=== PATIENT | female | born 1940 | race Caucasian/White ===

== ENCOUNTER → 2017-06-10 | Outpatient (CLI) | payer MEDICARE, BC, SELFPAY | PROVIDERS: Family Provider Internal Medicine; Visit Provider Orthopaedic Surgery | DX: S82.831D Other fracture of upper and lower end of right fibula, subsequent encounter for closed fracture with routine healing (principal) | CPT/HCPCS: 73610 ==

== ENCOUNTER → 2017-08-10 11:40 | Outpatient (CLI) | payer MEDICARE, BC, SELFPAY ==
--- NOTE | 2017-08-10 11:50 | XR_ITS ---
XR chest 2V HISTORY: ITS.REASON: COPD,SHORTNESS OF AIR ORDERING PHYSICIAN: Frank Marie PATIENT AGE: 77 years COMPARISON: 04/19/2016 FINDINGS: The cardiomediastinal silhouette and pulmonary vascularity are within normal limits. Hyperinflation with hyperlucency of the upper lobes consistent with edema/COPD. Calcified granuloma is present in the left lower lobe. There are mild atelectatic changes in the right middle lobe. No acute bony anomalies. IMPRESSION: COPD/emphysema. Right middle lobe atelectasis.
== END ==
PROVIDERS: PCP Internal Medicine; Visit Provider Internal Medicine
DX: J44.9 Chronic obstructive pulmonary disease, unspecified (principal); R06.02 Shortness of breath
CPT/HCPCS: 71046

== ENCOUNTER → 2017-08-12 12:41 | Outpatient (CLI) | payer MEDICARE, BC, SELFPAY ==
--- NOTE | 2017-08-12 12:46 | CA_ITS ---
PROCEDURE: 2-D M-mode and color Doppler study INDICATIONS FOR THE TEST: Chest pain+ COPD+ Heart Murmur Tobacco Smokingex Palpitations Fatigue Syncope Edema Hypertension Diabetes Mellitus Rheumatic Fever SOB+ESPINOZA Obesity+Hyperlipidemia+ Family History HD Additional History Abn EKG PATIENT INFORMATION HEIGHT: 67 WEIGHT: 196 GENDER: Female B/P: 93/61 2-D/M-MODE INTERPRETATION: 2-D MEASUREMENTS OBSERVED VALUES IN CMS Right Ventricular Dimension (RVDd) 1.7 Interventricular Septum (Thickness)(IVsd) 1.0 Left Ventricular Internal Dimensions(LVIDd) 3.9 Left Ventricular Posterior Wall (Thickness)(LVPWd) 0.9 Aortic Root 2.3 Aortic Cusp Separation 2.0 Left Atrial Dimensions (LAD) 2.0 2D 1. Technically difficult study because of the patient's factor and poor acoustic windows 2. Left atrium is normal size, left ventricle is normal size, there is probably preserved left ventricular systolic function, visually estimated ejection fraction 55% with no obvious regional wall motion abnormality, endocardial surfaces are poorly visualized. 3. The right-sided chambers are relatively normal size and function. 4. The aortic valve is minimally thickened and fibrosed. 5. The mitral and tricuspid valve are grossly normal. 6. The pulmonic valve is poorly visualized 7. No significant pericardial effusion noted. DOPPLER INTERROGATION: Doppler interrogation of the aortic, mitral and tricuspid valvular presence of mild mitral and tricuspid regurgitation, tricuspid and jet velocity insufficient for calculation of the right ventricular systolic pressure, diastolic parameters are inconclusive. CONCLUSION: 1. Normal left ventricular size, preserved left ventricular systolic function, visually estimated ejection fraction 55% with no obvious regional wall motion abnormality, diastolic parameters are inconclusive, this is technically difficult study because of the patient's factor and poor acoustic windows, endocardial subsequent poorly visualized. 2. Mild mitral and tricuspid regurgitation 3. No significant pericardial effusion noted.
== END ==
PROVIDERS: Family Provider Internal Medicine; PCP Internal Medicine; Visit Provider Internal Medicine
DX: J44.9 Chronic obstructive pulmonary disease, unspecified (principal); I27.81 Cor pulmonale (chronic); I08.1 Rheumatic disorders of both mitral and tricuspid valves
CPT/HCPCS: 93306

== ENCOUNTER → 2019-04-10 10:11 | Outpatient (POV) | payer MEDICARE, BC, SELFPAY | PROVIDERS: Visit Provider Dermatology | DX: Z00.00 Encounter for general adult medical examination without abnormal findings (principal) ==

== ENCOUNTER 2021-02-03 10:48 | Observation (INO) | payer MEDICARE, BC, SELFPAY ==
--- NOTE | 2021-02-03 11:28 | XR_ITS ---
PROCEDURE: XR CHEST PORTABLE CLINICAL HISTORY: cough COMPARISON: CR CXR CHEST(2 VIEWS-NOT PORTABLE) from 04/19/2016 CR CXR2V XR chest 2V from 08/10/2017 FINDINGS: Mild cardiomegaly with mild pulmonary venous congestion suggesting mild CHF. COPD with increased lucency in the right upper lobe similar to the previous exam. Old granulomatous disease. Chronic changes are present in the right lower lobe. There is minimal blunting of the CP angle suggesting small bilateral effusions. No acute bony abnormalities. IMPRESSION: COPD with hyper lucency of the right upper lobe with mild CHF and small bilateral effusions Dictated by: Benito Forrest MD 02/03/2021 12:34 Benito Forrest MD in [place] 02/03/2021 12:34
--- NOTE | 2021-02-03 11:30 | HMH.EDGENADL ---
ED Disposition Clinical Impression: COVID-19 Respiratory failure with hypoxia Qualifiers: Chronicity: acute on chronic Qualified Code(s): J96.21 - Acute and chronic respiratory failure with hypoxia COPD (chronic obstructive pulmonary disease) Qualifiers: COPD type: unspecified COPD Qualified Code(s): J44.9 - Chronic obstructive pulmonary disease, unspecified Disposition: Admitted as Observation Condition on Discharge: Serious Time of Disposition: 14:54 - Critical Care Critical Care Time: Yes Attestation: On 02/03/21, the high probability of a clinically significant, sudden or life threatening deterioration of the following system(s) required my full and direct attention, intervention and personal management. The time I documented below is in addition to time spent performing reported procedures but includes the following listed in this critical care notation. Vital system(s) involved:: Respiratory Failure My critical care processes included: Assessment & monitoring of V/S, Initial and Re-exams, Coordinating Care, Medication Orders and management, Documentation Medical Decision Making - Medical Records Medical records reviewed: Yes: I reviewed the patient's medical records. - Cesar Inquiry Pt receiving controlled substance: No Vital Signs: 02/03/21 11:34 Temperature 98.8 F Temperature Source Oral Pulse Rate [Right Radial] 132 H Respiratory Rate 24 Blood Pressure [Right Arm] 132/72 Blood Pressure Mean [Right Arm] 92 Blood Pressure Source [Right Arm] Automatic Cuff Blood Pressure Position [Right Arm] Sitting 02 Sat by Pulse Oximetry 97 Oxygen Delivery Method Nasal Cannula Oxygen Flow Rate (LPM) 3 - Lab Data Lab Results 02/03/21 11:28: VBG pH 7.26 L, VBG pCO2 43.4, VBG pO2 39.4, VBG HCO3 18.9 L, VBG Total CO2 20.2 L, VBG O2 Saturation 72.2 H, VBG Base Excess -8.3 L 02/03/21 12:05: WBC 10.3, RBC 4.20, Hgb 12.2, Hct 38.0, MCV 90.5, MCH 29.2, MCHC 32.3, RDW 14.2, Plt Count 299, MPV 8.9, Neut % (Auto) 84.7 H, Lymph % (Auto) 9.0 L, [place] % (Auto) 5.3, Eos % (Auto) 0.2, Baso % (Auto) 0.7, Neut # (Auto) 8.8 H, Lymph # (Auto) 0.9, [place] # (Auto) 0.6, Eos # (Auto) 0.0, Baso # (Auto) 0.1 02/03/21 12:05: D-Dimer 0.38 02/03/21 12:05: Sodium 137, Potassium 3.7, Chloride 101, Carbon Dioxide 26, Anion Gap 13.7, BUN 12, Creatinine 0.90, Estimated Creat Clear 60, Estimated GFR 61, Est GFR ( Amer) 73, Glucose 97, Calcium 8.7, Total Bilirubin 0.4, AST 31, ALT 21, Alkaline Phosphatase 82, Troponin I < 0.01, Total Protein 7.0, Albumin 3.8, Globulin 3.2, Albumin/Globulin Ratio 1.2 02/03/21 12:05: NT-Pro-B Natriuret Pep 248 02/03/21 12:05: SARS-CoV-2 (PCR) Detected A, Influenza A Untype (PCR) Not detected, Influenza Type B (PCR) Not detected 02/03/21 12:05: Lactate 0.7 Result diagrams: 02/03/21 12:05 02/03/21 12:05 Orders (Tests/Meds): ED MEDICATIONS Discontinued Medications Generic Name Dose Route Start Last Admin Trade Name Freq PRN Reason Stop Dose Admin Dexamethasone Sodium Phosphate 8 mg 02/03/21 11:29 02/03/21 12:36 Dexamethasone 4mg/Ml 1ml Vial IV 02/03/21 11:30 8 mg ONCE ONE Administration Ceftriaxone Sodium 1 gm/ 50 mls @ 100 mls/hr 02/03/21 11:29 02/03/21 12:36 Sodium Chloride IV 02/03/21 11:58 100 mls/hr ONCE ONE Administration Azithromycin 500 mg/ Sodium 250 mls @ 250 mls/hr 02/03/21 11:30 Chloride IV 02/03/21 11:31 ONCE ONE Sodium Chloride 1,000 mls @ 999 mls/hr 02/03/21 11:45 02/03/21 12:36 Sod Chlor 0.9% 1000ml Bag IV 02/03/21 12:45 999 mls/hr .Q1H1M MAGALI Administration ORDERS Category Date Time Status Troponin I Q3H Lab 02/03/21 14:30 Ordered Troponin I Q3H Lab 02/03/21 17:30 Ordered Blood Culture Stat Micro 02/03/21 12:05 Received ECG Request by /Colten Stat Y 02/03/21 11:28 Ordered - Radiology Data #1 Image(s): Chest Image Reviewed: Yes I reviewed the patient's radiology results, Yes I reviewed the patient's radiology sayra
[2021-02-03 11:34] VITALS: BP 132/72; PULSE 132; RESP 24; TEMP 37.1; O2SAT 97; BMI 29.3
[2021-02-03 12:43] LABS: Influenza A, PCR Not Detected (NotDetected); Influenza B, PCR Not Detected (NotDetected)
[2021-02-03 12:47] LABS: Basophils # 0.1 K/mm3 (0-0.2); Basophils % 0.7 % (0.1-2.0); Eosinophils % 0.2 % (0.1-12.0); Hemoglobin 12.2 g/dL (12.2-16.2); Lymphocytes # 0.9 K/mm3 (0.7-4.5); Mean Corpuscular HGB Conc 32.3 g/dL (31.8-35.4); Mean Corpuscular Hemoglobin 29.2 pg (27.0-31.2); Mean Corpuscular Volume 90.5 fl (81-99); Mean Platelet Volume 8.9 fl (7.4-10.4); Monocytes # 0.6 K/mm3 (0.1-1.0); Monocytes % 5.3 % (1.7-9.3); Neutrophils # 8.8 K/mm3 (1.8-7.8); Neutrophils % 84.7 % (37.0-80.0); Platelet Count 299 K/mm3 (142-424); Red Cell Distribution Width 14.2 % (11.5-17.5); White Blood Count 10.3 K/mm3 (4.8-10.8)
[2021-02-03 13:16] LABS: Chloride 101 mmol/L (98-107)
[2021-02-03 13:17] LABS: Potassium 3.7 mmoL/L (3.5-5.1); Sodium 137 mmol/L (136-145)
[2021-02-03 13:19] LABS: Alanine Aminotransferase 21 U/L (12-78); Albumin Level 3.8 g/dl (3.5-5.0); Albumin/Globulin Ratio 1.2 (1.1-1.8); Alkaline Phosphatase 82 U/L (38-126); Anion Gap 13.7 mEq/L (5-15); Aspartate Amino Transferase 31 U/L (14-36); Bilirubin,Total 0.4 mg/dl (0.2-1.3); Blood Urea Nitrogen 12 mg/dl (7-17); Calcium 8.7 mg/dl (8.4-10.2); Carbon Dioxide 26 mmol/L (22.0-30.0); Creatinine Clearance Estimated 60 mL/min (50-200); Estimated Glomerular Filt Rate 61 ml/min (>60); GFR (African American) 73 ML/MIN (>60); Globulin 3.2 g/dL (1.3-3.2); Glucose 97 mg/dl (74-100); Lactic Acid 0.7 mmol/L (0.7-2.1)
[2021-02-03 13:22] LABS: Coronavirus 19, PCR Detected (NotDetected)
[2021-02-03 13:23] LABS: D-Dimer 0.38 ug/mL (0.0-0.5)
[2021-02-03 13:29] LABS: NT Pro Brain Natriuretic Pep. 248 pg/mL (0-450)
[2021-02-03 13:32] LABS: Troponin I < 0.01 ng/ml (0.00-0.034)
[2021-02-03 13:45] LABS: VBG Base Excess -8.3 mmol/L (-2.4-2.3); VBG HCO3 18.9 mmol/L (23-30); VBG Oxygen Saturation 72.2 % (50-70); VBG PCO2 43.4 mmol/L (35-51); VBG PH 7.26 mmol/L (7.31-7.41); VBG PO2 39.4 mmol/L (28-40); VBG Total CO2 20.2 mmol/L (23-27)
--- NOTE | 2021-02-03 14:33 | PC.NURSE ---
GLENNA MESSER speaking with DR. Huff who is bronzer for service pt
--- NOTE | 2021-02-03 14:34 | PC.NURSE ---
notified care management of admission, spoke with Estrella
[2021-02-03 14:50] VITALS: BMI 29.0
[2021-02-03 15:45] VITALS: BP 97/75; PULSE 106; RESP 18; TEMP 37.2; O2SAT 93
--- NOTE | 2021-02-03 15:45 | PC.NURSE ---
pt admitted to [facility] unit room 266 via wheelchair. Pt on 3L NC continuous with sat 92%. Hx of COPD and wears home O2 @ 3L NC. Tachycardia upon arrival with HR 110s. Pt is A&O. Is ambulatory with standby assist. No skin breakdown noted.
[2021-02-03 15:52] VITALS: BP 129/74; PULSE 78; RESP 22; TEMP 37; O2SAT 96
--- NOTE | 2021-02-03 17:50 | ECG_ITS ---
APPROVED REPORT Exam: Resting ECG HR:99 bpm ECG Measurements Heart Rate 99 AXES ID 142 P 65 QRSd 80 QRS 75 QT 342 T 75 QTc 438 Conclusion Normal sinus rhythm with sinus arrhythmia Nonspecific ST and T wave abnormality Abnormal ECG Electronically signed by : Yobany Cabrera MD 02/04/2021 14:11:47
--- NOTE | 2021-02-03 17:58 | HMH.HP ---
*Admission Date: 02/03/21 <Bienvenido Huff - 02/03/21 21:16> *Chief complaint: shortness of breath <StewartMichelle - 02/03/21 18:17> *History of present illness: Ms. Casper is a 80-year-old female with a history of oxygen dependent COPD who has experienced progressive shortness of breath over the last few days. With decrease in O2 sats at home she presented to the emergency room. home. Will evaluation in the emergency room she was found to have pneumonia with respiratory failure. She received 8 mg of dexamethasone IV, Rocephin IV, Zithromax IV and received a liter of IV fluids. Following is documentation from the ER. In summary this is a 80-year-old female with history of COPD presenting to the emergency department with cough, chest congestion, fevers, chills, shortness of breath. Patient is tachycardic on arrival at 130 bpm. Blood pressure adequate. Initial oxygen saturation is 94% on 3 L by nasal cannula. Differential diagnoses include COPD exacerbation, pneumonia, bronchitis, COVID-19. Cannot exclude atypical ACS or pulmonary embolism. Will obtain CBC, CMP, chest x-ray, EKG, troponin profile, D-dimer, Covid test. Patient given dexamethasone, Rocephin, azithromycin, IV fluids. Chest x-ray concerning for right-sided hypo lucency, possible pneumonia. Laboratory results reassuring. No significant leukocytosis. No glucose or electrolyte derangements. No renal insufficiency. Covid positive. Patient's overall presentation is most concerning for COVID-19. Worsening acute on chronic hypoxic respiratory failure. She is on day 4 of illness, concern for decompensation. Informed patient and of positive Covid. her primary care physician is Dr. Marie. Dr. Huff consulted for admission. The above is from ER documentation. Chest x-ray revealed COPD with hypo lucency level upper lobe with mild CHF and small bilateral effusions. Blood chemistries were normal Covid test was positive. At the time of this exam patient is on O2 at 4 L/min. She is having runs of SVT alternating with sinus rhythm. She is noted to have occasional PVCs as well. She is dyspneic with conversation. <Michelle Stewart - 02/04/21 09:47> [facility] History Medical History: Reports:: Congestive Heart Failure, Chronic Obstructive Pulmonary Disease (COPD) Denies:: Atrial Fibrillation, Cancer, Diabetes Mellitus Type 1, Diabetes Mellitus Type 2, Internal Pacemaker, MRSA <PatMichelle 02/03/21 18:24> *Have you ever received a pneumonia vaccine?: No <PatMichelle - 02/03/21 18:17> *Have you received a flu vaccine this season?: No <PatMichelle - 02/03/21 18:17> Other Medical History: Reports: Thyroid Disease <PatMichelle 02/03/21 18:17> Other Surgeries: Yes: Tubal Ligation. No: Pacemaker <PatMichelle - 02/03/21 18:17> Amputation: No <StewartMichelle 02/03/21 18:17> - *Social History Smoking Status: Former smoker <PatMichelle - 02/03/21 18:17> Alcohol Intake: never <PatMichelle - 02/03/21 18:17> *Occupational Status:: retired <StewartMichelle 02/03/21 18:17> Housing: house <PatMichelle 02/03/21 18:17> Household Members: spouse <PatMichelle 02/03/21 18:17> *Travel in the last 8 weeks: None <StewartMichelle 02/03/21 18:17> Family Hx:: no Diabetes, no Stroke <StewartMichelle 02/03/21 18:17> Review of Systems - Constitutional Denies fatigue, Denies fever(s), Denies lack of energy <PatMichelle 02/03/21 18:17> - Eyes Den[facility] change in [facility] 18:17[facility] - ENT Denies ear pain, Denies nasal congestion, Denies sore throat <Stewart,Michelle 02/03/21 18:17> - *Cardiovascular Reports shortness of breath, Denies chest pain <StewartMichelle 02/03/21 18:17> - *Respiratory Reports chest congestion, Reports cough, Reports shortness of breath, Denies coughing up blood <PatMichelle 02/03/21 18:17> - *Gastrointestinal Denies abdominal pain, Denies change in stools, Denies vomiting blood, Denies bright,
[2021-02-03 18:30] VITALS: O2SAT 95
[2021-02-03 19:38] LABS: Chloride 105 mmol/L (98-107); Sodium 139 mmol/L (136-145)
[2021-02-03 19:40] LABS: Blood Urea Nitrogen 13 mg/dl (7-17); Creatinine Clearance Estimated 60 mL/min (50-200); Estimated Glomerular Filt Rate 69 ml/min (>60); GFR (African American) 84 ML/MIN (>60)
[2021-02-03 19:41] LABS: Alanine Aminotransferase 21 U/L (12-78); Albumin Level 3.4 g/dl (3.5-5.0); Albumin/Globulin Ratio 1.1 (1.1-1.8); Alkaline Phosphatase 78 U/L (38-126); Aspartate Amino Transferase 29 U/L (14-36); Bilirubin,Total 0.2 mg/dl (0.2-1.3); Calcium 8.3 mg/dl (8.4-10.2); Carbon Dioxide 25 mmol/L (22.0-30.0); Globulin 3.1 g/dL (1.3-3.2); Glucose 131 mg/dl (74-100); Total Protein,Serum 6.5 g/dl (6.3-8.2)
[2021-02-03 20:00] VITALS: BP 116/54; PULSE 88; RESP 22; TEMP 37.4; O2SAT 94
[2021-02-03 22:03] VITALS: O2SAT 93
[2021-02-04] VITALS (8 sets, daily range): BP systolic 101–152; BP diastolic 46–83; PULSE 74–100; RESP 18–22; TEMP 36.7–36.9; O2SAT 93–99; BMI 29.1; BMI 29.0
--- NOTE | 2021-02-04 04:40 | PC.NURSE ---
shift summary patient awake alert and oriented x 4. cardiac catheterization technician has shown sr while at rest. heart rate elevates to 130s with any activity. o2 sats have maintained greater than 94% on 3l nc except with exertion. patient sats drop to 88% with ambulation. breath sounds coarse throughout all jacob. strong nonproductive cough present.
[2021-02-04 06:22] LABS: Basophils % 0.2 % (0.1-2.0); Eosinophils % 0.1 % (0.1-12.0); Hematocrit 33.7 % (37.0-47.0); Lymphocytes # 1.4 K/mm3 (0.7-4.5); Lymphocytes % 18.9 % (10-50); Mean Corpuscular HGB Conc 32.6 g/dL (31.8-35.4); Mean Corpuscular Hemoglobin 29.9 pg (27.0-31.2); Mean Corpuscular Volume 91.6 fl (81-99); Mean Platelet Volume 9.3 fl (7.4-10.4); Monocytes # 0.5 K/mm3 (0.1-1.0); Monocytes % 6.9 % (1.7-9.3); Neutrophils # 5.5 K/mm3 (1.8-7.8); Neutrophils % 73.9 % (37.0-80.0); Platelet Count 276 K/mm3 (142-424); Red Blood Count 3.68 M/mm3 (4.20-5.40); Red Cell Distribution Width 14.4 % (11.5-17.5); White Blood Count 7.4 K/mm3 (4.8-10.8)
[2021-02-04 06:32] LABS: Chloride 108 mmol/L (98-107); Sodium 140 mmol/L (136-145)
[2021-02-04 06:35] LABS: Blood Urea Nitrogen 13 mg/dl (7-17); Calcium 8.1 mg/dl (8.4-10.2); Carbon Dioxide 25 mmol/L (22.0-30.0); Creatinine Clearance Estimated 60 mL/min (50-200); Estimated Glomerular Filt Rate 69 ml/min (>60); GFR (African American) 84 ML/MIN (>60); Glucose 86 mg/dl (74-100)
--- NOTE | 2021-02-04 07:00 | XR_ITS ---
PROCEDURE: XR CHEST PORTABLE CLINICAL HISTORY: COVID Cough COMPARISON: CR CXR CHEST(2 VIEWS-NOT PORTABLE) from 04/19/2016 CR CXR2V XR chest 2V from 08/10/2017 CR XR CHEST PORTABLE from 02/03/2021 FINDINGS: Borderline cardiomegaly. Mild pulmonary venous congestion suggesting mild CHF. Small bilateral effusions. Patchy density now noted in the right mid lower lung zone suspicious for developing pneumonia. No acute bony abnormalities. IMPRESSION: Mild CHF with developing ground-glass opacity in the right mid and right lower lobe suspicious for pneumonia. Dictated by: Benito Forrest MD 02/04/2021 07:19 Benito Forrest MD in [place] 02/04/2021 07:19
--- NOTE | 2021-02-04 07:25 | HMH.PHAVTE ---
[facility] Pharmacy VTE Monitoring - Patient Demographics Admission date: 02/03/21 Report Date: 02/04/21 Time: 07:25 Allergies/Adverse Reactions: Patient Allergies codeine [CODEINE] Allergy (Mild, Verified 02/03/21 11:51) Sulfa (Sulfonamide Antibiotics) [SULFA (SULFONAMIDE ANTIBIOTICS)] Allergy (Mild, Verified 02/03/21 11:51) Height: 1.68 m Weight: 82.157 kg Patient Problems: Current Active Problems COVID-19 (Acute) Respiratory failure with hypoxia (Acute) COPD (chronic obstructive pulmonary disease) (Acute) Hypothyroidism (Acute) Acute and chronic respiratory failure with hypoxia (Acute) COVID-19 virus infection (Acute) - VTE Risk Labs: VTE Related Lab Results Hgb 11.0 g/dL (12.2-16.2) L 02/04/21 05:10 Hct 33.7 % (37.0-47.0) L 02/04/21 05:10 Plt Count 276 K/mm3 (142-424) 02/04/21 05:10 BUN 13 mg/dl (7-17) 02/04/21 05:10 Creatinine 0.80 mg/dl (0.52-1.04) 02/04/21 05:10 Estimated Creat Clear 60 mL/min (50-200) 02/04/21 05:10 Was VTE Risk Assessment Performed: Yes VTE Score: 5 VTE Risk Level: Low Risk - Prophylaxis VTE Prophylaxis Ordered?: Yes Types of VTE Prophylaxis: TEDS Knee High, Pharmacological Location of Applied Device: Bilateral Lower Extremeties Pharmacologic Type: Enoxaparin
--- NOTE | 2021-02-04 07:44 | HMH.PHAINT ---
MEDICATION RECONCILIATION COMPLETED ON PATIENT USING EXTERNAL FILL HISTORY FROM PHARMACY. -GONSALO JIMÉNEZ, ARNAVD
--- NOTE | 2021-02-04 08:29 | HMH.ACPN2 ---
<Michelle Stewart - Last Filed: 02/04/21 08:29> Internal Medicine - PN: Subj *Date: 02/04/21 *Time: 08:29 Interval history: Patient immediately states she wants to go home. She states she cannot rest of here and she is absolutely worn out. She denies chest pain. She states her cough and breathing are both better. She ate well for breakfast. Currently she is sitting up in a chair and tolerates well. She ambulates to the bathroom without difficulty. Nursing reports tachycardia with any activity. O2 sats remained greater than 90% with O2 at 3 L which is what she uses at home. Exam Vital signs and Labs for Last 24 Hours: Temp Pulse Resp BP Pulse Ox 98.1 F 100 H 22 148/71 H 93 L 02/04/21 07:39 02/04/21 07:39 02/04/21 07:39 02/04/21 07:39 02/04/21 07:39 Laboratory Results - last 24 hr 02/03/21 11:28: VBG pH 7.26 L, VBG pCO2 43.4, VBG pO2 39.4, VBG HCO3 18.9 L, VBG Total CO2 20.2 L, VBG O2 Saturation 72.2 H, VBG Base Excess -8.3 L 02/03/21 12:05: WBC 10.3, RBC 4.20, Hgb 12.2, Hct 38.0, MCV 90.5, MCH 29.2, MCHC 32.3, RDW 14.2, Plt Count 299, MPV 8.9, Neut % (Auto) 84.7 H, Lymph % (Auto) 9.0 L, [place] % (Auto) 5.3, Eos % (Auto) 0.2, Baso % (Auto) 0.7, Neut # (Auto) 8.8 H, Lymph # (Auto) 0.9, [place] # (Auto) 0.6, Eos # (Auto) 0.0, Baso # (Auto) 0.1 02/03/21 12:05: D-Dimer 0.38 02/03/21 12:05: Sodium 137, Potassium 3.7, Chloride 101, Carbon Dioxide 26, Anion Gap 13.7, BUN 12, Creatinine 0.90, Estimated Creat Clear 60, Estimated GFR 61, Est GFR ( Amer) 73, Glucose 97, Calcium 8.7, Total Bilirubin 0.4, AST 31, ALT 21, Alkaline Phosphatase 82, Troponin I < 0.01, Total Protein 7.0, Albumin 3.8, Globulin 3.2, Albumin/Globulin Ratio 1.2 02/03/21 12:05: NT-Pro-B Natriuret Pep 248 02/03/21 12:05: SARS-CoV-2 (PCR) Detected A, Influenza A Untype (PCR) Not detected, Influenza Type B (PCR) Not detected 02/03/21 12:05: Lactate 0.7 02/03/21 19:20: Sodium 139, Potassium 4.0, Chloride 105, Carbon Dioxide 25, Anion Gap 13.0, BUN 13, Creatinine 0.80, Estimated Creat Clear 60, Estimated GFR 69, Est GFR ( Amer) 84, Glucose 131 H D, Calcium 8.3 L, Total Bilirubin 0.2, AST 29, ALT 21, Alkaline Phosphatase 78, Total Protein 6.5, Albumin 3.4 L D, Globulin 3.1, Albumin/Globulin Ratio 1.1 02/04/21 05:10: WBC 7.4 D, RBC 3.68 L, Hgb 11.0 L, Hct 33.7 L, MCV 91.6, MCH 29.9, MCHC 32.6, RDW 14.4, Plt Count 276, MPV 9.3, Neut % (Auto) 73.9, Lymph % (Auto) 18.9, [place] % (Auto) 6.9, Eos % (Auto) 0.1, Baso % (Auto) 0.2, Neut # (Auto) 5.5, Lymph # (Auto) 1.4, [place] # (Auto) 0.5, Eos # (Auto) 0.0, Baso # (Auto) 0.0 02/04/21 05:10: Sodium 140, Potassium 4.0, Chloride 108 H, Carbon Dioxide 25, Anion Gap 11.0, BUN 13, Creatinine 0.80, Estimated Creat Clear 60, Estimated GFR 69, Est GFR ( Amer) 84, Glucose 86 D, Calcium 8.1 L I & O for Last 24 hours: Intake & Output 02/01/21 02/02/21 02/03/21 02/04/21 11:59 11:59 11:59 11:59 Intake Total 3375 / 3375 Balance 3375 / 3375 Weight 182 lb 181 lb 2 oz - Constitutional no acute distress Comments: Currently sitting up in chair at bedside and has completed her breakfast. - *Routine Respiratory Exam Present: diminished air movement (On the right) - *Routine Cardiovascular Exam Present: RRR (Monitor showing sinus rhythm in the 90s) - *Routine Abdominal Exam Present: soft, normoactive bowel sounds. Absent: tenderness - *Routine Extremities Exam Absent: edema, calf tenderness - *Routine Neurological Exam Present: alert, oriented X3 Assessment and Plan (1) Hypothyroidism Status: Acute Category: Medical Code(s): E03.9 - Hypothyroidism, unspecified (2) COPD (chronic obstructive pulmonary disease) Status: Acute Qualifiers: COPD type: unspecified COPD Qualified Code(s): J44.9 - Chronic obstructive pulmonary disease, unspecified Category: Medical Code(s): J44.9 - Chronic obstructive pulmonary disease, unspecified (5) Acute and chronic respiratory failure with
--- NOTE | 2021-02-04 09:03 | PC.NURSE ---
Spoke w/ Dr. Marie' office staff to make follow-up appointment. States pt will need to call office to set up follow-up and to schedule outpatient infusion treatment. Was unable to get a follow-up date/time.
--- NOTE | 2021-02-04 11:35 | HMH.PULMCON ---
*Admission Date: 02/03/21 *Reason for consult:: COVID-19 pneumonia *History of present illness: Ms. Casper is 80-year-old female carries a diagnosis of COPD on 3 L home oxygen therapy at home presented to the hospital with worsening respiratory failure and found to be COVID-19 pneumonia and pulmonary was called for further management [facility] History Medical History: Reports:: Congestive Heart Failure, Chronic Obstructive Pulmonary Disease (COPD) Denies:: Atrial Fibrillation, Cancer, Diabetes Mellitus Type 1, Diabetes Mellitus Type 2, Internal Pacemaker, MRSA *Have you ever received a pneumonia vaccine?: No *Have you received a flu vaccine this season?: No Other Medical History: Reports: Thyroid Disease Other Surgeries: Yes: Tubal Ligation. No: Pacemaker Amputation: No - *Social History Smoking Status: Former smoker Alcohol Intake: never *Occupational Status:: retired Housing: house Household Members: spouse *Travel in the last 8 weeks: None Family Hx:: no Diabetes, no Stroke ROS - Cons Reports anorexia, Reports body ache(s), Reports chills - Card Reports shortness of breath, Reports shortness of breath with activity, Reports leg swelling - Resp Respiratory: Reports non-productive cough, Reports dyspnea on exertion, Denies coughing up blood, Denies pain on inspiration - GI Gastrointestingal: Denies: abdominal pain - Psych Reports abnormal sleep pattern Meds Home Medications Medication Instructions Recorded Confirmed Type Fluticasone/Umeclidin/Vilanter 1 puff IH DAILY 02/03/21 02/04/21 History [Trelegy Ellipta 100-62.5-25] Levothyroxine Sodium 100 mcg PO DAILY 02/03/21 02/03/21 History [Levothyroxine 100mcg (0.1MG) Tab] Oxazepam 10 mg PO TID 02/03/21 02/03/21 History Roflumilast [Daliresp] 250 mcg PO DAILY 02/03/21 02/03/21 History levalbuterol HCL [Xopenex 1.25 mg IH Q8H 02/03/21 02/04/21 History 1.25mg/3mL neb] levoFLOXacin [Levaquin 500mg 500 mg PO DAILY #5 tab 02/04/21 Rx tab] Allergies Allergy/AdvReac Type Severity Reaction Status Date / Time codeine [CODEINE] Allergy Mild Verified 02/03/21 11:51 Sulfa (Sulfonamide Allergy Mild Verified 02/03/21 11:51 Antibiotics) [SULFA (SULFONAMIDE ANTIBIOTICS)] Exam - Constitutional Constitutional:: Present: no acute distress, comfortable - HENMT Exam HENMT: Present: atraumatic - Eye Exam Eyes:: Present: normal appearance both eyes and related structures - Neck Exam Neck:: Present: normal visual inspection - Respiratory Exam Respiratory:: Present: able to speak in complete sentences, respiratory distress, crackles - Cardiovascular Exam Cardiac:: Present: S1, S2 - GI Exam GI:: Present: soft - Skin Exam Skin: Present: warm, no rash - Neurological Exam Neurological: Present: alert, awake, normal cognition - Extremities Exam Extremities: Present: no cyanosis, no clubbing, clubbing - Psychiatric Exam Psychiatric: Present: normal affect Internal Medicine - CN: Reslt - Labs CBC & Chem 7: 02/04/21 05:10 02/04/21 05:10 Labs: Short CBC 02/03/21 02/04/21 Range/Units 12:05 05:10 WBC 10.3 7.4 D (4.8-10.8) K/mm3 Hgb 12.2 11.0 L (12.2-16.2) g/dL Hct 38.0 33.7 L (37.0-47.0) % Plt Count 299 276 (142-424) K/mm3 [facility] 02/03/21 02/03/21 02/04/21 12:05 19:20 05:10 Sodium 137 139 140 Potassium 3.7 4.0 4.0 Chloride 101 105 108 H Carbon Dioxide 26 25 25 BUN 12 13 13 Creatinine 0.90 0.80 0.80 Glucose 97 131 H D 86 D Calcium 8.7 8.3 L 8.1 L Cardiac Enzymes 02/03/21 Range/Units 12:05 Troponin I < 0.01 (0.00-0.034) ng/ml Liver Function 02/03/21 02/03/21 Range/Units 12:05 19:20 Total Bilirubin 0.4 0.2 (0.2-1.3) mg/dl AST 31 29 (14-36) U/L ALT 21 21 (12-78) U/L Alkaline Phosphatase 82 78 (38-126) U/L Albumin 3.8 3.4 L D (3.5-5.0) g/dl - ABG Interpretation ABG results: 02/03/21 11:28 VBG pH
--- NOTE | 2021-02-05 10:43 | HMH.DCSUM ---
General - General Admission date:: 02/03/21 <Bienvenido Huff - 03/08/21 22:55> 02/03/21 <Michelle Stewart - 02/05/21 11:00> Discharge date: 02/04/21 <Michelle Stewart - 02/05/21 11:00> HPI HPI: Ms. Casper is a 80-year-old female with a history of oxygen dependent COPD who has experienced progressive shortness of breath over the last few days. With decrease in O2 sats at home she presented to the emergency room. home. Will evaluation in the emergency room she was found to have pneumonia with respiratory failure. She received 8 mg of dexamethasone IV, Rocephin IV, Zithromax IV and received a liter of IV fluids. Following is documentation from the ER. In summary this is a 80-year-old female with history of COPD presenting to the emergency department with cough, chest congestion, fevers, chills, shortness of breath. Patient is tachycardic on arrival at 130 bpm. Blood pressure adequate. Initial oxygen saturation is 94% on 3 L by nasal cannula. Differential diagnoses include COPD exacerbation, pneumonia, bronchitis, COVID-19. Cannot exclude atypical ACS or pulmonary embolism. Will obtain CBC, CMP, chest x-ray, EKG, troponin profile, D-dimer, Covid test. Patient given dexamethasone, Rocephin, azithromycin, IV fluids. Chest x-ray concerning for right-sided hypo lucency, possible pneumonia. Laboratory results reassuring. No significant leukocytosis. No glucose or electrolyte derangements. No renal insufficiency. Covid positive. Patient's overall presentation is most concerning for COVID-19. Worsening acute on chronic hypoxic respiratory failure. She is on day 4 of illness, concern for decompensation. Informed patient and of positive Covid. her primary care physician is Dr. Marie. Dr. Huff consulted for admission. The above is from ER documentation. Chest x-ray revealed COPD with hypo lucency level upper lobe with mild CHF and small bilateral effusions. Blood chemistries were normal. Covid test was positive. At the time of this exam patient was on O2 at 4 L/min. She was having runs of SVT alternating with sinus rhythm. She was noted to have occasional PVCs as well. She was dyspneic with conversation. <Michelle Stewart - 02/05/21 11:00> Hospital Course Hospital Course: After admission patient respiratory status did not improve. O2 sats remained in the 90s on oxygen at 3 to 4 L/min. She was started on Zithromax and Rocephin and continued with steroids. On 02/04/2021 patient was insistent upon going home. She stated that she was simply worn out and had been unable to sleep at all after being hospitalized. She did have a repeat chest x-ray which showed pneumonia. She was seen by Dr. Uriarte with the following notation: Assessment and Plan for all problems:: #COVID-19 pneumonia: #COPD: #Acute on chronic hypoxic respiratory failure: Ms. Casper is 80-year-old female carries a diagnosis of COPD on 3 L long-term oxygen at home presented hospital with worsening respiratory's and found to be COVID-19 pneumonia. Patient is morning examination is ready for discharge with all the monitors on hold. Her most recent oxygen saturation was 94% on 4 L nasal cannula. Patient admits significant improvement in her symptoms since admission from yesterday. She also appeared to be volume overloaded bilateral lower extremity edema on today's examination. Patient on trilogy inhaler therapy at home. D-dimer 0.38 on admission. Patient was initiated on remdesivir along with ceftriaxone and azithromycin on admission however patient's requesting to be discharged during which she was given Regen--Cov antibody cocktail. Overall patient admits her respiratory status did show significant improved and at baseline. Agree with current plans of discharge on levofloxacin however patient need a close follow-up with the primary care physician to monitor for continued improvement. Recommend continuing her her home inhaler therapy. No prior PFTs available fo
== END 2021-02-04 13:00 | disposition home or self-care (01) ==
LOC: UTC 10:56 → ER 11:19 → ICU 14:55 → 2ND 19:10
PROVIDERS: Nurse Practitioner Family; Admitting Provider Family Medicine; Emergency Provider Emergency Medicine; PCP Internal Medicine; Visit Provider Family Medicine
DX: J44.9 Chronic obstructive pulmonary disease, unspecified (principal); U07.1 COVID-19; J96.21 Acute and chronic respiratory failure with hypoxia; Z99.81 Dependence on supplemental oxygen; J12.82 Pneumonia due to coronavirus disease 2019; E03.9 Hypothyroidism, unspecified; I50.9 Heart failure, unspecified; Z88.2 Allergy status to sulfonamides; Z88.5 Allergy status to narcotic agent
CPT/HCPCS: G0378; 36415; 71045; 80048; 80053; 82803; 83605; 83880; 84484; 85025; 85378; 87040; 93005; 94640; 94760; 96365; 96367; 96375; 99284; J0456; U0003

== ENCOUNTER → 2021-04-13 16:48 | Outpatient (CLI) | payer MEDICARE, BC, SELFPAY ==
[2021-04-13 17:08] LABS: Basophils % 0.4 % (0.1-2.0); Eosinophils # 0.2 K/mm3 (0.0-0.4); Eosinophils % 2.2 % (0.1-12.0); Hematocrit 40.2 % (37.0-47.0); Hemoglobin 12.6 g/dL (12.2-16.2); Lymphocytes # 1.3 K/mm3 (0.7-4.5); Lymphocytes % 16.1 % (10-50); Mean Corpuscular HGB Conc 31.3 g/dL (31.8-35.4); Mean Corpuscular Hemoglobin 28.9 pg (27.0-31.2); Mean Corpuscular Volume 92.4 fl (81-99); Mean Platelet Volume 10.1 fl (7.4-10.4); Monocytes # 0.4 K/mm3 (0.1-1.0); Monocytes % 4.3 % (1.7-9.3); Neutrophils # 6.4 K/mm3 (1.8-7.8); Neutrophils % 76.9 % (37.0-80.0); Platelet Count 380 K/mm3 (142-424); Red Blood Count 4.34 M/mm3 (4.20-5.40); Red Cell Distribution Width 14.5 % (11.5-17.5); White Blood Count 8.4 K/mm3 (4.8-10.8)
[2021-04-13 17:55] LABS: Alanine Aminotransferase 17 U/L (12-78); Albumin Level 3.9 g/dl (3.5-5.0); Albumin/Globulin Ratio 1.3 (1.1-1.8); Alkaline Phosphatase 69 U/L (38-126); Anion Gap 11.4 mEq/L (5-15); Aspartate Amino Transferase 28 U/L (14-36); Bilirubin,Total 0.2 mg/dl (0.2-1.3); Blood Urea Nitrogen 11 mg/dl (7-17); Calcium 9.3 mg/dl (8.4-10.2); Carbon Dioxide 34 mmol/L (22.0-30.0); Chloride 99 mmol/L (98-107); Estimated Glomerular Filt Rate 81 ml/min (>60); GFR (African American) 98 ML/MIN (>60); Globulin 3.1 g/dL (1.3-3.2); Glucose 107 mg/dl (74-100); Potassium 4.4 mmoL/L (3.5-5.1); Sodium 140 mmol/L (136-145)
[2021-04-13 18:10] LABS: T4 (Thyroxine) 11.4 ug/dl (5.53-11.0)
[2021-04-13 18:24] LABS: Thyroid Stimulating Hormone 0.65 uIU/mL (0.465-4.68)
== END ==
PROVIDERS: Visit Provider Internal Medicine
DX: R53.1 Weakness (principal); E03.9 Hypothyroidism, unspecified; F41.9 Anxiety disorder, unspecified; J44.9 Chronic obstructive pulmonary disease, unspecified; E78.5 Hyperlipidemia, unspecified; D50.9 Iron deficiency anemia, unspecified
CPT/HCPCS: 80053; 84436; 84443; 85025

== ENCOUNTER → 2022-02-23 10:49 | Outpatient (CLI) | payer MEDICARE, BC, SELFPAY ==
--- NOTE | 2022-02-23 10:56 | XR_ITS ---
FINAL REPORT CLINICAL HISTORY: .ABD PAIN, VOMITING COMPARISON: Chest x-ray dated February 04, 2021 FINDINGS: Chest: A single view of the chest demonstrates no acute cardiopulmonary process. Abdomen: Flat and upright views of the abdomen demonstrate air-filled bowel loops in a nonspecific bowel gas pattern. There is no free air. IMPRESSION: Nonspecific bowel gas pattern. Reviewed, Interpreted and Dictated by Allan Cid III, MD Transcribed by Daniel Preciado Authenticated and [facility]
[2022-02-23 11:26] LABS: Microscopic, Urine URINE MICROSCOPIC (MICROSCOPIC)
[2022-02-23 11:42] LABS: Basophils # 0.1 K/mm3 (0-0.2); Eosinophils # 0.3 K/mm3 (0.0-0.4); Eosinophils % 3.3 % (0.1-12.0); Hematocrit 27.3 % (37.0-47.0); Lymphocytes # 1.7 K/mm3 (0.7-4.5); Mean Corpuscular HGB Conc 29.4 g/dL (31.8-35.4); Mean Corpuscular Hemoglobin 23.5 pg (27.0-31.2); Mean Corpuscular Volume 79.8 fl (81-99); Mean Platelet Volume 8.5 fl (7.4-10.4); Monocytes # 0.5 K/mm3 (0.1-1.0); Monocytes % 5.8 % (1.7-9.3); Neutrophils # 6.1 K/mm3 (1.8-7.8); Neutrophils % 69.8 % (37.0-80.0); Platelet Count 489 K/mm3 (142-424); Red Blood Count 3.42 M/mm3 (4.20-5.40); Red Cell Distribution Width 16.7 % (11.5-17.5); White Blood Count 8.7 K/mm3 (4.8-10.8)
[2022-02-23 11:47] LABS: Chloride 100 mmol/L (98-107); Potassium 4.6 mmoL/L (3.5-5.1); Sodium 141 mmol/L (136-145)
[2022-02-23 11:50] LABS: Alanine Aminotransferase 19 U/L (12-78); Albumin Level 4.3 g/dl (3.5-5.0); Albumin/Globulin Ratio 1.4 (1.1-1.8); Alkaline Phosphatase 93 U/L (38-126); Anion Gap 12.6 mEq/L (5-15); Aspartate Amino Transferase 30 U/L (14-36); Blood Urea Nitrogen 13 mg/dl (7-17); Carbon Dioxide 33 mmol/L (22.0-30.0); Estimated Glomerular Filt Rate 69 ml/min (>60); GFR (African American) 84 ML/MIN (>60); Globulin 3.1 g/dL (1.3-3.2); Total Protein,Serum 7.4 g/dl (6.3-8.2)
[2022-02-23 11:51] LABS: Calcium 8.6 mg/dl (8.4-10.2); Glucose 86 mg/dl (74-100)
[2022-02-23 11:55] LABS: Bilirubin,Total < 0.1 mg/dl (0.2-1.3)
[2022-02-23 12:00] LABS: Appearance,Urine CLEAR (Clear); Bilirubin,Urine Negative (Negative); Blood, Urine Negative (Negative); Color,Urine YELLOW (Yellow); Glucose,Urine (UA) Negative (Negative); Ketones,Urine Negative (Negative); Leukocyte Esterase,Urine Negative (Negative); Nitrate,Urine Negative (Negative); PH,Urine 6.5 (5.0-8.5); Protein,Urine Negative (Negative); Urobilinogen,Urine 0.2 EU/dl (0.2)
[2022-02-23 12:22] LABS: Thyroid Stimulating Hormone 0.63 uIU/mL (0.465-4.68)
[2022-02-23 12:29] LABS: Bacteria,Urine Trace /lpf; Squamous Epithelial Cell,Urine Occasional #/hpf (0-5); WBC,Urine Occasional #/hpf (0-3)
== END ==
PROVIDERS: PCP Internal Medicine; Visit Provider Internal Medicine
DX: E03.9 Hypothyroidism, unspecified (principal); R19.7 Diarrhea, unspecified; J44.1 Chronic obstructive pulmonary disease with (acute) exacerbation; N39.0 Urinary tract infection, site not specified; D64.9 Anemia, unspecified; Z86.2 Personal history of diseases of the blood and blood-forming organs and certain disorders involving the immune mechanism
CPT/HCPCS: 36415; 74021; 80053; 81001; 84443; 85025; 86850

== ENCOUNTER 2022-02-24 08:22 | Outpatient (CLI) | payer MEDICARE, BC, SELFPAY ==
[2022-02-24] VITALS (18 sets, daily range): BP systolic 107–138; BP diastolic 56–71; PULSE 94–114; RESP 20–22; TEMP 36.1–36.3; O2SAT 96–98; BMI 69.3
[2022-02-24 14:36] LABS: Hematocrit 31.8 % (37.0-47.0); Hemoglobin 9.8 g/dL (12.2-16.2)
== END 2022-02-24 14:30 | disposition home or self-care (01) ==
LOC: INF 08:23
PROVIDERS: PCP Internal Medicine; Visit Provider Internal Medicine
DX: D64.9 Anemia, unspecified (principal)
CPT/HCPCS: 36430; 85014; 85018; P9016

== ENCOUNTER → 2022-04-20 12:15 | Outpatient (CLI) | payer MEDICARE, BC, SELFPAY ==
[2022-04-20 15:33] LABS: Basophils # 0.1 K/mm3 (0-0.2); Basophils % 0.8 % (0.1-2.0); Eosinophils # 0.2 K/mm3 (0.0-0.4); Hematocrit 34.7 % (37.0-47.0); Hemoglobin 10.5 g/dL (12.2-16.2); Lymphocytes # 1.3 K/mm3 (0.7-4.5); Lymphocytes % 16.4 % (10-50); Mean Corpuscular HGB Conc 30.1 g/dL (31.8-35.4); Mean Corpuscular Hemoglobin 26.5 pg (27.0-31.2); Mean Corpuscular Volume 87.9 fl (81-99); Mean Platelet Volume 9.3 fl (7.4-10.4); Monocytes # 0.5 K/mm3 (0.1-1.0); Monocytes % 6.4 % (1.7-9.3); Neutrophils # 5.7 K/mm3 (1.8-7.8); Neutrophils % 73.4 % (37.0-80.0); Platelet Count 426 K/mm3 (142-424); Red Blood Count 3.95 M/mm3 (4.20-5.40); Red Cell Distribution Width 18.3 % (11.5-17.5); White Blood Count 7.7 K/mm3 (4.8-10.8)
[2022-04-20 16:32] LABS: Alanine Aminotransferase 15 U/L (12-78); Albumin Level 4.2 g/dl (3.5-5.0); Albumin/Globulin Ratio 1.5 (1.1-1.8); Alkaline Phosphatase 80 U/L (38-126); Aspartate Amino Transferase 24 U/L (14-36); Blood Urea Nitrogen 9 mg/dl (7-17); Calcium 9.6 mg/dl (8.4-10.2); Carbon Dioxide 33 mmol/L (22.0-30.0); Chloride 97 mmol/L (98-107); Estimated Glomerular Filt Rate 60 ml/min (>60); GFR (African American) 73 ML/MIN (>60); Globulin 2.8 g/dL (1.3-3.2); Glucose 87 mg/dl (74-100); Sodium 141 mmol/L (136-145)
[2022-04-20 16:52] LABS: Bilirubin,Total < 0.1 mg/dl (0.2-1.3)
[2022-04-20 17:01] LABS: Thyroid Stimulating Hormone 1.53 uIU/mL (0.465-4.68)
[2022-04-20 17:20] LABS: Vitamin B12 602 pg/mL (239-931)
[2022-04-20 18:47] LABS: Iron 77 ug/dL (37-170)
[2022-04-20 18:56] LABS: Total Iron Binding Capacity 359 ug/dL (265-497)
== END ==
PROVIDERS: PCP Internal Medicine; Visit Provider Internal Medicine
DX: E03.9 Hypothyroidism, unspecified (principal); R53.1 Weakness; D50.9 Iron deficiency anemia, unspecified; D64.9 Anemia, unspecified; J44.9 Chronic obstructive pulmonary disease, unspecified; F41.9 Anxiety disorder, unspecified
CPT/HCPCS: 80053; 82607; 83540; 83550; 84443; 85025

== ENCOUNTER 2022-06-21 12:14 | Observation (INO) | payer MEDICARE, BC, SELFPAY ==
[2022-06-21] VITALS (12 sets, daily range): BP systolic 101–162; BP diastolic 46–72; PULSE 70–93; RESP 16–22; TEMP 36.6–36.9; O2SAT 97–100; BMI 28.1; BMI 29.8
--- NOTE | 2022-06-21 12:16 | CT_ITS ---
FINAL REPORT CLINICAL HISTORY: r arm numbness r/o stroke FINDINGS: Axial images of the head were obtained without contrast. Coronal reformatted images were also obtained. This study was performed with techniques to keep radiation doses as low as reasonably achievable (ALARA). Individualized dose reduction techniques using automated exposure control or adjustment of mA and/or kV according to the patient's size were employed. There is generalized age-appropriate atrophy. Periventricular low-attenuation areas are seen consistent with moderate chronic ischemic changes. There is no evidence of intracranial hemorrhage or mass. There is no evidence of acute infarct. There is no evidence of shift of the midline structures. No skull abnormality is seen on the bone window images. There is partial opacification of the left sphenoid sinus. IMPRESSION: Atrophy and moderate periventricular chronic ischemic changes. No acute intracranial abnormality identified. Reviewed, Interpreted and Dictated by Allan Cid III, MD Transcribed by Daniel Preciado Authenticated and [facility]
--- NOTE | 2022-06-21 12:21 | XR_ITS ---
FINAL REPORT CLINICAL HISTORY: cva COMPARISON: January 2021 FINDINGS: The heart size is normal. The mediastinum is within normal limits. There is mild atelectasis or scarring in the right lung. There is no pleural effusion. There is no pneumothorax. The bony thorax is intact. IMPRESSION: Mild right lung atelectasis or scarring. Reviewed, Interpreted and Dictated by Allan Cid III, MD Transcribed by Daniel Preciado Authenticated and [facility]
--- NOTE | 2022-06-21 12:21 | PC.NURSE ---
1220- pt to ct
--- NOTE | 2022-06-21 12:22 | HMH.EDGENADL ---
Discharge Plan Disposition Patient Disposition: Admitted as Observation Condition: Good Prescriptions Prescriptions: No Action oxazepam 10 MG capsule 10 mg PO TID levothyroxine 100 MCG tablet 100 mcg PO DAILY levalbuterol HCl 1.25 MG/3 ML solution for nebulization 1.25 mg IH Q8H [id number]-qedkirhef-[id number] 1 EACH blister with device 1 puff IH DAILY roflumilast 250 MCG tablet 250 mcg PO DAILY Label Comments: TAKE ONE TABLET BY MOUTH EVERY DAY levofloxacin 500 MG tablet 500 mg PO DAILY Referrals Follow up/Referrals: Frank Marie MD [Primary Care Provider] - See instructions Clinical Impressions Clinical Impression: Transient cerebral ischemia Discharge ED Provider: Nate Onofre General Adult HPI General Chief complaint: Neuro Symptoms/Deficit Stated complaint: r arm numbness Time Seen by Provider: 06/21/22 12:15 Mode of Arrival: Wheelchair Source of Information: Patient and Spouse Limitations: No Limitations History of Present Illness HPI narrative: 82yo F presents to the ER from her PCP office secondary to potential stroke. Patient has a past medical history of respiratory failure with hypoxia, COPD, hypothyroidism and COVID-19. Patient reports she went to bed at 6 PM but was up and down several times throughout the night to use the restroom. Last trip to the restroom was approximately 5:00 in the morning and she states she had no neurologic deficit at that time. Denies previous history of stroke. Only complaint is her right upper extremity does not feel normal. Denies headache or visual acuity change. Related Data Home Medications Medication Instructions Recorded Confirmed fluticasone fur. 100 mcg-umeclid 1 puff IH DAILY COPD 02/03/21 02/24/22 62.5 mcg-vilant 25 mcg inhalat.powder levalbuterol HCl 1.25 mg/3 mL 1.25 mg IH Q8H Breathing problems 02/03/21 02/24/22 solution for nebulization levothyroxine 100 mcg tablet 100 mcg PO DAILY thyroid 02/03/21 02/24/22 oxazepam 10 mg capsule 10 mg PO TID Anxiety 02/03/21 02/24/22 roflumilast 250 mcg tablet 250 mcg PO DAILY COPD 02/03/21 02/24/22 levofloxacin 500 mg tablet 500 mg PO DAILY UTI 02/24/22 02/24/22 Allergies Allergy/AdvReac Type Severity Reaction Status Date / Time codeine [CODEINE] Allergy Mild Verified 02/03/21 11:51 Sulfa (Sulfonamide Allergy Mild Verified 02/03/21 11:51 Antibiotics) [SULFA (SULFONAMIDE ANTIBIOTICS)] [facility] Disclaimer: The information contained in this section may have been updated after the patient was seen, as this information can be updated by other users. Medical History Anxiety COPD (chronic obstructive pulmonary disease) History of COVID-19 Hypothyroidism Surgical History Hx of tubal ligation Family History Other No significant family history Social History Smoking Status: Former smoker alcohol intake: never current occupational status: retired Travel in the last 8 weeks: None household members: spouse housing: house marital status: education level: high school service: No jail: No caffeine: No ROS Obtained: Yes Systems reviewed as appropriate & no additional complaints except as documented Physical Exam General General appearance: alert and in no apparent distress Head Head exam: atraumatic, normocephalic and normal inspection Eye Eye exam: Present normal appearance, PERRL and EOMI; Absent scleral icterus, conjunctival redness or conjunctival injection Neck Neck exam: Present normal inspection and trachea midline Chest Chest inspection: Present normal inspection and symmetric chest wall rise Respiratory Respiratory exam: Present normal lung sounds bilaterally; Absen
--- NOTE | 2022-06-21 12:32 | PC.NURSE ---
pt return from ct, pt requesting to stay in wheelchair at this time
[2022-06-21 13:06] LABS: Basophils # 0.1 K/mm3 (0-0.2); Basophils % 0.6 % (0.1-2.0); Eosinophils # 0.2 K/mm3 (0.0-0.4); Eosinophils % 1.8 % (0.1-12.0); Hematocrit 32.8 % (37.0-47.0); Hemoglobin 10.7 g/dL (12.2-16.2); Lymphocytes # 1.2 K/mm3 (0.7-4.5); Lymphocytes % 14.2 % (10-50); Mean Corpuscular HGB Conc 32.6 g/dL (31.8-35.4); Mean Corpuscular Hemoglobin 29.1 pg (27.0-31.2); Mean Corpuscular Volume 89.2 fl (81-99); Monocytes # 0.5 K/mm3 (0.1-1.0); Monocytes % 5.6 % (1.7-9.3); Neutrophils # 6.6 K/mm3 (1.8-7.8); Neutrophils % 77.7 % (37.0-80.0); Platelet Count 411 K/mm3 (142-424); Red Blood Count 3.68 M/mm3 (4.20-5.40); Red Cell Distribution Width 14.8 % (11.5-17.5); White Blood Count 8.4 K/mm3 (4.8-10.8)
[2022-06-21 13:21] LABS: Chloride 101 mmol/L (98-107); Potassium 4.4 mmoL/L (3.5-5.1); Sodium 140 mmol/L (136-145)
[2022-06-21 13:22] LABS: INR 0.93 (0.9-1.1); Prothrombin Time 10.1 seconds (10.1-12.5)
[2022-06-21 13:23] LABS: Blood Urea Nitrogen 16 mg/dl (7-17); Creatinine Clearance Estimated 58 mL/min (50-200); Estimated Glomerular Filt Rate 60 ml/min (>60); GFR (African American) 73 ML/MIN (>60)
[2022-06-21 13:24] LABS: Alanine Aminotransferase 17 U/L (12-78); Albumin Level 4.3 g/dl (3.5-5.0); Albumin/Globulin Ratio 1.3 (1.1-1.8); Alkaline Phosphatase 76 U/L (38-126); Anion Gap 10.4 mEq/L (5-15); Aspartate Amino Transferase 28 U/L (14-36); Bilirubin,Total 0.2 mg/dl (0.2-1.3); Calcium 9.1 mg/dl (8.4-10.2); Carbon Dioxide 33 mmol/L (22.0-30.0); Globulin 3.3 g/dL (1.3-3.2); Glucose 94 mg/dl (74-100); Total Protein,Serum 7.6 g/dl (6.3-8.2)
--- NOTE | 2022-06-21 13:26 | ECG_ITS ---
APPROVED REPORT Exam: Resting ECG HR:79 bpm ECG Measurements Heart Rate 79 AXES CO 131 P 56 QRSd 86 QRS 76 QT 380 T 70 QTc 415 Conclusion SINUS RHYTHM NORMAL ECG UNCONFIRMED REPORT Electronically signed by : Yobany Cabrera MD 06/21/2022 19:21:38
--- NOTE | 2022-06-21 14:54 | PC.NURSE ---
notified care management of admission, spoke with connie
--- NOTE | 2022-06-21 14:55 | PC.NURSE ---
per lab staff pt covid swab is the next in line to go on the analyzer
[2022-06-21 15:03] LABS: Coronavirus 19, PCR Not Detected (NotDetected); Influenza A, PCR Not Detected (NotDetected); Influenza B, PCR Not Detected (NotDetected); Microscopic, Urine URINE MICROSCOPIC (MICROSCOPIC)
[2022-06-21 15:09] LABS: Appearance,Urine CLEAR (Clear); Bilirubin,Urine Negative (Negative); Blood, Urine TRACE-I (Negative); Color,Urine YELLOW (Yellow); Glucose,Urine (UA) Negative (Negative); Ketones,Urine TRACE (Negative); Leukocyte Esterase,Urine 1+ (Negative); Nitrate,Urine POSITIVE (Negative); Protein,Urine Negative (Negative); Specific Gravity, Urine 1.025 (1.005-1.030); Urobilinogen,Urine 0.2 EU/dl (0.2)
--- NOTE | 2022-06-21 15:39 | PC.NURSE ---
attempted to call report to second floor, waiting region manager back
[2022-06-21 15:40] LABS: Bacteria,Urine 3+ /lpf; RBC,Urine Occasional #/hpf (0-3)
--- NOTE | 2022-06-21 16:00 | PC.NURSE ---
report called to adrianarn
--- NOTE | 2022-06-21 16:16 | PC.NURSE ---
arrived to floor by wheelchair from ED
--- NOTE | 2022-06-21 17:11 | ECG_ITS ---
APPROVED REPORT Exam: Resting ECG HR:87 bpm ECG Measurements Heart Rate 87 AXES TX 148 P 71 QRSd 86 QRS 86 QT 365 T 80 QTc 410 Conclusion SINUS RHYTHM MINIMAL ST DEPRESSION [0.025+ mV ST DEPRESSION] BORDERLINE ECG UNCONFIRMED REPORT Electronically signed by : Yobany Cabrera MD 06/22/2022 10:18:20
--- NOTE | 2022-06-21 17:29 | EXP.HP ---
History of Present Illness *Admission Date: 06/21/22 *Reason for visit:: Arm numbness/TIA *History of present illness: 82yo F presents to the ER from her PCP office secondary to potential stroke. Patient has a past medical history of respiratory failure with hypoxia, COPD, hypothyroidism and COVID-19. Patient reports she went to bed at 6 PM but was up and down several times throughout the night to use the restroom. Last trip to the restroom was approximately 5:00 in the morning and she states she had no neurologic deficit at that time. Arm abnormalities present for approximately 8 hours before spontaneously resolving. On arrival to the emergency department she had mild symptoms but rapidly resolving and upon MD evaluation all symptoms have resolved. Currently she is asymptomatic and has no acute complaints. She denies any shortness of breath, palpitations. She has no lower extremity edema or swelling. Discussed plan for admission involving work-up for etiology of TIA, patient is agreeable. All questions were answered [facility] Disclaimer: The information contained in this section may have been updated after the patient was seen, as this information can be updated by other users. Medical History Anxiety COPD (chronic obstructive pulmonary disease) History of COVID-19 Hypothyroidism Surgical History Hx of tubal ligation Family History Other No significant family history Social History Smoking Status: Former smoker alcohol intake: never current occupational status: retired Travel in the last 8 weeks: None household members: spouse housing: house marital status: education level: high school service: No care home: No caffeine: No Review of Systems Review of Systems Review of systems:: pertinent systems reviewed and negative unless documented below Constitutional Constitutional: Reports system reviewed and no additional complaints, except as documented, Denies chills and Reports weakness Eyes Eyes: Reports system reviewed and no additional complaints, except as documented ENT Ears, Nose, Mouth, and Throat: Reports system reviewed and no additional complaints, except as documented and Denies disequilibrium *Cardiovascular Cardiovascular: Denies chest pain and Reports dyspnea *Respiratory Respiratory: Reports cough and Reports dyspnea *Gastrointestinal Gastrointestinal: Reports system reviewed and no additional complaints, except as documented *Genitourinary Genitourinary: Reports system reviewed and no additional complaints, except as documented *Musculoskeletal Musculoskeletal: Denies arthralgias, Denies joint swelling, Reports numbness and Reports tingling *Neurologic Neurologic: Reports system reviewed and no additional complaints, except as documented, Denies abnormal movements, Denies abnormal speech, Denies disequilibrium, Reports numbness, Reports tingling and Reports weakness Psychiatric Psychiatric: Reports system reviewed and no additional complaints, except as documented Hematologic/Lymphatic Hematologic/Lymphatic: Reports system reviewed and no additional complaints, except as documented Meds Home Medications and Allergies Home Medications Medication Instructions Recorded Confirmed Type fluticasone fur. 100 mcg-umeclid 1 puff IH DAILY COPD 02/03/21 02/24/22 History 62.5 mcg-vilant 25 mcg inhalat.powder levalbuterol HCl 1.25 mg/3 mL 1.25 mg IH Q8H Breathing problems 02/03/21 02/24/22 History solution for nebulization levothyroxine 100 mcg tablet 100 mcg PO DAILY thyroid 02/03/21 02/24/22 History oxazepam 10 mg capsule 10 mg PO TID Anxiety 02/03/21 02/24/22 History roflumilast 250 mcg tablet 250 mcg PO DAILY COPD 02/03/21 02/24/22 History lev
[2022-06-21 17:59] LABS: Thyroid Stimulating Hormone 1.71 uIU/mL (0.465-4.68)
[2022-06-21 18:26] LABS: NT Pro Brain Natriuretic Pep. 50.4 pg/mL (0-450)
--- NOTE | 2022-06-21 18:26 | PC.NURSE ---
Pt assessment completed upon arrival. Pt able to complete assessment without issues. No facial droop or arm drift noted. [employer] strength and pedal pushes were both normal. Pts speech is normal and pt. is alert and oriented x4. Pt. does complain of shortness of breath, she is on 3L NC baseline and is maintaining an O2 sat of >95%.
--- NOTE | 2022-06-21 18:30 | PC.NURSE ---
Pt. was unable to complete MRI due to not being able to lay flat. Jesus Berumen MD notified.
[2022-06-22] VITALS (7 sets, daily range): BP systolic 142–178; BP diastolic 52–72; PULSE 80–120; RESP 17–19; TEMP 36.4–36.6; O2SAT 98–100; BMI 29.8
--- NOTE | 2022-06-22 02:33 | PC.NURSE ---
Pt in bed resting at this time, daughter at bedside. Pt has been up to restroom with standby assist, tolerated well. Reports the strength in right upper extremity is good. States she does not know why she lost strength in in, but it's restored. Pt has been on 3L 02 all shift, anxiety reported. Pt has been given prn anxiety medication. Has shortness of air when ambulating. Lungs where clear but diminished, resp even and non labored at rest. IV is patent. Pt educated on Plan of care and medications, bed locked in low position, side rails up x 2, call light in reach.
[2022-06-22 07:26] LABS: Basophils % 0.6 % (0.1-2.0); Eosinophils # 0.2 K/mm3 (0.0-0.4); Hemoglobin 10.7 g/dL (12.2-16.2); Lymphocytes # 1.4 K/mm3 (0.7-4.5); Lymphocytes % 22.8 % (10-50); Mean Corpuscular HGB Conc 31.5 g/dL (31.8-35.4); Mean Corpuscular Hemoglobin 28.4 pg (27.0-31.2); Mean Corpuscular Volume 90.1 fl (81-99); Mean Platelet Volume 8.3 fl (7.4-10.4); Monocytes # 0.4 K/mm3 (0.1-1.0); Monocytes % 6.8 % (1.7-9.3); Neutrophils # 3.9 K/mm3 (1.8-7.8); Neutrophils % 65.8 % (37.0-80.0); Platelet Count 344 K/mm3 (142-424); Red Blood Count 3.77 M/mm3 (4.20-5.40); Red Cell Distribution Width 14.7 % (11.5-17.5)
[2022-06-22 08:00] LABS: Chloride 104 mmol/L (98-107); Potassium 3.9 mmoL/L (3.5-5.1); Sodium 142 mmol/L (136-145)
[2022-06-22 08:02] LABS: Alanine Aminotransferase 16 U/L (12-78); Aspartate Amino Transferase 24 U/L (14-36); Blood Urea Nitrogen 15 mg/dl (7-17); Creatinine Clearance Estimated 61 mL/min (50-200); Estimated Glomerular Filt Rate 53 ml/min (>60); GFR (African American) 65 ML/MIN (>60)
[2022-06-22 08:03] LABS: Albumin Level 3.9 g/dl (3.5-5.0); Albumin/Globulin Ratio 1.3 (1.1-1.8); Alkaline Phosphatase 64 U/L (38-126); Anion Gap 8.9 mEq/L (5-15); Bilirubin,Total 0.2 mg/dl (0.2-1.3); Calcium 8.9 mg/dl (8.4-10.2); Carbon Dioxide 33 mmol/L (22.0-30.0); Glucose 102 mg/dl (74-100); Magnesium 1.9 mg/dl (1.6-2.3); Phosphorous 3.5 mg/dl (2.5-4.5); Total Protein,Serum 6.9 g/dl (6.3-8.2)
--- NOTE | 2022-06-22 10:31 | HMH.OTEV ---
OT Inpatient Evaluation Rehab OT IP Evaluation Start: 06/21/22 16:58 Freq: ONCE Status: Active Protocol: Document 06/22/22 10:00 MICHAEL (Rec: 06/22/22 10:30 [facility] [id number]) Rehab OT IP Assessment Subjective History Pt oriented x 3 on arrival. Pt agreeable to engage in therapy evaluation. Pt was admitted on 06/21/22 due to arm numbness/TIA. Prior to being in the hospital, pt lived at home with her . Pt reports she was independent with all ADLs such as dressing , bathing, and feeding. Pt reports she was dependent upon her for completion of IADLs such as cooking, grocery shopping, and laundry. She also has a cleaning lady come weekly. She does not use a walker or cane during ambulation. She is on oxygen at all times. Pt has a past medical history of: Anxiety COPD (chronic obstructive pulmonary disease) History of COVID-19 Hypothyroidism Subjective I am ready to go home and get some rest. Objective Patient Orientation Person,Place,Birthday Upper Extremity Gross ROM WFL Bed Mobility bed mobility-scooting,bed mobility - supine/sit,bed mobility - rolling Assist Level Supervision/Stand by Transfer Training Sit/Stand Transfer Assist Level Supervision/Stand by Chair Transfer Ability Supervision/Stand by Chair Transfer Technique Sit to/from Ambulatory Chair Transfer Assistive Devices None Lower Body Dressing Ability Standby Assistance Rehab OT IP prob,goals,plan Problems Date of Evaluation: 06/22/22 Rehab Potential Rehab Potential Innapropriate for Skilled Therapy Discharge Plan OT Discharge Plan At this time, pt appears to be at baseline with all ADLs and functional transfers. Her symptoms of RUE weakness have resolved.
--- NOTE | 2022-06-22 11:03 | HMH.PTEV ---
Physical Therapy Evaluation Rehab PT IP Evaluation Start: 06/21/22 16:58 Freq: .once Status: Active Protocol: Document 06/22/22 09:00 BLAKE (Rec: 06/22/22 11:03 BLAKE [id number]) Subjective/History History History 82 yowf adm to [facility] with possible TIA, symptoms all now resolved. She reports she lives with spouse, 1-2 steps to enter the home, She is generally independent with all mobility without an AD, but does use oxygen via NC at all times due to COPD. Subjective Subjective Pt with no c/o this am other than feeling tired. Rehab PT IP Eval Objective Appearance Patient Behavior Appropriate Patient Orientation Person,Place,Time Difficulty following instructions none Speech Pattern Clear Ambulation Patient Able to Ambulate Yes Ambulation Observation IP General Gait Pattern Observation Wide Based Gait Ambulation Distance (feet) 20 Ambulation Assistive Device None Ambulation Ability Supervision/Stand by Balance Ability to Arise Able, uses arms to help Sitting Balance Steady, safe Standing Balance Steady, wide stance Dynamic Sitting Balance Ability Good Dynamic Standing Balance Ability Good Transfers Bed Transfer Ability Supervision/Stand by Chair Transfer Ability Supervision/Stand by Sit to Stand Bed Transfer Ability Supervision/Stand by Sit to Stand Chair Transfer Ability Supervision/Stand by ROM All Extremities PT ROM Status WFL MMT All Extremities PT MMT WFL Rehab PT IP prob,goals,plan Problems Date of Evaluation: 06/22/22 Discharge Plan PT Discharge Plan Pt is currently at baseline for all mobility, UE and LE strength WNL. She is appropriate to return home once medically stable for d/c. G -code Required No Eval Complexity Eval Charge Codes 86488 - Moderate Complexity PHYSICIAN CERTIFICATION: I certify the specified therapy services for Beba Casper are required, authorized, and reviewed every 30 days.
--- NOTE | 2022-06-22 11:20 | EXP.DC.SUM ---
General Admission date:: 06/21/22 Discharge date: 06/22/22 HPI HPI HPI: 82yo F presents to the ER from her PCP office secondary to potential stroke. Patient has a past medical history of respiratory failure with hypoxia, COPD, hypothyroidism and COVID-19. Patient reports she went to bed at 6 PM but was up and down several times throughout the night to use the restroom. Last trip to the restroom was approximately 5:00 in the morning and she states she had no neurologic deficit at that time. Arm abnormalities present for approximately 8 hours before spontaneously resolving. On arrival to the emergency department she had mild symptoms but rapidly resolving and upon MD evaluation all symptoms have resolved. Currently she is asymptomatic and has no acute complaints. She denies any shortness of breath, palpitations. She has no lower extremity edema or swelling. Discussed plan for admission involving work-up for etiology of TIA, patient is agreeable. All questions were answered Hospital Course Hospital Course Hospital Course: 82-year-old female with COPD presenting with right upper extremity paresthesias and weakness.? Symptom onset approximately 8 hours with spontaneous resolution.? Symptoms most consistent with TIA.? Monitored overnight with resolution of symptoms. Work-up and problems addressed as follows. TIA -Admitted for observation. Symptoms resolved very quickly during admission. CT of head obtained with the following finding: Atrophy and moderate periventricular chronic ischemic changes. No acute intracranial abnormality identified.. Deferred further work-up including carotid duplex, consideration for MRI, and repeat echo (last obtained in 2018 with no abnormalities identified) to outpatient setting. Patient initiated on aspirin, Plavix. Recommend continuing for 90 days. PT and OT evaluated, patient at baseline level of function. Stable to discharge home with close follow-up with PCP. Additionally was noted to have UTI on urine obtained on admission. Started on empiric antibiotics. Urine culture positive for E. coli, sensitive to cephalosporins. Plan to complete 7-day course. Hypothyroidism -TSH 1.7, controlled on current regimen. Continue home dose of Synthroid COPD-continue home inhalers, stable on home baseline oxygen Anxiety-continue home oxazepam Exam Data for Last 24 hours Vital signs and Labs for Last 24 Hours: Temp Pulse Resp BP Pulse Ox 97.6 F 120 H 17 142/64 H 100 06/22/22 08:00 06/22/22 08:00 06/22/22 08:00 06/22/22 08:00 06/22/22 08:50 Laboratory Results - last 24 hr 06/21/22 12:45: WBC 8.4, RBC 3.68 L, Hgb 10.7 L, Hct 32.8 L, MCV 89.2, MCH 29.1, MCHC 32.6, RDW 14.8, Plt Count 411, MPV 8.0, Neut % (Auto) 77.7, Lymph % (Auto) 14.2, [place] % (Auto) 5.6, Eos % (Auto) 1.8, Baso % (Auto) 0.6, Neut # (Auto) 6.6, Lymph # (Auto) 1.2, [place] # (Auto) 0.5, Eos # (Auto) 0.2, Baso # (Auto) 0.1 06/21/22 12:45: PT 10.1, INR 0.93 06/21/22 12:45: Sodium 140, Potassium 4.4, Chloride 101, Carbon Dioxide 33 H, Anion Gap 10.4, BUN 16, Creatinine 0.90, Estimated Creat Clear 58, Estimated GFR 60, Est GFR ( Amer) 73, Glucose 94, Calcium 9.1, Total Bilirubin 0.2, AST 28, ALT 17, Alkaline Phosphatase 76, Total Protein 7.6, Albumin 4.3, Globulin 3.3 H, Albumin/Globulin Ratio 1.3 06/21/22 12:45: TSH 1.71 06/21/22 12:45: NT-Pro-B Natriuret Pep 50.4 06/21/22 14:23: Urine Color Yellow, Urine Appearance Clear, Urine pH 6.0, Ur Specific [place] 1.025, Urine Protein Negative, Urine Glucose (UA) Negative, Urine Ketones Trace, Urine Blood Trace-i, Urine Nitrate Positive, Urine Bilirubin Negative, Urine Urobilinogen 0.2, Ur Leukocyte Esterase 1+ A, Urine RBC Occasional, Urine WBC 5-10, Ur Squamous Epith Cells 3-5, Urine Bacteria 3+ 06/21/22 14:23: SARS-CoV-2 (PCR) Not detected, Influenza A Untype (PCR) Not detected, Influenza Type B (PCR) Not detected 06/22/22 06:55: WBC 6.0 D, RBC 3.77 L, Hgb 10.7 L, Hct 34.0 L, MCV 90.1, MCH 28
--- NOTE | 2022-06-22 11:48 | PC.NURSE ---
Dr. Larose aware of patient's tachycardia with exertion
--- NOTE | 2022-06-22 13:16 | P.CONPHA_ITS ---
Pharmacy Intervention Comments: Met with patient and at bedside to supervisor counseling and guidance on discharge medications. Discussed NEW and continued medications, indications, and possible adverse effects/mitigation strategies. Patient and family verbalized understanding of information provided and had no questions or concerns at this time. -Amy Cosme, PharmD Candidate 2022
--- NOTE | 2022-06-23 13:35 | EXP.EVENT.NO ---
Urine culture returned resistant to fluoroquinolones. Sensitive to cephalosporins. New prescription sent, patient informed. Spoke to her Jorge
== END 2022-06-22 12:55 | disposition home or self-care (01) ==
LOC: ER 14:50 → 2ND 15:18
PROVIDERS: Student in an Organized Health Care Education/Training Program; Admitting Provider Internal Medicine Adolescent Medicine; Emergency Provider Family Medicine; PCP Internal Medicine; Visit Provider Internal Medicine Adolescent Medicine
DX: G45.9 Transient cerebral ischemic attack, unspecified (principal); E03.9 Hypothyroidism, unspecified; F41.9 Anxiety disorder, unspecified; J96.11 Chronic respiratory failure with hypoxia; J44.9 Chronic obstructive pulmonary disease, unspecified; Z86.16 Personal history of COVID-19; N39.0 Urinary tract infection, site not specified; Z79.899 Other long term (current) drug therapy; R06.9 Unspecified abnormalities of breathing; Z20.822 Contact with and (suspected) exposure to COVID-19
CPT/HCPCS: G0378; 36415; 70450; 71045; 80053; 81001; 83735; 83880; 84100; 84443; 85025; 85610; 87086; 87088; 87186; 93005; 93306; 93880; 94640; 94761; 97162; 97165; 99291; C9803; J0696; U0003; U0005

== ENCOUNTER 2022-07-15 14:19 | Observation (INO) | payer MEDICARE, BC, SELFPAY ==
[2022-07-15] VITALS (38 sets, daily range): BP systolic 100–151; BP diastolic 37–105; PULSE 80–146; RESP 14–33; TEMP 36.7–37.3; O2SAT 82–100; BMI 28.1
[2022-07-15 14:50] LABS: Basophils % 0.4 % (0.1-2.0); Eosinophils # 0.2 K/mm3 (0.0-0.4); Eosinophils % 2.8 % (0.1-12.0); Hematocrit 22.5 % (37.0-47.0); Lymphocytes # 1.1 K/mm3 (0.7-4.5); Lymphocytes % 13.7 % (10-50); Mean Corpuscular HGB Conc 30.7 g/dL (31.8-35.4); Mean Corpuscular Hemoglobin 27.5 pg (27.0-31.2); Mean Corpuscular Volume 89.6 fl (81-99); Mean Platelet Volume 8.8 fl (7.4-10.4); Monocytes # 0.3 K/mm3 (0.1-1.0); Monocytes % 4.1 % (1.7-9.3); Neutrophils # 6.1 K/mm3 (1.8-7.8); Neutrophils % 78.9 % (37.0-80.0); Platelet Count 412 K/mm3 (142-424); Red Blood Count 2.51 M/mm3 (4.20-5.40); Red Cell Distribution Width 15.2 % (11.5-17.5); White Blood Count 7.8 K/mm3 (4.8-10.8)
[2022-07-15 14:53] LABS: Hemoglobin 6.9 g/dL (12.2-16.2)
--- NOTE | 2022-07-15 14:53 | PC.NURSE ---
LAB CALLED WITH CRITICAL HGB 6.[address] DR ACHARYA NOTIFIED
[2022-07-15 14:54] LABS: Chloride 106 mmol/L (98-107); Potassium 3.7 mmoL/L (3.5-5.1); Sodium 143 mmol/L (136-145)
--- NOTE | 2022-07-15 14:56 | ECG_ITS ---
APPROVED REPORT Exam: Resting ECG HR:80 bpm ECG Measurements Heart Rate 80 AXES IN 138 P 85 QRSd 90 QRS 83 QT 389 T 78 QTc 424 Conclusion SINUS RHYTHM WITH OCCASIONAL SUPRAVENTRICULAR PREMATURE COMPLEXES MODERATE ST DEPRESSION [0.05+ mV ST DEPRESSION] ABNORMAL ECG UNCONFIRMED REPORT Electronically signed by : Yobany Cabrera MD 07/16/2022 20:57:13
[2022-07-15 14:57] LABS: Alanine Aminotransferase 15 U/L (12-78); Albumin Level 3.8 g/dl (3.5-5.0); Albumin/Globulin Ratio 1.3 (1.1-1.8); Alkaline Phosphatase 65 U/L (38-126); Anion Gap 8.7 mEq/L (5-15); Aspartate Amino Transferase 23 U/L (14-36); Bilirubin,Total 0.2 mg/dl (0.2-1.3); Blood Urea Nitrogen 16 mg/dl (7-17); Carbon Dioxide 32 mmol/L (22.0-30.0); Creatinine Clearance Estimated 58 mL/min (50-200); Estimated Glomerular Filt Rate 53 ml/min (>60); GFR (African American) 65 ML/MIN (>60); Globulin 2.9 g/dL (1.3-3.2); Total Protein,Serum 6.7 g/dl (6.3-8.2)
[2022-07-15 14:58] LABS: Calcium 8.6 mg/dl (8.4-10.2); Glucose 145 mg/dl (74-100)
--- NOTE | 2022-07-15 15:01 | HMH.EDGENADL ---
Discharge Plan Disposition Patient Disposition: Admitted As Inpatient Condition: Serious Clinical Impressions Clinical Impression: Anemia, Sinus tachycardia, Hypoxemia Discharge ED Provider: Brent Gonzáles General Adult HPI General Chief complaint: Recheck/Abnormal Lab/Rx Stated complaint: Needs blood phys ref Time Seen by Provider: 07/15/22 14:53 Mode of Arrival: Wheelchair Source of Information: Patient Limitations: No Limitations Description of Symptoms (Recalled from ER Triage Doc. by RN): pt to ed c/o abnormal labs. pt tates she was at pcp office today for generalized illness and states they tran blood and her hbg was critically low. pt states she had a recent hospitalization for anemia. History of Present Illness HPI narrative: The patient is sent in by Bran Rose, VERONICA. states that for the past several days she has been extremely weak. Yesterday evening she had an episode of extreme weakness with high heart rate. Today in the office she was found to have a critically low hemoglobin and was sent here for treatment. states that she was found to be anemic about 3 months ago. She was given a blood transfusion as an outpatient. He says that the cause of her anemia is unknown. She has not seen a tube builder airplane. She has never had colonoscopy or EGD. She has never been discovered to have blood in her stool. She has been on iron. Her stool was dark since she has started the iron. She has had no hematemesis. She denies any pain, no chest pain or syncope. Denies shortness of breath. Patient also states that she recently has had a urinary tract infection for which she has been treated. She says that a urine analysis was done and primary care provider's office today and she was told she still has a UTI. Upon arrival here she became weak and diaphoretic and tachycardic, pulse ox reading low. She has COPD and is on oxygen at home, 3 L. Denies chest pain, shortness of breath, abdominal pain. Related Data Home Medications Medication Instructions Recorded Confirmed fluticasone fur. 100 mcg-umeclid 1 puff IH DAILY COPD 02/03/21 02/24/22 62.5 mcg-vilant 25 mcg inhalat.powder levalbuterol HCl 1.25 mg/3 mL 1.25 mg IH Q8H Breathing problems 02/03/21 02/24/22 solution for nebulization levothyroxine 100 mcg tablet 100 mcg PO DAILY thyroid 02/03/21 02/24/22 oxazepam 10 mg capsule 10 mg PO TID Anxiety 02/03/21 02/24/22 roflumilast 250 mcg tablet 250 mcg PO DAILY COPD 02/03/21 02/24/22 Previous Rx's Medication Instructions Recorded aspirin 81 mg chewable tablet 81 mg PO DAILY 30 days #30 tabs 06/22/22 clopidogrel 75 mg tablet 75 mg PO DAILY 30 days #30 tabs 06/22/22 levofloxacin 500 mg tablet 500 mg PO DAILY UTI 5 days #5 tabs 06/22/22 cefdinir 300 mg capsule 300 mg PO Q12H 7 days #14 caps 06/23/22 Allergies Allergy/AdvReac Type Severity Reaction Status Date / Time codeine [CODEINE] Allergy Mild Verified 02/03/21 11:51 Sulfa (Sulfonamide Allergy Mild Verified 02/03/21 11:51 Antibiotics) [SULFA (SULFONAMIDE ANTIBIOTICS)] [facility] Disclaimer: The information contained in this section may have been updated after the patient was seen, as this information can be updated by other users. Medical History Anxiety COPD (chronic obstructive pulmonary disease) History of COVID-19 Hypothyroidism Surgical History Hx of tubal ligation Family History Other No significant family history Social History Smoking Status: Never smoker alcohol intake: never current occupational status: retired Travel in the last 8 weeks: None household members: spouse housing: house marital status: education level: high school service: No long term:
--- NOTE | 2022-07-15 15:07 | XR_ITS ---
FINAL REPORT CLINICAL HISTORY: low pulse ox COMPARISON: 06/21/2022 FINDINGS: A single portable view of the chest was obtained. The heart size and pulmonary vascularity are within normal limits. The mediastinum is within normal limits. No acute pulmonary abnormality is identified. The bony thorax is intact. IMPRESSION: No active cardiopulmonary disease. Reviewed, Interpreted and Dictated by Allan Cid III, MD Transcribed by Sarah Lizama Authenticated and [facility]
[2022-07-15 15:28] LABS: NT Pro Brain Natriuretic Pep. 139 pg/mL (0-450)
[2022-07-15 15:32] LABS: Troponin I < 0.01 ng/ml (0.00-0.034)
[2022-07-15 15:46] LABS: ABG Base Excess 4.3 mmol/L (-2.4-2.3); ABG HCO3 28.7 mmhg (22.0-26.0); ABG Oxygen Saturation 84 % (90-100); ABG PCO2 44.5 mmhg (35.0-45.0); ABG PH 7.43 mmol/L (7.35-7.45)
[2022-07-15 15:52] LABS: Allen's Test ACCEPTABLE; Oxygen 3 LPM %; Source Left Radial
[2022-07-15 15:53] LABS: ABG PO2 48.6 mmhg (80-100)
[2022-07-15 16:16] LABS: Occult Blood,Stool Negative (Negative)
--- NOTE | 2022-07-15 16:35 | ECG_ITS ---
APPROVED REPORT Exam: Resting ECG HR:134 bpm ECG Measurements Heart Rate 134 AXES SC 164 P 87 QRSd 80 QRS 76 QT 370 T 42 QTc 449 Conclusion SINUS TACHYCARDIA NONSPECIFIC ST & T-WAVE ABNORMALITY ABNORMAL RHYTHM ECG UNCONFIRMED REPORT Electronically signed by : Yobany Cabrera MD 07/16/2022 20:56:56
--- NOTE | 2022-07-15 17:05 | PC.NURSE ---
First unit of cross-matched PRBCs initiated transfusion with dual sign-on off, consent obtained, at 50mL/hr, see vitals
[2022-07-15 17:54] LABS: Lactic Acid 1.2 mmol/L (0.7-2.1)
[2022-07-15 18:10] LABS: Troponin I < 0.01 ng/ml (0.00-0.034)
[2022-07-15 18:14] LABS: Microscopic, Urine URINE MICROSCOPIC (MICROSCOPIC)
[2022-07-15 18:15] LABS: Appearance,Urine CLEAR (Clear); Bilirubin,Urine Negative (Negative); Blood, Urine Negative (Negative); Color,Urine YELLOW (Yellow); Glucose,Urine (UA) Negative (Negative); Ketones,Urine Negative (Negative); Leukocyte Esterase,Urine Negative (Negative); Nitrate,Urine Negative (Negative); Protein,Urine Negative (Negative); Urobilinogen,Urine 0.2 EU/dl (0.2)
[2022-07-15 18:44] LABS: Squamous Epithelial Cell,Urine Occasional #/hpf (0-5); WBC,Urine Occasional #/hpf (0-3)
--- NOTE | 2022-07-15 19:10 | PC.NURSE ---
DR ACHARYA SPEAKING WITH [facility] FOR ADMISSION
--- NOTE | 2022-07-15 19:18 | PC.NURSE ---
HOUSE CALLED FOR ADMISSION
[2022-07-15 19:24] LABS: Coronavirus 19, PCR Not Detected (NotDetected); Influenza A, PCR Not Detected (NotDetected); Influenza B, PCR Not Detected (NotDetected)
--- NOTE | 2022-07-15 20:12 | PC.NURSE ---
RESP CALLED TO COME AND TRY TO TITRATE O2 DOWN
--- NOTE | 2022-07-15 20:52 | EXP.HP ---
History of Present Illness *Admission Date: 07/15/22 *Reason for visit:: Weakness, Tachycardia *History of present illness: Ms. Casper is a 82-year old female who [facility] after seeing her PCP and informed that she had critical labs. She reports weakness and increased HR over the previous 3 days to arrival. In the ER Hemoglobin was found to be 6.9, she was tachycardic with a rate in the 130's, EKG showed Sinus Tachycardia. She was also noted to be hypoxic with oxygen levels in the 80's on room air. She is not home oxygen dependent. The patient reports that she was hospitalized around 3 months ago for anemia and required transfusions. She has been on iron supplementation and reports dark colored stools since being placed on iron. She denies ever having a colonoscopy and denies ever seeing a optoelectronic technician. The patient will be admitted with initial impression: Anemia, Hypoxia and Tachycardia. Surgery will be consulted to see the patient. She will be transfused with 2 units of prbc's. Occult stool will be ordered. She will be placed on oxygen therapy to keep oxygen saturations 92% or greater. The plan of care was discussed with the patient and her in the ER on admission. Both verbalized understanding and agreement with the plan of care. [facility] Disclaimer: The information contained in this section may have been updated after the patient was seen, as this information can be updated by other users. Medical History Anxiety COPD (chronic obstructive pulmonary disease) History of COVID-19 Hypothyroidism Surgical History Hx of tubal ligation Family History Other No significant family history Social History Smoking Status: Never smoker alcohol intake: never current occupational status: retired Travel in the last 8 weeks: None household members: spouse housing: house marital status: education level: high school service: No [place] [facility]: No caffeine: No Review of Systems Review of Systems Review of systems:: pertinent systems reviewed and negative unless documented below Constitutional Constitutional: Denies headache(s) and Reports weakness Eyes Eyes: Reports system reviewed and no additional complaints, except as documented ENT Ears, Nose, Mouth, and Throat: Reports system reviewed and no additional complaints, except as documented and Denies headache(s) *Cardiovascular Cardiovascular: Reports dyspnea and Reports rapid heart rate *Respiratory Respiratory: Reports dyspnea *Gastrointestinal Gastrointestinal: Reports system reviewed and no additional complaints, except as documented *Genitourinary Genitourinary: Reports system reviewed and no additional complaints, except as documented *Musculoskeletal Musculoskeletal: Reports system reviewed and no additional complaints, except as documented and Denies numbness Integumentary/Breasts Skin/Breast: Reports system reviewed and no additional complaints, except as documented *Neurologic Neurologic: Denies headache(s), Denies numbness and Reports weakness Psychiatric Psychiatric: Reports system reviewed and no additional complaints, except as documented Endocrine Endocrine: Reports system reviewed and no additional complaints, except as documented Hematologic/Lymphatic Hematologic/Lymphatic: Reports system reviewed and no additional complaints, except as documented Allergic/Immunologic Allergic/Immunologic: Reports system reviewed and no additional complaints, except as documented Meds Home Medications and Allergies Home Medications Medication Instructions Recorded Confirmed Type fluticasone fur. 100 mcg-umeclid 1 puff IH DAILY COPD 02/03/21 07/16/22 History 62.5 mcg-vilant 25 mcg inh
--- NOTE | 2022-07-15 21:20 | PC.NURSE ---
Pt arrived to floor via stretcher @ 2058.
[2022-07-15 22:13] LABS: Troponin I < 0.01 ng/ml (0.00-0.034)
--- NOTE | 2022-07-15 22:21 | PC.NURSE ---
Pt O2 Sats > 95% on venti mask 35% fio2. Pt placed on 3L NC, tolerating well with o2 sat 94-95%. Pt states she is on 3L NC at home full-time. Pt reports she used to take 3 iron pills/day and now merlyn takes one/day. Dose unverified. Pt also reports she started to feel bad a few days ago and stopped taking Plavix at that time but took Plavix last night. Abdomen soft and non-tender on palpation. Med Rec completed to best of my ability, pt does not have med list with her.
[2022-07-16] VITALS: PULSE 70
[2022-07-16 00:25] VITALS: BP 112/46; PULSE 91; RESP 16; TEMP 37; O2SAT 97
[2022-07-16 01:31] LABS: Hematocrit 27.6 % (37.0-47.0)
[2022-07-16 01:33] LABS: Hemoglobin 8.7 g/dL (12.2-16.2)
--- NOTE | 2022-07-16 02:19 | PC.NURSE ---
No changes since prior assessment. Report given to S Call RN
--- NOTE | 2022-07-16 02:57 | PC.NURSE ---
She is asleep. No acute changes.
[2022-07-16 04:00] VITALS: BP 105/44; PULSE 78; PULSE 80; RESP 22; TEMP 36.7; O2SAT 93; BMI 29.7
--- NOTE | 2022-07-16 06:30 | EXP.SURG.CON ---
History of Present Illness *Admission Date: 07/15/22 *History of present illness: Patient is an 82-year-old female from [place]. Her primary care provider is Dr. Frank Marie. She had seen Torstenlaure Milton and informed she had critical labs and needed to be seen in the ER. Patient reports weakness and elevated heart rate over several days leading up to arrival. She had presented to the emergency department at which time she was found to have a hemoglobin of 6.9 and tachycardic with a rate of 130s. EKG shows sinus tachycardia. She had findings of hypoxia with saturations in the 80s on room air. Patient has been having dark-colored stools but has been on oral iron supplementation for some time. No prior history of colonoscopy. She states that she has not felt the need to have one performed. Denies any known history of ulcer disease. She had undergone outpatient transfusion of blood several months ago. Patient had apparently been hospitalized last month for observation with mental status changes and possible concern for stroke. At that time her hemoglobin was 10.7. She was started on aspirin and Plavix at that time. Stool for occult blood is negative. [facility] Disclaimer: The information contained in this section may have been updated after the patient was seen, as this information can be updated by other users. Medical History Anxiety COPD (chronic obstructive pulmonary disease) History of COVID-19 Hypothyroidism Surgical History Hx of tubal ligation Family History Other No significant family history Social History Smoking Status: Never smoker alcohol intake: never current occupational status: retired Travel in the last 8 weeks: None household members: spouse housing: house marital status: education level: high school service: No [employer]: No caffeine: No Review of Systems Constitutional Constitutional: Denies headache(s) and Reports weakness ENT Ears, Nose, Mouth, and Throat: Denies headache(s) *Musculoskeletal Musculoskeletal: Denies numbness *Neurologic Neurologic: Denies headache(s), Denies numbness and Reports weakness Meds Home Medications and Allergies Home Medications Medication Instructions Recorded Confirmed Type fluticasone fur. 100 mcg-umeclid 1 puff IH DAILY COPD 02/03/21 07/16/22 History 62.5 mcg-vilant 25 mcg inhalat.powder levalbuterol HCl 1.25 mg/3 mL 1.25 mg IH Q8H Breathing problems 02/03/21 07/16/22 History solution for nebulization levothyroxine 100 mcg tablet 100 mcg PO DAILY thyroid 02/03/21 07/16/22 History oxazepam 10 mg capsule 10 mg PO TID Anxiety 02/03/21 07/16/22 History roflumilast 250 mcg tablet 250 mcg PO DAILY COPD 02/03/21 07/16/22 History aspirin 81 mg chewable tablet 81 mg PO DAILY n/a 07/16/22 07/16/22 History clopidogrel 75 mg tablet 75 mg PO DAILY n/a 07/16/22 07/16/22 History New Prescriptions to Start Prescriptions: Allergies Allergy/AdvReac Type Severity Reaction Status Date / Time codeine [CODEINE] Allergy Mild Verified 02/03/21 11:51 Sulfa (Sulfonamide Allergy Mild Verified 02/03/21 11:51 Antibiotics) [SULFA (SULFONAMIDE ANTIBIOTICS)] Exam (Inpt) Vital signs and Labs for Last 24 Hours: Temp Pulse Resp BP Pulse Ox 98.0 F 78 22 105/44 L 93 L 07/16/22 04:00 07/16/22 04:00 07/16/22 04:00 07/16/22 04:00 07/16/22 04:00 Laboratory Results - last 24 hr 07/15/22 14:33: Sodium 143, Potassium 3.7, Chloride 106, Carbon Dioxide 32 H, Anion Gap 8.7, BUN 16, Creatinine 1.00, Estimated Creat Clear 58, Estimated GFR 53 L, Est GFR ( Amer) 65, Glucose 145 H, Calcium 8.6, Total Bilirubin 0.2, AST 23, ALT 15, Alkaline Phosphatase 65, Total Protein 6.7, Al
--- NOTE | 2022-07-16 07:32 | HMH.PHAINT1 ---
Pharmacy Intervention Comments: MEDICATION RECONCILIATION COMPLETED ON PATIENT USING EXTERNAL FILL HISTORY FROM PHARMACY. -GONSALO JIMÉNEZ, ARNAVD
[2022-07-16 08:00] VITALS: BP 104/60; PULSE 80; RESP 14; TEMP 36.7; O2SAT 96
[2022-07-16 08:08] LABS: Basophils % 0.6 % (0.1-2.0); Eosinophils # 0.2 K/mm3 (0.0-0.4); Hematocrit 26.4 % (37.0-47.0); Hemoglobin 8.6 g/dL (12.2-16.2); Lymphocytes # 1.4 K/mm3 (0.7-4.5); Lymphocytes % 19.2 % (10-50); Mean Corpuscular HGB Conc 32.7 g/dL (31.8-35.4); Mean Corpuscular Hemoglobin 28.7 pg (27.0-31.2); Mean Corpuscular Volume 87.8 fl (81-99); Mean Platelet Volume 7.9 fl (7.4-10.4); Monocytes # 0.4 K/mm3 (0.1-1.0); Monocytes % 4.9 % (1.7-9.3); Neutrophils # 5.2 K/mm3 (1.8-7.8); Neutrophils % 72.3 % (37.0-80.0); Platelet Count 333 K/mm3 (142-424); White Blood Count 7.1 K/mm3 (4.8-10.8)
[2022-07-16 08:25] LABS: Chloride 107 mmol/L (98-107); Sodium 141 mmol/L (136-145)
[2022-07-16 08:26] LABS: Potassium 3.8 mmoL/L (3.5-5.1)
[2022-07-16 08:29] LABS: Anion Gap 7.8 mEq/L (5-15); Blood Urea Nitrogen 15 mg/dl (7-17); Calcium 8.2 mg/dl (8.4-10.2); Carbon Dioxide 30 mmol/L (22.0-30.0); Creatinine Clearance Estimated 61 mL/min (50-200); Estimated Glomerular Filt Rate 60 ml/min (>60); GFR (African American) 73 ML/MIN (>60); Glucose 97 mg/dl (74-100)
--- NOTE | 2022-07-16 09:32 | EXP.DC.SUM ---
General Admission date:: 07/15/22 Discharge date: 07/16/22 HPI HPI HPI: Patient is an 82-year-old female from [place]. Her primary care provider is Dr. Frank Marie. She had seen Bran Rose and informed she had critical labs and needed to be seen in the ER. Patient reports weakness and elevated heart rate over several days leading up to arrival. She had presented to the emergency department at which time she was found to have a hemoglobin of 6.9 and tachycardic with a rate of 130s. EKG shows sinus tachycardia. She had findings of hypoxia with saturations in the 80s on room air. Patient has been having dark-colored stools but has been on oral iron supplementation for some time. No prior history of colonoscopy. She states that she has not felt the need to have one performed. Denies any known history of ulcer disease. She had undergone outpatient transfusion of blood several months ago. Patient had apparently been hospitalized last month for observation with mental status changes and possible concern for stroke. At that time her hemoglobin was 10.7. She was started on aspirin and Plavix at that time. Stool for occult blood is negative. Hospital Course Hospital Course Hospital Course: 82-year-old female who presents with weakness that has been present for over 3 months but worsening over the last 3-days, went to see PCP, informed to go to the ER for critical lab results, found to have a hemoglobin of 6.9 Anemia due to suspected GI loss - Patient has a history of anemia needing transfusion however her last admission her hemoglobin was above 10. Was started on aspirin and Plavix, presented with hemoglobin of 6.9. Transfused 2 units packed red blood cells with good response, improved 8.7. Repeat labs in the morning 6 hours later with stable hemoglobin of 8.6. Patient is adamant that she does not want any further work-up during this hospitalization. Would like to go home today. Labs repeated in the afternoon with hemoglobin of 8.6. Of note, patient's hemoglobin earlier in June was above 10. She was started on aspirin and Plavix at that time for TIA like event. We will stop aspirin and Plavix at this time given concern that they are a culprit in her anemia. Risk outweighs benefit of continuing these medications. Initiated on pantoprazole 40 mg oral daily for the next month. - Surgery was consulted during admission, saw patient and recommended EGD however patient declined at this time. Patient has had worsening weakness over the past 3 months. Continue her iron supplementation at discharge. Plan for close follow-up with surgery as an outpatient to further discuss planned EGD and/or colonoscopy. Counseled on need to return to the hospital if develops bright red blood per rectum, hematemesis, or melenic stools. -Chronic hypoxia -Oxygen dependent COPD ABG reviewed. Chronic hypoxia. Stable on 2 to 3 L at home. History of COPD. Continue home oxygen as ordered. Continued home Roflumilast 250 mg daily. Continue DuoNebs 3 times daily. Continued home Trelegy inhaler. - Anxiety Disorder: continued home dose of Oxazepam 10 mg po tid Patient's hemoglobins have remained stable. Strongly encouraged to pursue further work-up during hospitalization however patient is not interested at this time. Plan for close follow-up in the outpatient setting. Strong concern for potential for readmission given patient's preferences. Exam Data for Last 24 hours Vital signs and Labs for Last 24 Hours: Temp Pulse Resp BP Pulse Ox 98.1 F 80 14 104/60 L 96 07/16/22 08:00 07/16/22 08:00 07/16/22 08:00 07/16/22 08:00 07/16/22 08:00 Laboratory Results - last 24 hr 07/15/22 14:33: Sodium 143, Potassium 3.7, Chloride 106, Carbon Dioxide 32 H, Anion Gap 8.7, BUN 16, Creatinine 1.00, Estimated Creat Clear 58, Estimated GFR 53 L, Est GFR ( Amer) 65, Glucose 145 H, Calcium 8.6, Total Bilirubin 0.2, AST 23, ALT 15, Alkaline Phospha
[2022-07-16 12:36] VITALS: PULSE 118
[2022-07-16 13:09] VITALS: PULSE 70; PULSE 78
[2022-07-16 14:39] LABS: Hematocrit 26.7 % (37.0-47.0); Hemoglobin 8.6 g/dL (12.2-16.2)
--- NOTE | 2022-07-19 13:58 | CARE MANAGER ---
Contacted patient related to hospital discharge. She states she is feeling better and is aware of medication changes. She wrote down her follow up appointments and denies questions or concerns. GIANFRANCO Hwang
== END 2022-07-16 15:32 | disposition home or self-care (01) ==
LOC: ER 19:33 → 2ND 19:39
PROVIDERS: Nurse Practitioner Family; Admitting Provider Internal Medicine Adolescent Medicine; Emergency Provider Emergency Medicine; PCP Internal Medicine; Visit Provider Internal Medicine Adolescent Medicine
DX: J44.9 Chronic obstructive pulmonary disease, unspecified; E03.9 Hypothyroidism, unspecified; J96.11 Chronic respiratory failure with hypoxia; Z86.16 Personal history of COVID-19; Z79.899 Other long term (current) drug therapy; Z99.81 Dependence on supplemental oxygen; D50.0 Iron deficiency anemia secondary to blood loss (chronic); R06.9 Unspecified abnormalities of breathing
CPT/HCPCS: G0378; 36415; 36430; 71045; 80048; 80053; 81001; 82272; 82803; 83605; 83880; 84484; 85014; 85018; 85025; 86850; 87040; 93005; 94640; 99285; C9803; G0328; P9016; U0003; U0005

== ENCOUNTER → 2022-07-30 11:34 | Outpatient (CLI) | payer MEDICARE, BC, SELFPAY ==
[2022-07-30 12:00] LABS: Basophils # 0.1 K/mm3 (0-0.2); Basophils % 0.6 % (0.1-2.0); Eosinophils # 0.2 K/mm3 (0.0-0.4); Eosinophils % 2.8 % (0.1-12.0); Hematocrit 32.7 % (37.0-47.0); Hemoglobin 10.4 g/dL (12.2-16.2); Lymphocytes # 1.5 K/mm3 (0.7-4.5); Lymphocytes % 18.5 % (10-50); Mean Corpuscular HGB Conc 31.8 g/dL (31.8-35.4); Mean Corpuscular Hemoglobin 27.9 pg (27.0-31.2); Mean Corpuscular Volume 87.7 fl (81-99); Mean Platelet Volume 8.1 fl (7.4-10.4); Monocytes # 0.5 K/mm3 (0.1-1.0); Monocytes % 6.5 % (1.7-9.3); Neutrophils # 5.8 K/mm3 (1.8-7.8); Neutrophils % 71.6 % (37.0-80.0); Platelet Count 452 K/mm3 (142-424); Red Blood Count 3.73 M/mm3 (4.20-5.40); Red Cell Distribution Width 14.8 % (11.5-17.5)
== END ==
PROVIDERS: PCP Internal Medicine; Visit Provider Internal Medicine
DX: R53.82 Chronic fatigue, unspecified (principal); D64.9 Anemia, unspecified
CPT/HCPCS: 85025

== ENCOUNTER → 2022-08-25 12:06 | Outpatient (CLI) | payer MEDICARE, BC, SELFPAY ==
[2022-08-25 12:17] LABS: Basophils # 0.1 K/mm3 (0-0.2); Basophils % 0.7 % (0.1-2.0); Eosinophils # 0.2 K/mm3 (0.0-0.4); Eosinophils % 1.6 % (0.1-12.0); Hematocrit 37.4 % (37.0-47.0); Hemoglobin 11.7 g/dL (12.2-16.2); Lymphocytes # 1.1 K/mm3 (0.7-4.5); Lymphocytes % 11.4 % (10-50); Mean Corpuscular HGB Conc 31.2 g/dL (31.8-35.4); Mean Corpuscular Hemoglobin 27.5 pg (27.0-31.2); Mean Platelet Volume 7.7 fl (7.4-10.4); Monocytes # 0.5 K/mm3 (0.1-1.0); Monocytes % 4.7 % (1.7-9.3); Neutrophils % 81.6 % (37.0-80.0); Platelet Count 509 K/mm3 (142-424); Red Blood Count 4.25 M/mm3 (4.20-5.40); Red Cell Distribution Width 15.4 % (11.5-17.5); White Blood Count 9.8 K/mm3 (4.8-10.8)
== END ==
PROVIDERS: PCP Internal Medicine; Visit Provider Internal Medicine
DX: J44.9 Chronic obstructive pulmonary disease, unspecified (principal); D50.9 Iron deficiency anemia, unspecified
CPT/HCPCS: 85025

== ENCOUNTER → 2022-09-16 09:23 | Outpatient (CLI) | payer MEDICARE, BC, SELFPAY ==
[2022-09-16 10:11] LABS: Basophils % 0.6 % (0.1-2.0); Eosinophils # 0.2 K/mm3 (0.0-0.4); Eosinophils % 2.4 % (0.1-12.0); Hematocrit 39.4 % (37.0-47.0); Hemoglobin 11.9 g/dL (12.2-16.2); Lymphocytes % 13.9 % (10-50); Mean Corpuscular HGB Conc 30.1 g/dL (31.8-35.4); Mean Corpuscular Hemoglobin 27.3 pg (27.0-31.2); Mean Corpuscular Volume 90.8 fl (81-99); Mean Platelet Volume 7.2 fl (7.4-10.4); Monocytes # 0.4 K/mm3 (0.1-1.0); Monocytes % 5.3 % (1.7-9.3); Neutrophils # 5.7 K/mm3 (1.8-7.8); Neutrophils % 77.8 % (37.0-80.0); Platelet Count 273 K/mm3 (142-424); Red Blood Count 4.34 M/mm3 (4.20-5.40); Red Cell Distribution Width 15.4 % (11.5-17.5); White Blood Count 7.3 K/mm3 (4.8-10.8)
[2022-09-16 10:40] LABS: Iron 55 ug/dL (37-170)
[2022-09-16 10:49] LABS: Total Iron Binding Capacity 301 ug/dL (265-497)
[2022-09-16 11:54] LABS: Vitamin B12 726 pg/mL (239-931)
[2022-09-16 11:55] LABS: Folate 9.37 ng/mL
[2022-09-17 14:12] LABS: Immunoglobulin A, Qn 337 mg/dL (64-422); Immunoglobulin G, Qn 1114 mg/dL (586-1602); Immunoglobulin M, Qn 103 mg/dL (26-217)
[2022-09-17 18:08] LABS: Albumin 3.4 g/dL (2.9-4.4); Alpha-1-Globulin 0.3 g/dL (0.0-0.4); Alpha-2-Globulin 0.9 g/dL (0.4-1.0); Gamma Globulin 1.1 g/dL (0.4-1.8); Protein, Total 6.8 g/dL (6.0-8.5)
[2022-09-18 16:13] LABS: Free Kappa Lt Chains 27.7; Free Lambda Lt Chains 21.1
== END ==
PROVIDERS: PCP Internal Medicine; Visit Provider Internal Medicine Medical Oncology
DX: D50.9 Iron deficiency anemia, unspecified (principal)
CPT/HCPCS: 36415; 82607; 82728; 82746; 82784; 83540; 83550; 83883; 84155; 84165; 85025; 86334

== ENCOUNTER → 2022-10-01 11:15 | Outpatient (CLI) | payer MEDICARE, BC, SELFPAY ==
[2022-10-01 12:07] LABS: Basophils % 0.2 % (0.1-2.0); Eosinophils # 0.2 K/mm3 (0.0-0.4); Eosinophils % 2.3 % (0.1-12.0); Hematocrit 40.5 % (37.0-47.0); Hemoglobin 12.8 g/dL (12.2-16.2); Lymphocytes # 1.3 K/mm3 (0.7-4.5); Lymphocytes % 16.6 % (10-50); Mean Corpuscular HGB Conc 31.6 g/dL (31.8-35.4); Mean Corpuscular Volume 88.6 fl (81-99); Mean Platelet Volume 8.1 fl (7.4-10.4); Monocytes # 0.5 K/mm3 (0.1-1.0); Monocytes % 6.7 % (1.7-9.3); Neutrophils % 74.2 % (37.0-80.0); Platelet Count 332 K/mm3 (142-424); Red Blood Count 4.58 M/mm3 (4.20-5.40); Red Cell Distribution Width 15.8 % (11.5-17.5); Reticulocyte % (Auto) 0.8 % (0.9-3.2); White Blood Count 8.1 K/mm3 (4.8-10.8)
[2022-10-01 12:20] LABS: Anion Gap 12.5 mEq/L (5-15); Blood Urea Nitrogen 12 mg/dl (7-17); Calcium 9.2 mg/dl (8.4-10.2); Carbon Dioxide 34 mmol/L (22.0-30.0); Chloride 98 mmol/L (98-107); Estimated Glomerular Filt Rate 60 ml/min (>60); GFR (African American) 73 ML/MIN (>60); Glucose 81 mg/dl (74-100); Potassium 4.5 mmoL/L (3.5-5.1); Sodium 140 mmol/L (136-145)
[2022-10-01 12:51] LABS: Thyroid Stimulating Hormone 0.79 uIU/mL (0.465-4.68)
== END ==
PROVIDERS: PCP Internal Medicine; Visit Provider Internal Medicine
DX: E03.9 Hypothyroidism, unspecified (principal); I27.81 Cor pulmonale (chronic); D50.9 Iron deficiency anemia, unspecified; J44.9 Chronic obstructive pulmonary disease, unspecified
CPT/HCPCS: 80048; 84443; 85025; 85044

== ENCOUNTER → 2022-12-01 12:47 | Outpatient (CLI) | payer MEDICARE, BC, SELFPAY ==
[2022-12-01 13:32] LABS: Basophils % 0.2 % (0.1-2.0); Eosinophils # 0.2 K/mm3 (0.0-0.4); Eosinophils % 2.8 % (0.1-12.0); Hematocrit 37.8 % (37.0-47.0); Hemoglobin 12.4 g/dL (12.2-16.2); Lymphocytes # 1.2 K/mm3 (0.7-4.5); Lymphocytes % 13.6 % (10-50); Mean Corpuscular HGB Conc 32.7 g/dL (31.8-35.4); Mean Corpuscular Hemoglobin 28.3 pg (27.0-31.2); Mean Corpuscular Volume 86.5 fl (81-99); Mean Platelet Volume 9.1 fl (7.4-10.4); Monocytes # 0.5 K/mm3 (0.1-1.0); Monocytes % 5.6 % (1.7-9.3); Neutrophils # 6.7 K/mm3 (1.8-7.8); Neutrophils % 77.8 % (37.0-80.0); Platelet Count 335 K/mm3 (142-424); Red Blood Count 4.37 M/mm3 (4.20-5.40); Red Cell Distribution Width 14.5 % (11.5-17.5); White Blood Count 8.6 K/mm3 (4.8-10.8)
[2022-12-01 13:57] LABS: Anion Gap 14.8 mEq/L (5-15); Blood Urea Nitrogen 14 mg/dl (7-17); Calcium 9.2 mg/dl (8.4-10.2); Carbon Dioxide 34 mmol/L (22.0-30.0); Chloride 96 mmol/L (98-107); Estimated Glomerular Filt Rate 69 ml/min (>60); GFR (African American) 84 ML/MIN (>60); Glucose 78 mg/dl (74-100); Potassium 4.8 mmoL/L (3.5-5.1); Sodium 140 mmol/L (136-145)
[2022-12-01 14:08] LABS: Free T4 (Free Thyroxine) 1.56 ng/dl (0.78-2.19)
== END ==
PROVIDERS: PCP Internal Medicine; Visit Provider Internal Medicine
DX: D50.9 Iron deficiency anemia, unspecified (principal); E03.9 Hypothyroidism, unspecified; I27.81 Cor pulmonale (chronic); J44.9 Chronic obstructive pulmonary disease, unspecified; N39.0 Urinary tract infection, site not specified
CPT/HCPCS: 80048; 84439; 84443; 85025

== ENCOUNTER → 2023-03-01 12:17 | Outpatient (CLI) | payer MEDICARE, BC, SELFPAY ==
[2023-03-01 13:05] LABS: Basophils % 0.4 % (0.1-2.0); Eosinophils # 0.2 K/mm3 (0.0-0.4); Eosinophils % 2.6 % (0.1-12.0); Hematocrit 42.6 % (37.0-47.0); Hemoglobin 13.3 g/dL (12.2-16.2); Lymphocytes # 1.2 K/mm3 (0.7-4.5); Lymphocytes % 13.8 % (10-50); Mean Corpuscular HGB Conc 31.3 g/dL (31.8-35.4); Mean Corpuscular Hemoglobin 28.8 pg (27.0-31.2); Mean Corpuscular Volume 91.9 fl (81-99); Mean Platelet Volume 8.8 fl (7.4-10.4); Monocytes # 0.6 K/mm3 (0.1-1.0); Monocytes % 6.5 % (1.7-9.3); Neutrophils # 6.5 K/mm3 (1.8-7.8); Neutrophils % 76.7 % (37.0-80.0); Platelet Count 368 K/mm3 (142-424); Red Blood Count 4.64 M/mm3 (4.20-5.40); Red Cell Distribution Width 13.9 % (11.5-17.5); White Blood Count 8.5 K/mm3 (4.8-10.8)
== END ==
PROVIDERS: PCP Internal Medicine; Visit Provider Internal Medicine
DX: D50.9 Iron deficiency anemia, unspecified (principal)
CPT/HCPCS: 85025

== ENCOUNTER 2023-08-09 15:04 | Outpatient (POV) | payer MEDICARE, BC, SELFPAY | END 2023-08-09 23:59 | disposition home or self-care (01) | LOC: SC 15:05 | PROVIDERS: PCP Internal Medicine; Visit Provider Dermatology | DX: Z00.00 Encounter for general adult medical examination without abnormal findings (principal) ==

== ENCOUNTER 2023-08-25 16:24 | Observation (INO) | payer MEDICARE, BC, SELFPAY ==
[2023-08-25] VITALS (7 sets, daily range): BP systolic 133–149; BP diastolic 74–83; PULSE 89–144; RESP 24–35; TEMP 36.6–36.9; O2SAT 86–95; BMI 28.1; BMI 29.8
--- NOTE | 2023-08-25 16:47 | XR_ITS ---
PROCEDURE INFORMATION: Exam: XR Chest Exam date and time: 08/25/2023 4:58 PM Age: 83 years old Clinical indication: Dyspnea TECHNIQUE: Imaging protocol: Radiologic exam of the chest. Views: 1 view. COMPARISON: CR XR CHEST PORTABLE 07/15/2022 3:49 PM FINDINGS: Lungs: A few granulomata are stable. Minor prominence to the basilar cistern is stable which may reflect a low-grade interstitial abnormality. The lungs appear otherwise clear. No focal areas of consolidation. Pleural spaces: No pleural effusions. Negative for pneumothorax. Heart/Mediastinum: Pulmonary vasculature is within range of normal. The heart is borderline enlarged. Vasculature: The aorta demonstrates mild atherosclerotic calcification. Bones/joints: There is no evidence of acute fracture. IMPRESSION: 1. Minor stable prominence to the basilar interstitium which may reflect a low-grade interstitial abnormality. 2. Negative for an acute cardiopulmonary abnormality. Stable chest radiograph.
--- NOTE | 2023-08-25 16:48 | ED_ITS ---
Discharge Plan Disposition Patient Disposition: Admitted Prescriptions Prescriptions: No Action oxazepam 10 MG capsule 10 mg PO TID levothyroxine 100 MCG tablet 100 mcg PO DAILY levalbuterol HCl 1.25 MG/3 ML solution for nebulization 1.25 mg inhalation Q8H [id number]-[id number] 1 EACH blister with device 1 puff inhalation DAILY roflumilast 250 MCG tablet 250 mcg PO DAILY Patient Comments: TAKE ONE TABLET BY MOUTH EVERY DAY nitrofurantoin monohyd/m-cryst 100 mg capsule 100 mg PO BID pantoprazole 40 mg Tablet,Delayed Release (Dr/Ec) 40 mg PO DAILY 30 Days Qty: 30 0RF Referrals Follow up/Referrals: Frank Marie MD [Primary Care Provider] - See instructions Clinical Impressions Clinical Impression: Tachycardia, Acute dyspnea Discharge ED Provider: Renard Ray General Adult HPI General Chief complaint: Shortness of Breath/Dyspnea Stated complaint: SOA, oxygen is dropping Time Seen by Provider: 08/25/23 16:40 History of Present Illness HPI narrative: Patient is an 83-year-old female the history of COPD presents today with 1 week of fevers chills cough shortness of breath at home. She states that she has a history of chronic anemia and is on iron supplementation and has had to have transfusions in the past and feels very weak. Also states that her has had similar symptoms regarding fever at home recently. Denies any increase in oxygen supplementation use she is on 2 L home oxygen nasal cannula at home. Related Data Home Medications Medication Instructions Recorded Confirmed fluticasone fur. 100 mcg-umeclid 1 puff inhalation DAILY COPD 02/03/21 09/16/22 62.5 mcg-vilant 25 mcg inhalat.powder levalbuterol HCl 1.25 mg/3 mL 1.25 mg inhalation Q8H Breathing 02/03/21 09/16/22 solution for nebulization problems levothyroxine 100 mcg tablet 100 mcg PO DAILY thyroid 02/03/21 09/16/22 oxazepam 10 mg capsule 10 mg PO TID Anxiety 02/03/21 09/16/22 roflumilast 250 mcg tablet 250 mcg PO DAILY COPD 02/03/21 09/16/22 nitrofurantoin 100 mg PO BID Infection 07/16/22 09/16/22 monohydrate/macrocrystals 100 mg capsule Previous Rx's Medication Instructions Recorded pantoprazole 40 mg tablet,delayed 40 mg PO DAILY 30 days #30 tabs 07/16/22 release Allergies Allergy/AdvReac Type Severity Reaction Status Date / Time codeine [CODEINE] Allergy Mild Verified 09/16/22 08:17 Sulfa (Sulfonamide Allergy Mild Verified 09/16/22 08:17 Antibiotics) [SULFA (SULFONAMIDE ANTIBIOTICS)] [facility] Disclaimer: The information contained in this section may have been updated after the patient was seen, as this information can be updated by other users. Medical History Anxiety COPD (chronic obstructive pulmonary disease) History of COVID-19 Hypothyroidism Surgical History Hx of tubal ligation Family History Other No significant family history Social History Smoking Status: Former smoker alcohol intake: never current occupational status: retired Travel in the last 8 weeks: None household members: spouse housing: house marital status: education level: high school service: No usp: No caffeine: No ROS Obtained: Yes All systems reviewed & no additional complaints except as documented Physical Exam General General appearance: alert and in no apparent distress Respiratory Respiratory exam: Present other (Patient is tachypneic oxygen saturations 86 to 89% on 3 L nasal cannula nonfocal respiratory exam no wheezing no focal adventitious lung sound) Cardiovascular Cardiovascular exam: Present tachycardia and irregular rhythm Neurological Exam Neurological exam: Present alert and oriented X3 Medical Decision Making Cesar Inquiry Pt receiving controlled substance: No Vital Signs: 08/25/23 16:26 08/25/23 17:00 08/25/23 17:31 Temperature 98.4 F Temperature Source Oral Pulse Rate 138 H 138 H Pulse Rate [Right] 144 H Respiratory Rate 30 H 26 H 24 Blood Pressure 143/79 H 139/74 Blood Pressure [Right Arm] 135/78 Blood Pressure Mean 94 94 Blood Pressure Mean [Right Arm] 97 Blood Pressure Source [Right Arm] Automatic Cuff 02 Sat by Pulse Oximetry 86 L 92 L 92 L Oxygen Delivery Method Nasal Cannula Nasal Cannula Oxygen Flow Rate (LPM) 3 3 08/25/23 18:00 08/25/23 18:45 Temperature Temperature Source Pulse Rate 133 H 139 H Pulse Rate [Right] Respiratory Rate 24 26 H Blood Pressure 133/83 149/80 H Blood Pressure [Right Arm] Blood Pressure Mean 95 Blood Pressure Mean [Right Arm] Blood Pressure Source [Right Arm] 02 Sat by Pulse Oximetry 93 L 95 Oxygen Delivery Method Nasal Cannula Nasal Cannula Oxygen Flow Rate (LPM) 3 3 Lab Data Lab results reviewed: Yes I reviewed the patient's lab results. Lab Results 08/25/23 16:50: WBC 5.5, RBC 4.21, Hgb 12.7, Hct 39.3, MCV 93.3, MCH 30.3, MCHC 32.5, RDW 13.8, Plt Count 297, MPV 8.3, Neut % (Auto) 87.6 H, Lymph % (Auto) 9.9 L, [place] % (Auto) 1.9, Eos % (Auto) 0.2, Baso % (Auto) 0.4, Neut # (Auto) 4.8, L ymph # (Auto) 0.5 L, [place] # (Auto) 0.1, Eos # (Auto) 0.0, Baso # (Auto) 0.0, Total Counted 100, Neutrophils % (Manual) 81 H, Band Neutrophils % 3.0, Lymphocytes % (Manual) 13, Atypical Lymphs % 2.0, Monocytes % (Manual) 1 L, Platelet Estimate Normal, RBC Morphology Normal, Hypochromasia 1+, D-Dimer 0.49, Sodium 140, Potassium 4.3, Chloride 100, Carbon Dioxide 31 H, Anion Gap 13.3, BUN 13, Creatinine 0.80, Estimated GFR 69, Est GFR ( Amer) 83, Glucose 127 H, Lactate 1.0, Calcium 9.5, Total Bilirubin 0.4, AST 37 H, ALT 29, Alkaline Phosphatase 93, Troponin I < 0.01, NT-Pro-B Natriuret Pep 138, Total Protein 7.8, Albumin 4.3, Globulin 3.5 H, Albumin/Globulin Ratio 1.2 08/25/23 16:59: SARS-CoV-2 (PCR) Not detected, Influenza A Untype (PCR) Not detected, Influenza Type B (PCR) Not detected 08/25/23 17:07: VBG pH 7.39, VBG pCO2 48.6, VBG pO2 40.9 H, VBG HCO3 28.6, VBG Total CO2 30.1 H, VBG O2 Saturation 75.8 H, VBG Base Excess 3.6 H, VBG Lactic Acid 1.6 08/25/23 17:13: Blood Type O Positive, Antibody Screen Negative 08/25/23 16:50 08/25/23 16:50 Orders (Tests/Meds): ED MEDICATIONS Generic Name Dose Route Start Last Admin Trade Name Freq PRN Reason Stop Dose Admin Sodium Chloride 10 ml 08/25/23 20:14 Sodium Chloride 0.9% 10ml Vial IV 09/24/23 20:13 NEEDED PRN to Dilute Lorazepam inj Discontinued Medications Generic Name Dose Route Start Last Admin Trade Name Freq PRN Reason Stop Dose Admin Albuterol/Ipratropium 3 ml 08/25/23 17:41 08/25/23 18:35 Ipratropium/Albuterol 3 Ml Neb IH 08/25/23 17:42 3 ml ONCE ONE Administration Lactated Ringer's 1,000 mls @ 999 mls/hr 08/25/23 17:45 08/25/23 18:35 Lactated Ringer's 1000 Ml Bag IV 08/25/23 18:45 999 mls/hr .Q1H1M MAGALI Administration Iopamidol 70 ml 08/25/23 19:32 08/25/23 19:33 Iopamidol-370 (76%);100ml Bottle IV 08/25/23 19:33 70 ml ONCE ONE Administration Lorazepam 0.5 mg 08/25/23 20:14 08/25/23 20:20 Lorazepam 2mg/Ml Vial IV 08/25/23 20:15 0.5 mg ONCE ONE Administration Prednisone 60 mg 08/25/23 17:41 08/25/23 18:40 Prednisone 20mg Tab PO 08/25/23 17:42 Not Given ONCE ONE Sodium Chloride 10 ml 08/25/23 19:32 08/25/23 19:33 Sodium Chloride 0.9% 10ml Syr (Rad Only) IV 08/25/23 19:33 10 ml ONCE ONE Administration Sodium Chloride 50 ml 08/25/23 19:32 08/25/23 19:33 0.9 % Sodium Chloride 50 Ml Vial IV 08/25/23 19:33 50 ml ONCE ONE Administration ORDERS Category Date Time Status Type and Screen Stat BBK 08/25/23 17:[address] angio chest PE protocol Stat Cat Scan 08/25/23 18:55 Completed CXR --portable [XR chest portable] Stat Exams 08/25/23 16:47 Completed BNP [Brain Natriuretic Peptide] Stat Lab 08/25/23 16:50 Completed CBC w/Auto Diff [Complete Blood Count Auto Diff] Stat Lab 08/25/23 16:50 Completed CMP [Comprehensive Metabolic Panel] Stat Lab 08/25/23 16:50 Completed D-Dimer Stat Lab 08/25/23 16:50 Completed Full Resp Panel w/COVID ([facility]) Routine Lab 08/25/23 16:59 Received Lactic Acid Stat Lab 08/25/23 16:50 Completed Rapid PCR Covid and Flu A/B Stat Lab 08/25/23 16:59 Completed Trop I [Troponin I] Stat Lab 08/25/23 16:50 Completed Troponin I Q3H Lab 08/25/23 20:15 Received Troponin I Q3H Lab 08/25/23 23:00 Ordered Blood Culture Stat Micro 08/25/23 17:25 Received Venous Blood Gas Stat RT 08/25/23 17:07 Completed ECG Data Tracing #1: I reviewed this ECG and interpreted as documented below: Ventricular rate of 140s sinus tachycardia with sinus arrhythmia right axis deviation no acute ischemic changes noted Medical Decision Narrative: Patient is an 83-year-old female presenting today with tachypnea and tachycardia that is irregular fevers chills cough at home also very pale in appearance. Differential includes profound anemia and GI losses pneumonia pulmonary embolism acute myocardial infarction infectious processes such as pneumonia COVID flu etc. Broad workup is initiated will reassess shortly. Reassessment 8:25 PM patient still significantly tachycardic with a heart rate of 1 40-1 50. On her EKG it appears to be sinus tachycardia no evidence of atrial fibrillation. Patient was given IV fluids and significant improvement. On serial respiratory exam she is not wheezing I do not believe this is a COPD exacerbation. She was persistently tachycardic and a CT PE was performed which did not show pulmonary embolism or any lung parenchymal disease such as pneumonia. Troponin and BNP were also unremarkable. COVID and flu negative. At this point there is unexplained tachycardia but she is too tachycardic to go home at this point. IV fluids were given she is somewhat tremulous has missed her oxazepam dose gave her some IV Ativan to try to calm down those symptoms but I do not believe that is primarily with causing her tachycardia. I spoke with Otto Larose with hospital medicine who agreed to admit the patient for further evaluation and management. Particular there is no evidence of any bacterial infection patient does not have fever or leukocytosis and I have opted to not give antibiotics at the moment. Critical Care Critical Care Time Critical Care Time: Yes Attestation: On 08/25/23, the high probability of a clinically significant, sudden or life threatening deterioration of the following system(s) required my full and direct attention, intervention and personal management. The time I documented below is in addition to time spent performing reported procedures but includes the following listed in this critical care notation. Total Time Total Critical Care Time: 35
--- NOTE | 2023-08-25 16:49 | ECG_ITS ---
APPROVED REPORT Exam: Resting ECG HR:140 bpm ECG Measurements Heart Rate 140 AXES LA 151 P 101 QRSd 84 QRS 97 QT 304 T 82 QTc 385 Conclusion SINUS TACHYCARDIA BORDERLINE RIGHT AXIS DEVIATION [QRS AXIS > 90] NONSPECIFIC ST & T-WAVE ABNORMALITY Electronically signed by : ROLY COOK, 08/26/2023 03:25:37
[2023-08-25 17:06] LABS: Basophils % 0.4 % (0.1-2.0); Eosinophils % 0.2 % (0.1-12.0); Hematocrit 39.3 % (37.0-47.0); Hemoglobin 12.7 g/dL (12.2-16.2); Lymphocytes # 0.5 K/mm3 (0.7-4.5); Lymphocytes % 9.9 % (10-50); Mean Corpuscular HGB Conc 32.5 g/dL (31.8-35.4); Mean Corpuscular Hemoglobin 30.3 pg (27.0-31.2); Mean Corpuscular Volume 93.3 fl (81-99); Mean Platelet Volume 8.3 fl (7.4-10.4); Monocytes # 0.1 K/mm3 (0.1-1.0); Monocytes % 1.9 % (1.7-9.3); Neutrophils # 4.8 K/mm3 (1.8-7.8); Neutrophils % 87.6 % (37.0-80.0); Platelet Count 297 K/mm3 (142-424); Red Blood Count 4.21 M/mm3 (4.20-5.40); Red Cell Distribution Width 13.8 % (11.5-17.5); White Blood Count 5.5 K/mm3 (4.8-10.8)
--- NOTE | 2023-08-25 17:06 | PC.NURSE ---
RAD at BS
--- NOTE | 2023-08-25 17:07 | PC.NURSE ---
RT notified of VBG order
[2023-08-25 17:13] LABS: MANUAL DIFFERENTIAL MANUAL DIFFERENTIAL (MANUAL DIFF)
[2023-08-25 17:14] LABS: Alanine Aminotransferase 29 U/L (12-78); Albumin Level 4.3 g/dl (3.5-5.0); Albumin/Globulin Ratio 1.2 (1.1-1.8); Alkaline Phosphatase 93 U/L (38-126); Anion Gap 13.3 mEq/L (5-15); Aspartate Amino Transferase 37 U/L (14-36); Bilirubin,Total 0.4 mg/dl (0.2-1.3); Calcium 9.5 mg/dl (8.4-10.2); Carbon Dioxide 31 mmol/L (22.0-30.0); Chloride 100 mmol/L (98-107); Globulin 3.5 g/dL (1.3-3.2); Glucose 127 mg/dl (74-100); Potassium 4.3 mmoL/L (3.5-5.1); Sodium 140 mmol/L (136-145); Total Protein,Serum 7.8 g/dl (6.3-8.2)
[2023-08-25 17:15] LABS: Lactate Venous 1.6 mmol/L (0.4-2.0); VBG Base Excess 3.6 mmol/L (-2.4-2.3); VBG HCO3 28.6 mmol/L (23-30); VBG Oxygen Saturation 75.8 % (50-70); VBG PCO2 48.6 mmol/L (35-51); VBG PH 7.39 mmol/L (7.31-7.41); VBG PO2 40.9 mmol/L (28-40); VBG Total CO2 30.1 mmol/L (23-27)
[2023-08-25 17:19] LABS: D-Dimer 0.49 ug/mL (0.0-0.5)
[2023-08-25 17:25] LABS: Coronavirus 19, PCR Not Detected (NotDetected); Influenza A, PCR Not Detected (NotDetected); Influenza B, PCR Not Detected (NotDetected)
[2023-08-25 17:27] LABS: Blood Urea Nitrogen 13 mg/dl (7-17); Estimated Glomerular Filt Rate 69 ml/min (>60); GFR (African American) 83 ML/MIN (>60)
[2023-08-25 17:28] LABS: NT Pro Brain Natriuretic Pep. 138 pg/mL (0-450)
[2023-08-25 17:31] LABS: Lymphocytes % 13 % (10-50); Monocytes % 1 % (2-9); Neutrophils % 81 % (42-76); Total Cells Counted 100
[2023-08-25 17:32] LABS: Hypochromasia 1+; Platelet Estimate Normal; RBC Morphology Normal
[2023-08-25 17:36] LABS: Troponin I < 0.01 ng/ml (0.00-0.034)
--- NOTE | 2023-08-25 17:47 | PC.NURSE ---
Took pt to the bathroom with assistance in a wheelchair and her daughter went in with her.
[2023-08-25] MEDS: IPRATROPIUM/ALBUTEROL 3 ML NEB IH (18:35)
[2023-08-25] MEDS: LACTATED RINGERS 1000ML 1,000 ML 999 ML IV (18:35)
--- NOTE | 2023-08-25 18:55 | CT_ITS ---
PROCEDURE INFORMATION: Exam: CTA Chest With Contrast Exam date and time: 08/25/2023 7:24 PM Age: 83 years old Clinical indication: Dyspnea; Additional info: Dyspnea, hr TECHNIQUE: Imaging protocol: Computed tomographic angiography of the chest with contrast. Exam focused on the arteries. 3D rendering (Not supervised by radiologist): MIP and/or 3D reconstructed images were created by the technologist. Radiation optimization: All CT scans at this facility use at least one of these dose optimization techniques: automated exposure control; mA and/or kV adjustment per patient size (includes targeted exams where dose is matched to clinical indication); or iterative reconstruction. Contrast material: ISO 370; Contrast volume: 70 ml; Contrast route: INTRAVENOUS (IV); COMPARISON: CR XR CHEST PORTABLE 08/25/2023 4:58 PM FINDINGS: Pulmonary arteries: There is heterogeneous contrast attenuation of visualized pulmonary arteries, more pronounced in the subsegmental vessels and likely related to contrast bolus. This limits the detection of pulmonary emboli in the small and peripheral pulmonary arterial branches. As seen, no large or central pulmonary emboli. Exclusion of pulmonary emboli is also limited due to motion artifact. Aorta: The visualized aorta demonstrates mild moderate atherosclerotic calcification. No aneurysm or dissection. Celiac trunk and mesenteric arteries: Atherosclerotic vascular calcifications involve the origin of the celiac and SMA arteries as well as bilateral renal arteries . There is mild narrowing involving the proximal celiac artery. There is minor narrowing involving the origin of the SMA. No significant narrowing involving the origin of the renal arteries. Thyroid: The visualized thyroid gland is normal. Lungs: Calcified granuloma in the left lower lobe is present. Nonspecific right basilar streaky opacities suggest atelectasis or parenchymal scarring. There is mild biapical pleuroparenchymal opacities suggestive of pleural scarring.Moderate centrilobular emphysematous changes are present. Impression new. Moderate emphysematous changes. Pleural spaces: There are no pleural effusions. No pneumothorax. Heart: The heart is not enlarged. There is no evidence of pericardial fluid collections. Lymph nodes: Calcified mediastinal hilar lymph nodes indicate prior granulomatous disease. Diaphragm: A small hiatal hernia is present. Liver: There is diffuse decrease in hepatic/liver parenchymal density involving the visualized portions of liver consistent with fatty infiltration. Gallbladder and bile ducts: Calcified gallstones are present involving the visualized portions gallbladder, incompletely visualized Kidneys and ureters: There are areas of renal cortical scarring involving the visualized superior kidneys bilaterally, greater on the right. There is a superior right renal cyst. Bones/joints: There is mild diffuse osteopenia. The thoracic spine demonstrates mild degenerative changes at multiple levels. There is increase in thoracic kyphosis. Soft tissues: Unremarkable. Other findings: Motion artifact does moderately limit the sensitivity of this examination. IMPRESSION: 1. Study quality limited due to motion artifact. Exclusion of pulmonary emboli limited due to heterogeneous contrast attenuation of visualized pulmonary arteries and motion artifact. As seen, no large or central pulmonary emboli. 2. Fatty hepatic infiltration. 3. Cholelithiasis. 4. Small hiatal hernia. 5. Moderate emphysema 6. Nonspecific right basilar streaky opacities suggest atelectasis or parenchymal scarring. 7. Mild biapical pleuroparenchymal opacities suggestive of pleural scarring. COMMENTS: Consistent with the [employer]'s Incidental Findings Committee white paper (J Am Easton Radiol 2018): Any incidental renal lesion less than 1 cm or classified as too small to characterize, or any incidental cystic renal lesion characterized as simple-appearing, is likely benign. No follow-up imaging is recommended for these lesions per consensus recommendations based on imaging criteria.
--- NOTE | 2023-08-25 18:55 | PC.NURSE ---
PT AND FAMILY UPDATED AT THIS TIME
[2023-08-25] MEDS: 0.9 % SODIUM CHLORIDE 50 ML VIAL IV (19:33)
[2023-08-25] MEDS: SODIUM CHLORIDE 0.9% 10ML SYR (RAD ONLY) 10 ML IV (19:33)
[2023-08-25] MEDS: IOPAMIDOL-370 (76%);100ML BOTTLE 70 ML IV (19:33)
[2023-08-25] MEDS: LORazepam 2MG/ML VIAL 0.5 MG IV (20:20)
[2023-08-25 20:26] LABS: Adenovirus,PCR Not Detected (NotDetected); Coronavirus 19, PCR Not Detected (NotDetected); Coronavirus 229E Not Detected (NotDetected); Coronavirus NL63 Not Detected (NotDetected); Coronavirus OC43 Not Detected (NotDetected); Coronovirus HKU1,PCR Not Detected (NotDetected); Human Metapneumovirus Not Detected (NotDetected); Influenza A, PCR Not Detected (NotDetected); Influenza AH1, 2009 Not Detected (NotDetected); Influenza AH1, PCR Not Detected (NotDetected); Influenza AH3,PCR Not Detected (NotDetected); Influenza B, PCR Not Detected (NotDetected); Parainfluenza 1, PCR Not Detected (NotDetected); Parainfluenza 2, PCR Not Detected (NotDetected); Parainfluenza 3, PCR Not Detected (NotDetected); Parainfluenza 4, PCR Not Detected (NotDetected); Respiratory Syncytial Virus Not Detected (NotDetected); Rhinovirus/Enterovirus Not Detected (NotDetected)
--- NOTE | 2023-08-25 20:28 | PC.NURSE ---
notified clubhouse attendant of admission
--- NOTE | 2023-08-25 20:29 | P.HP_ITS ---
History of Present Illness *Admission Date: 08/25/23 *Reason for visit:: Shortness of breath *History of present illness: Ms. Casper is an 83-year-old female history of COPD, chronic oxygen therapy, anxiety disorder who presented with over a week of fever and chills. Reports cough and shortness of breath. Last fever this past Tuesday. No nausea or vomiting. Tolerating p.o. intake. Last bowel movement yesterday. History of chronic anemia on iron supplementation per her report. [place] that she might be anemic and that is why she was more weak and her heart was racing. Has had increase her oxygen from 3 L to 4 L at home. Wears it continuously. Saw her primary care doctor in [facility] today who gave her a steroid shot. On presentation to the ER, states her had similar symptoms preceding hers. Workup in the ER with SIRS criteria (tachycardia and tachypnea). White cell count normal. Chest CT unremarkable. Medicine was consulted for monitoring overnight and serial labs given patient's abnormal vitals. Of note, does have anxiety and missed at least 1 dose today of her oxazepam. On evaluation to the floor, patient appears alert and oriented. In no acute distress. Heart rate in the 90s. On 3 to 4 L. No respiratory distress on exam. Family at bedside. Asking if she might be able to go home in the morning. [facility] Disclaimer: The information contained in this section may have been updated after the patient was seen, as this information can be updated by other users. Medical History Hypothyroidism Anxiety History of COVID-19 COPD (chronic obstructive pulmonary disease) Surgical History Hx of tubal ligation Family History Other No significant family history Social History Smoking Status: Former smoker alcohol intake: never current occupational status: retired Travel in the last 8 weeks: None household members: spouse housing: house marital status: education level: high school service: No alf: No caffeine: No Review of Systems Review of Systems Review of systems (narrative): 14 point review of systems performed, pertinent positives and negatives as per [facility] Meds Home Medications and Allergies Home Medications Medication Instructions Recorded Confirmed Type fluticasone fur. 100 mcg-umeclid 1 puff inhalation BID COPD 02/03/21 08/25/23 History 62.5 mcg-vilant 25 mcg inhalat.powder levalbuterol HCl 1.25 mg/3 mL 1.25 mg inhalation Q8H Breathing 02/03/21 08/25/23 History solution for nebulization problems levothyroxine 100 mcg tablet 100 mcg PO DAILY thyroid 02/03/21 08/25/23 History roflumilast 250 mcg tablet 500 mcg PO DAILY COPD 02/03/21 08/25/23 History pantoprazole 40 mg tablet,delayed 40 mg PO DAILY 30 days #30 tabs 07/16/22 08/25/23 Rx release oxazepam 15 mg capsule 15 mg PO TID 08/25/23 08/25/23 History New Prescriptions to Start Prescriptions: Allergies Allergy/AdvReac Type Severity Reaction Status Date / Time codeine [CODEINE] Allergy Mild Verified 09/16/22 08:17 Sulfa (Sulfonamide Allergy Mild Verified 09/16/22 08:17 Antibiotics) [SULFA (SULFONAMIDE ANTIBIOTICS)] Exam Data for Last 24 hours Vital signs and Labs for Last 24 Hours: Temp Pulse Resp BP Pulse Ox O2 Del Method O2 Flow Rate 98.4 F 139 H 26 H 149/80 H 95 Nasal Cannula 3 08/25/23 16:26 08/25/23 18:45 08/25/23 18:45 08/25/23 18:45 08/25/23 18:45 08/25/23 18:45 08/25/23 18:45 Laboratory Results - last 24 hr 08/25/23 16:50: WBC 5.5, RBC 4.21, Hgb 12.7, Hct 39.3, MCV 93.3, MCH 30.3, MCHC 32.5, RDW 13.8, Plt Count 297, MPV 8.3, Neut % (Auto) 87.6 H, Lymph % (Auto) 9.9 L, [place] % (Auto) 1.9, Eos % (Auto) 0.2, Baso % (Auto) 0.4, Neut # (Auto) 4.8, Lymph # (Auto) 0.5 L, [place] # (Auto) 0.1, Eos # (Auto) 0.0, Baso # (Auto) 0.0, Total Counted 100, Neutrophils % (Manual) 81 H, Band Neutrophils % 3.0, Lymphocytes % (Manual) 13, Atypical Lymphs % 2.0, Monocytes % (Manual) 1 L, Platelet Estimate Normal, RBC Morphology Normal, Hypochromasia 1+, D-Dimer 0.49, Sodium 140, Potassium 4.3, Chloride 100, Carbon Dioxide 31 H, Anion Gap 13.3, BUN 13, Creatinine 0.80, Estimated GFR 69, Est GFR ( Amer) 83, Glucose 127 H, Lactate 1.0, Calcium 9.5, Total Bilirubin 0.4, AST 37 H, ALT 29, Alkaline Phosphatase 93, Troponin I < 0.01, NT-Pro-B Natriuret Pep 138, Total Protein 7.8, Albumin 4.3, Globulin 3.5 H, Albumin/Globulin Ratio 1.2 08/25/23 16:59: SARS-CoV-2 (PCR) Not detected, Influenza A Untype (PCR) Not detected, Influenza Type B (PCR) Not detected 08/25/23 17:07: VBG pH 7.39, VBG pCO2 48.6, VBG pO2 40.9 H, VBG HCO3 28.6, VBG Total CO2 30.1 H, VBG O2 Saturation 75.8 H, VBG Base Excess 3.6 H, VBG Lactic Acid 1.6 08/25/23 17:13: Blood Type O Positive, Antibody Screen Negative I & O for Last 24 hours: Intake & Output 08/22/23 08/23/23 08/24/23 08/25/23 23:59 23:59 23:59 23:59 Weight 81.647 kg Constitutional Constitutional: no acute distress, obese, chronically ill appearing and cooperative *Routine HEENT Exam Head: Present normocephalic Eye: Present EOMI ENT: Present mucous membranes moist *Routine Neck Exam Neck: Present supple *Routine Respiratory Exam Respiratory: Present prolonged expiratory phase; Absent rhonchi, wheezes or crackles *Routine Cardiovascular Exam Cardiovascular: Present tachycardia *Routine Abdominal Exam Abdominal: Present soft, normoactive bowel sounds and distended; Absent tenderness *Routine Rectal Exam Rectal:: deferred *Routine Genitalia Exam Genitalia:: deferred *Routine Extremities Exam Extremities: Absent cyanosis, clubbing or edema *Routine Skin Exam Skin: Present intact; Absent cyanosis *Routine Neurological Exam Neurological: Present alert, oriented X3 and moving all extremities; Absent altered mental status Routine Psychiatric Exam Psychiatric: Present normal affect Assessment and Plan *Assessment and plan (1) SIRS (systemic inflammatory response syndrome): Status: Acute Category: Medical Code(s): R65.10 - Systemic inflammatory response syndrome (SIRS) of non-infectious origin without acute organ dysfunction (2) Acute dyspnea: Status: Acute Category: Medical Code(s): R06.00 - Dyspnea, unspecified (3) Tachycardia: Status: Acute Category: Medical Code(s): R00.0 - Tachycardia, unspecified (4) Chronic hypoxemic respiratory failure: Status: Chronic Category: Medical Code(s): J96.11 - Chronic respiratory failure with hypoxia (5) COPD (chronic obstructive pulmonary disease): Status: Chronic Category: Medical Code(s): J44.9 - Chronic obstructive pulmonary disease, unspecified (6) Anxiety disorder: Status: Chronic Category: Medical Code(s): F41.9 - Anxiety disorder, unspecified (7) TIA (transient ischemic attack): Status: Acute Category: Medical Code(s): G45.9 - Transient cerebral ischemic attack, unspecified (8) Hypothyroidism: Status: Chronic Category: Medical Code(s): E03.9 - Hypothyroidism, unspecified Plan 83-year-old female who presented with tachycardia, tachypnea. Meeting SIRS criteria but no focal source of infection. White cell count normal. Chest imaging personally reviewed with no focal consolidation or airspace disease. No PE. Discussed case with ER physician, request admission for further monitoring and evaluation with serial labs. Medicine agreed to admit. Holding on antibiotics given afebrile, normal white cell count, negative respiratory panel, and normal lung imaging. Will observe overnight. Problems addressed as follows: Tachycardia Tachypnea COPD -Previous illness over the past week, no fever since Tuesday per her report. Saw her primary care provider in [facility] who gave her a steroid shot today prior to presenting to the ER. -Comprehensive respiratory panel negative. Chest imaging with CT and x-ray negative. White cell count normal. -Blood culture pending. Will hold on antibiotics given clinical stability and normal white count. -Continue supplemental oxygen with goal saturation greater 90%. On 3 to 4 L. Baseline is 3 L -Continue ipratropium/lev albuterol every 6 hours scheduled for COPD -Continue Trelegy inhaler 1 puff twice daily -Continue Roflumilast 500 mcg daily -EKG obtained showing sinus tachycardia. Will obtain echo in the morning to evaluate for congestive heart failure, evaluate cardiac output. Last echo from 2018 showed preserved ejection fraction. No echo since in our charts Continue home oxazepam 15 mg 3 times a day for anxiety Continue home pantoprazole 40 mg daily for GERD Continue levothyroxine 100 mcg daily for hypothyroid, TSH pending. Hemoglobin 12.7, no signs of anemia. Kidney function normal with BUN 13, creatinine 0.8. CO2 chronically elevated at 31. Repeat CBC, CMP, magnesium ordered for the morning. Full code Regular Lovenox 40 mg daily
--- NOTE | 2023-08-25 20:51 | ECG_ITS ---
APPROVED REPORT Exam: Resting ECG HR:143 bpm ECG Measurements Heart Rate 143 AXES DC 150 P 99 QRSd 84 QRS 93 QT 341 T 92 QTc 424 Conclusion SINUS TACHYCARDIA BORDERLINE RIGHT AXIS DEVIATION [QRS AXIS > 90] NONSPECIFIC T-WAVE ABNORMALITY Electronically signed by : ROLY COOK, 08/26/2023 03:24:15
[2023-08-25 20:58] LABS: Troponin I 0.01 ng/ml (0.00-0.034)
--- NOTE | 2023-08-25 20:58 | PC.NURSE ---
report given to GIANFRANCO Yoder
--- NOTE | 2023-08-25 21:18 | PC.NURSE ---
rounded on pt, no questions or concerns at this time. hooked pt back to vitals machine.
--- NOTE | 2023-08-25 21:25 | PC.NURSE ---
pt arrived to floor at this time
[2023-08-25] MEDS: ENOXAPARIN 40MG/0.4ML SYRINGE 40 MG SQ (23:11)
[2023-08-25 23:54] LABS: Troponin I 0.02 ng/ml (0.00-0.034)
[2023-08-26] VITALS (8 sets, daily range): BP systolic 121–129; BP diastolic 69–76; PULSE 75–129; RESP 16–26; TEMP 36.4–36.6; O2SAT 90–95; BMI 29.8
--- NOTE | 2023-08-26 00:55 | CA_ITS ---
APPROVED REPORT EXAM: Comprehensive 2D, Doppler, and color-flow Echocardiogram Torpedo Worker: MADIHA Ralph, RVS Ht: 5 ft 5 in Wt: 191lbs BSA: 1.94 HR: 131 bpm BP: 149/80 mmHg Rhythm: Tachycardia Indications: COPD exacerbation, SOA, Tachycardia, Anxiety, Exsmoker Echo Enhancing Agent Comments: Patient seated upright/supine throughout exam Poor acoustic properties throughout exam 2D Dimensions LA Volume 32.70 mL LA Volume Index 16.40 mL/m2 (M/F) 16-34 M-Mode Dimensions RVDd 2.08 cm (0.9-2.6) LA Diam 2.76 cm (1.9-4.0) LVDd 4.39 cm (3.5-5.7) LVDs 3.05 cm (3.5-5.7) IVSd 1.07 cm (0.6-1.1) PWd 0.80 cm (0.6-1.1) EF (Teich) 58.30% FS 30.50% EDV (Teich) 87.20 mL TAPSE 1.57 (<1.7) ESV (Teich) 36.40 mL LV Diastology E Decel Time 93 (160-240 msec) E/A Ratio 1.63 MED A' 10.50 cm/s Aortic Valve SHAHAB Index 1.31 cm2/m2 AoV Peak Sajan. 106.0 (50-130 cm/s) AO Peak GR. 4.50 mmHg AO Mean GR. 2.20 (<5 mmHg) AO VTI 15.0 (18-25 cm) SHAHAB (VTI) 2.60 (2.5-4.5 cm2) Mitral Valve MV A Velocity 69.0 (40-130 cm/s) E/A Ratio 1.63 Pulmonary Valve PV Peak Velocity 89.0 (50-150 cm/s) Tricuspid Valve TR P. Velocity 229.00 cm/s RAP Estimate 10.00 mmHg RVSP 31.00 mmHg Left Ventricle The left ventricle is normal size. The left ventricular systolic function is normal. The left ventricular ejection fraction is within the normal range. There is increased LV wall thickness. There is normal LV segmental wall motion. The left ventricular diastolic function is normal. LVEF is 55%. Right Ventricle The right ventricle is difficult to visualize, but overall appears normal in size and function. There is increased RV wall thickness. Atria The left atrium size is normal. The right atrium size is normal. Color Doppler assessment across the interatrial septum is not performed. Aortic Valve The aortic valve opens well. There is no aortic valvular stenosis. No aortic regurgitation is present. Mitral Valve The mitral valve is normal in structure. No evidence of mitral valve stenosis. Trace mitral regurgitation. Tricuspid Valve The tricuspid valve leaflets are thin and pliable. Trace tricuspid regurgitation. There is insufficient TR jet to estimate RVSP. Pulmonic Valve The pulmonary valve is grossly normal in structure. Trace pulmonic regurgitation. Great Vessels The aortic root is normal in size. The ascending aorta is not well visualized. The IVC is not well visualized. Pericardium There is a small-sized anterior pericardial effusion along the RV free wall. The effusion measures approximately 0.6 cm in diastole. There is slight invagination of the RA and RV in systole and diastole, respectively. The transmitral respirophasic variation is borderline increased. Echo features are inconclusive for tamponade. Other Information Study Quality: Technically Difficult Conclusion Technically difficult study due to inability to position patient. Normal biventricular systolic function. No significant valvular stenosis or regurgitation. Ssmall-sized anterior pericardial effusion along the RV free wall. The effusion measures approximately 0.6 cm in diastole. There is slight invagination of the RA and RV in systole and diastole, respectively. The transmitral respirophasic variation is borderline increased. Echo features are inconclusive for tamponade. In the setting of presence of pericardial effusion and right-sided chamber filling abnormalities, clinical correlation and further evaluation with serial TTEs is recommended. The cardiology consult team was notified of the findings in real-time immediately after the acquisition of the study images. Electronically signed by : Jasmine Rogers MD 08/26/2023 17:38:22
--- NOTE | 2023-08-26 03:00 | PC.NURSE ---
Dr. Larose notified of patients heart rate sustained in the 130s at rest. No new orders received at this time.
[2023-08-26] MEDS: IPRATROPIUM BROMIDE 0.5 MG/2.5ML SOLUTION IH ×2 (06:14→11:15)
[2023-08-26] MEDS: LEVALBUTEROL 1.25MG/3ML NEB 1.25 MG IH ×2 (06:14→11:15)
--- NOTE | 2023-08-26 06:52 | PC.NURSE ---
Patient has remained stable. Heart rate does increase to 130s with any exertion and patient becomes short of breath is bale to recover at rest. Dr. Larose is aware.
--- NOTE | 2023-08-26 08:48 | HMH.PHAINT1 ---
Pharmacy Intervention Comments: MEDICATION RECONCILIATION COMPLETED ON PATIENT USING EXTERNAL FILL HISTORY FROM PHARMACY AND SHON REPORT. -GONSALO JIMÉNEZ, ARNAVD
[2023-08-26 09:00] LABS: Basophils # 0.1 K/mm3 (0-0.2); Basophils % 0.7 % (0.1-2.0); Eosinophils # 0.1 K/mm3 (0.0-0.4); Eosinophils % 0.7 % (0.1-12.0); Hematocrit 39.2 % (37.0-47.0); Hemoglobin 12.5 g/dL (12.2-16.2); Lymphocytes # 1.3 K/mm3 (0.7-4.5); Lymphocytes % 15.9 % (10-50); Mean Corpuscular HGB Conc 31.9 g/dL (31.8-35.4); Mean Corpuscular Hemoglobin 29.7 pg (27.0-31.2); Mean Platelet Volume 7.9 fl (7.4-10.4); Monocytes # 0.6 K/mm3 (0.1-1.0); Monocytes % 6.8 % (1.7-9.3); Neutrophils # 6.2 K/mm3 (1.8-7.8); Neutrophils % 75.8 % (37.0-80.0); Platelet Count 303 K/mm3 (142-424); Red Blood Count 4.21 M/mm3 (4.20-5.40); Red Cell Distribution Width 13.7 % (11.5-17.5); White Blood Count 8.2 K/mm3 (4.8-10.8)
[2023-08-26 09:08] LABS: Chloride 101 mmol/L (98-107); Sodium 141 mmol/L (136-145)
[2023-08-26 09:09] LABS: Potassium 3.4 mmoL/L (3.5-5.1)
[2023-08-26 09:11] LABS: Alanine Aminotransferase 39 U/L (12-78); Albumin/Globulin Ratio 1.2 (1.1-1.8); Alkaline Phosphatase 78 U/L (38-126); Anion Gap 10.4 mEq/L (5-15); Aspartate Amino Transferase 45 U/L (14-36); Bilirubin,Total 0.3 mg/dl (0.2-1.3); Blood Urea Nitrogen 12 mg/dl (7-17); Carbon Dioxide 33 mmol/L (22.0-30.0); Creatinine Clearance Estimated 60 mL/min (50-200); Estimated Glomerular Filt Rate 69 ml/min (>60); GFR (African American) 83 ML/MIN (>60); Globulin 3.3 g/dL (1.3-3.2); Glucose 117 mg/dl (74-100); Total Protein,Serum 7.3 g/dl (6.3-8.2)
[2023-08-26] MEDS: PANTOPRAZOLE 40MG TABLET 40 MG PO (09:13)
[2023-08-26] MEDS: LEVOTHYROXINE 100MCG (0.1MG) TAB 100 MCG PO (09:13)
[2023-08-26 09:41] LABS: Thyroid Stimulating Hormone 0.78 uIU/mL (0.465-4.68)
--- NOTE | 2023-08-26 10:13 | EXP.CARD.CON ---
History of Present Illness History of Present Illness Consult date: 08/26/23 Chief complaint: shortness of breath History of present illness: Hospitalist note: Ms. Casper is an 83-year-old female history of COPD, chronic oxygen therapy, anxiety disorder who presented with over a week of fever and chills. Reports cough and shortness of breath. Last fever this past Tuesday. No nausea or vomiting. Tolerating p.o. intake. Last bowel movement yesterday. History of chronic anemia on iron supplementation per her report. [place] that she might be anemic and that is why she was more weak and her heart was racing. Has had increase her oxygen from 3 L to 4 L at home. Wears it continuously. Saw her primary care doctor in [facility] today who gave her a steroid shot. On presentation to the ER, states her had similar symptoms preceding hers. Workup in the ER with SIRS criteria (tachycardia and tachypnea). White cell count normal. Chest CT unremarkable. Medicine was consulted for monitoring overnight and serial labs given patient's abnormal vitals. Of note, does have anxiety and missed at least 1 dose today of her oxazepam. On evaluation to the floor, patient appears alert and oriented. In no acute distress. Heart rate in the 90s. On 3 to 4 L. No respiratory distress on exam. Family at bedside. Asking if she might be able to go home in the morning. Cardiology note: 83-year-old white female with past medical history of COPD on chronic oxygen therapy and anxiety presented to emergency department with complaints of worsening shortness of breath, cough, subjective fever and chills x 1 week. Patient was admitted for observation due to meeting SIRS criteria for tachycardia and tachypnea. Cardiology was asked to evaluate for tachycardia. Upon presentation to emergency department patient was noted to be in sinus tachycardia at a rate of 143. Of note patient did receive a steroid injection yesterday by primary care provider for COPD exacerbation per family at bedside. Patient did undergo a CTA of chest which was negative for bilateral PE but did show moderate emphysema. Labs as follow: WBC 8.2, hemoglobin 12.5, platelet count 303, sodium 141, potassium 3.4, creatinine 0.8, troponin negative. Patient reports she is going to leave the hospital AMA. Echocardiogram is pending. Patient remains sinus tach in the 130s. Patient denies chest pain. [facility] Disclaimer: The information contained in this section may have been updated after the patient was seen, as this information can be updated by other users. Medical History Hypothyroidism Anxiety History of COVID-19 COPD (chronic obstructive pulmonary disease) Surgical History Hx of tubal ligation Family History Other No significant family history Social History Smoking Status: Former smoker alcohol intake: never current occupational status: retired Travel in the last 8 weeks: None household members: spouse housing: house marital status: education level: high school service: No residential: No caffeine: No Review of Systems Review of Systems Review of systems:: pertinent systems reviewed and negative unless documented below Constitutional Comments: Reports fever and chills at home *Cardiovascular Cardiovascular: Denies chest pain and Reports dyspnea *Respiratory Respiratory: Reports cough and Reports dyspnea Exam Data for Last 24 hours Vital signs and Labs for Last 24 Hours: Temp Pulse Resp BP Pulse Ox O2 Del Method O2 Flow Rate 97.6 F 129 H 16 125/76 90 L Nasal Cannula 4 08/26/23 08:00 08/26/23 08:00 08/26/23 08:00 08/26/23 08:00 08/26/23 08:00 08/26/23 08:00 08/26/23 08:00 Laboratory Results - last 24 hr 08/25/23 16:50: WBC 5.5, RBC 4.21, Hgb 12.7, Hct 39.3, MCV 93.3, MCH 30.3, MCHC 32.5, RDW 13.8, Plt Count 297, MPV 8.3, Neut % (Auto) 87.6 H, Lymph % (Auto) 9.9 L, [place] % (Auto) 1.9, Eos % (Auto) 0.2, Baso % (Auto) 0.4, Neut # (Auto) 4.8, Lymph # (Auto) 0.5 L, [place] # (Auto) 0.1, Eos # (Auto) 0.0, Baso # (Auto) 0.0, Total Counted 100, Neutrophils % (Manual) 81 H, Band Neutrophils % 3.0, Lymphocytes % (Manual) 13, Atypical Lymphs % 2.0, Monocytes % (Manual) 1 L, Platelet Estimate Normal, RBC Morphology Normal, Hypochromasia 1+, D-Dimer 0.49, Sodium 140, Potassium 4.3, Chloride 100, Carbon Dioxide 31 H, Anion Gap 13.3, BUN 13, Creatinine 0.80, Estimated GFR 69, Est GFR ( Amer) 83, Glucose 127 H, Lactate 1.0, Calcium 9.5, Total Bilirubin 0.4, AST 37 H, ALT 29, Alkaline Phosphatase 93, Troponin I < 0.01, NT-Pro-B Natriuret Pep 138, Total Protein 7.8, Albumin 4.3, Globulin 3.5 H, Albumin/Globulin Ratio 1.2 08/25/23 16:59: Chlamy pneumoniae PCR TNP, Adenovirus (PCR) Not detected, B. pertussis DNA (PCR) TNP, Coronavirus OC43 (PCR) Not detected, Coronavirus HKU1 (PCR) Not detected, Coronavirus 229E (PCR) Not detected, SARS-CoV-2 (PCR) Not detected 08/25/23 16:59: SARS-CoV-2 (PCR) Not detected, Coronavirus NL63 (PCR) Not detected, Human Metapneumovir PCR Not detected, Influenza A (H1) PCR Not detected, Influ A (H1N1/09) PCR Not detected, Influenza A (H3) PCR Not detected, Influenza Type A (PCR) Not detected, Influenza A Untype (PCR) Not detected, Influenza Type B (PCR) Not detected 08/25/23 16:59: Influenza Type B (PCR) Not detected, M. pneumoniae (PCR) TNP, Parainfluenza 1 (PCR) Not detected, Parainfluenza 2 (PCR) Not detected, Parainfluenza 3 (PCR) Not detected, Parainfluenza 4 (PCR) Not detected, RSV (PCR) Not detected, Entero/Rhino (PCR) Not detected 08/25/23 17:07: VBG pH 7.39, VBG pCO2 48.6, VBG pO2 40.9 H, VBG HCO3 28.6, VBG Total CO2 30.1 H, VBG O2 Saturation 75.8 H, VBG Base Excess 3.6 H, VBG Lactic Acid 1.6 08/25/23 17:13: Blood Type O Positive, Antibody Screen Negative 08/25/23 20:15: Troponin I 0.01 08/25/23 23:23: Troponin I 0.02 08/26/23 08:40: WBC 8.2 D, RBC 4.21, Hgb 12.5, Hct 39.2, MCV 93.0, MCH 29.7, MCHC 31.9, RDW 13.7, Plt Count 303, MPV 7.9, Neut % (Auto) 75.8, Lymph % (Auto) 15.9, [place] % (Auto) 6.8, Eos % (Auto) 0.7, Baso % (Auto) 0.7, Neut # (Auto) 6.2, Lymph # (Auto) 1.3, [place] # (Auto) 0.6, Eos # (Auto) 0.1, Baso # (Auto) 0.1, Sodium 141, Potassium 3.4 L D, Chloride 101, Carbon Dioxide 33 H, Anion Gap 10.4, BUN 12, Creatinine 0.80, Estimated Creat Clear 60, Estimated GFR 69, Est GFR ( Amer) 83, Glucose 117 H, Calcium 9.0, Magnesium 2.0, Total Bilirubin 0.3, AST 45 H, ALT 39 D, Alkaline Phosphatase 78, Total Protein 7.3, Albumin 4.0, Globulin 3.3 H, Albumin/Globulin Ratio 1.2, TSH 0.78 I & O for Last 24 hours: Intake & Output 08/23/23 08/24/23 08/25/23 08/26/23 23:59 23:59 23:59 23:59 Intake Total 1220 / 1220 Output Total 0 / 0 0 / 0 Balance 0 / 860 1220 / 1220 Weight 190 lb 3 oz 190 lb 3.014 oz Constitutional Constitutional: no acute distress *Routine Respiratory Exam Respiratory: Present wheezes and symmetric chest movement; Absent rhonchi *Routine Cardiovascular Exam Cardiovascular: Present RRR, Normal S1, Normal S2 and tachycardia *Routine Abdominal Exam Abdominal: Present soft and normoactive bowel sounds; Absent tenderness *Routine Extremities Exam Extremities: Present full ROM and normal capillary refill; Absent edema *Routine Skin Exam Skin: Present intact, dry and warm Detailed Neck Exam: Thyroids Thyroid: Absent bruit Meds Home Medications and Allergies Home Medications Medication Instructions Recorded Confirmed Type fluticasone fur. 100 mcg-umeclid 1 puff inhalation DAILY COPD 02/03/21 08/26/23 History 62.5 mcg-vilant 25 mcg inhalat.powder levalbuterol HCl 1.25 mg/3 mL 1.25 mg inhalation Q8HP PRN 02/03/21 08/26/23 History solution for nebulization Shortness Of Breath levothyroxine 100 mcg tablet 100 mcg PO DAILY thyroid 02/03/21 08/26/23 History roflumilast 250 mcg tablet 500 mcg PO DAILY COPD 02/03/21 08/26/23 History pantoprazole 40 mg tablet,delayed 40 mg PO DAILY 30 days #30 tabs 07/16/22 08/26/23 Rx release oxazepam 15 mg capsule 15 mg PO TID Anxiety 08/25/23 08/26/23 History amoxicillin 500 mg capsule 500 mg PO BID Infection 08/26/23 08/26/23 History New Prescriptions to Start Prescriptions: Allergies Allergy/AdvReac Type Severity Reaction Status Date / Time codeine [CODEINE] Allergy Mild Verified 09/16/22 08:17 Sulfa (Sulfonamide Allergy Mild Verified 09/16/22 08:17 Antibiotics) [SULFA (SULFONAMIDE ANTIBIOTICS)] Assessment and Plan *Assessment and plan (1) SIRS (systemic inflammatory response syndrome): Status: Acute Category: Medical Code(s): R65.10 - Systemic inflammatory response syndrome (SIRS) of non-infectious origin without acute organ dysfunction (2) Acute dyspnea: Status: Acute Category: Medical Code(s): R06.00 - Dyspnea, unspecified (3) Tachycardia: Status: Acute Category: Medical Code(s): R00.0 - Tachycardia, unspecified (4) Chronic hypoxemic respiratory failure: Status: Chronic Category: Medical Code(s): J96.11 - Chronic respiratory failure with hypoxia (5) COPD (chronic obstructive pulmonary disease): Status: Chronic Category: Medical Code(s): J44.9 - Chronic obstructive pulmonary disease, unspecified Plan SIRS. Criteria met due to tachycardia tachypnea-no source of infection identified Acute on chronic COPD exacerbation Chronic hypoxic respiratory failure Tachycardia status post steroid injection -CTA chest negative for bilateral PE but does show moderate emphysema emphysema -Troponin is negative -EKG is negative for acute ischemic changes, only shows sinus tachycardia -Will give a one-time dose Lopressor 2.5 mg IV -Acceptable heart rate less than 120 while receiving DuoNebs and steroids. -Echocardiogram shows a normal ejection fraction with concern for a small pericardial effusion with RV invagination/partial collapse. Cardiology recommends giving patient 500 mL normal saline bolus and repeating a limited echo on Tuesday morning to reassess. Patient reports she is leaving hospital and does not want to be here any longer. Discussed the risks associated with leaving the hospital early and strongly advised patient to remain in hospital over the weekend. If patient does decide to leave the hospital, please have her follow-up in the cardiology clinic on Tuesday so that we can repeat a limited echo. CV summary 08/26/2023: Preliminary echo report shows a small pericardial effusion with concern for RV invagination/partial collapse. Recommend patient stays in hospital over the weekend and received a 500 normal saline bolus x 1 with a repeat limited echo performed on Tuesday to reassess. If patient does choose to leave the hospital AGAINST MEDICAL ADVICE please have her follow-up in cardiology clinic on Tuesday so that we can obtain a repeat limited echo.
[2023-08-26] MEDS: METOPROLOL TARTRATE 5MG/5ML VIAL 2.5 MG IV (10:30)
[2023-08-26] MEDS: 0.9 % SODIUM CHLORIDE 1000ML 500 ML 999 ML IV (13:14)
--- NOTE | 2023-08-26 14:13 | EXP.EVENT.NO ---
called by RN to come to see patient as patient is asking to leave AMA, per Cardiology patient needs to stay in hospital due to pericardial effusion. counselled patient agains leaving AMA and risks, patient and family at bedside verbalized.
--- NOTE | 2023-08-26 14:47 | PC.NURSE ---
Patient stated wanting to leave. Cardiology spoke to patient after her echo and stated finding fluid around her heart and wanting to keep her over the weekend. Patient stated My mind is made up, I'm going home . Michelle Wheeler talked to patient and patient stil refusing to stay. Dr. Mcneill spoke to Patient. Patient still refusing to stay. Patient continued to state that she was exhausted and just wanted to go home. Patient offered medications to help her sleep, patient refused. Patient left AMA.
--- NOTE | 2023-08-26 16:21 | EXP.PN ---
Subjective *Date: 08/26/23 *Time: 16:21 Interval history: patient was seen and evaluated at the bedside. No reported acute events overnight, denies chest pain, shortness of breath, nausea, vomiting, abdominal pain. Exam Data for Last 24 hours Vital signs and Labs for Last 24 Hours: Temp Pulse Resp BP Pulse Ox O2 Del Method O2 Flow Rate 97.8 F 120 H 26 H 124/69 93 L Nasal Cannula 4 08/26/23 11:29 08/26/23 12:00 08/26/23 11:08/26/23 11:08/26/23 11:29 08/26/23 11:30 08/26/23 11:30 Laboratory Results - last 24 hr 08/25/23 16:50: WBC 5.5, RBC 4.21, Hgb 12.7, Hct 39.3, MCV 93.3, MCH 30.3, MCHC 32.5, RDW 13.8, Plt Count 297, MPV 8.3, Neut % (Auto) 87.6 H, Lymph % (Auto) 9.9 L, [place] % (Auto) 1.9, Eos % (Auto) 0.2, Baso % (Auto) 0.4, Neut # (Auto) 4.8, Lymph # (Auto) 0.5 L, [place] # (Auto) 0.1, Eos # (Auto) 0.0, Baso # (Auto) 0.0, Total Counted 100, Neutrophils % (Manual) 81 H, Band Neutrophils % 3.0, Lymphocytes % (Manual) 13, Atypical Lymphs % 2.0, Monocytes % (Manual) 1 L, Platelet Estimate Normal, RBC Morphology Normal, Hypochromasia 1+, D-Dimer 0.49, Sodium 140, Potassium 4.3, Chloride 100, Carbon Dioxide 31 H, Anion Gap 13.3, BUN 13, Creatinine 0.80, Estimated GFR 69, Est GFR ( Amer) 83, Glucose 127 H, Lactate 1.0, Calcium 9.5, Total Bilirubin 0.4, AST 37 H, ALT 29, Alkaline Phosphatase 93, Troponin I < 0.01, NT-Pro-B Natriuret Pep 138, Total Protein 7.8, Albumin 4.3, Globulin 3.5 H, Albumin/Globulin Ratio 1.2 08/25/23 16:59: Chlamy pneumoniae PCR TNP, Adenovirus (PCR) Not detected, B. pertussis DNA (PCR) TNP, Coronavirus OC43 (PCR) Not detected, Coronavirus HKU1 (PCR) Not detected, Coronavirus 229E (PCR) Not detected, SARS-CoV-2 (PCR) Not detected 08/25/23 16:59: SARS-CoV-2 (PCR) Not detected, Coronavirus NL63 (PCR) Not detected, Human Metapneumovir PCR Not detected, Influenza A (H1) PCR Not detected, Influ A (H1N1/09) PCR Not detected, Influenza A (H3) PCR Not detected, Influenza Type A (PCR) Not detected, Influenza A Untype (PCR) Not detected, Influenza Type B (PCR) Not detected 08/25/23 16:59: Influenza Type B (PCR) Not detected, M. pneumoniae (PCR) TNP, Parainfluenza 1 (PCR) Not detected, Parainfluenza 2 (PCR) Not detected, Parainfluenza 3 (PCR) Not detected, Parainfluenza 4 (PCR) Not detected, RSV (PCR) Not detected, Entero/Rhino (PCR) Not detected 08/25/23 17:07: VBG pH 7.39, VBG pCO2 48.6, VBG pO2 40.9 H, VBG HCO3 28.6, VBG Total CO2 30.1 H, VBG O2 Saturation 75.8 H, VBG Base Excess 3.6 H, VBG Lactic Acid 1.6 08/25/23 17:13: Blood Type O Positive, Antibody Screen Negative 08/25/23 20:15: Troponin I 0.01 08/25/23 23:23: Troponin I 0.02 08/26/23 08:40: WBC 8.2 D, RBC 4.21, Hgb 12.5, Hct 39.2, MCV 93.0, MCH 29.7, MCHC 31.9, RDW 13.7, Plt Count 303, MPV 7.9, Neut % (Auto) 75.8, Lymph % (Auto) 15.9, [place] % (Auto) 6.8, Eos % (Auto) 0.7, Baso % (Auto) 0.7, Neut # (Auto) 6.2, Lymph # (Auto) 1.3, [place] # (Auto) 0.6, Eos # (Auto) 0.1, Baso # (Auto) 0.1, Sodium 141, Potassium 3.4 L D, Chloride 101, Carbon Dioxide 33 H, Anion Gap 10.4, BUN 12, Creatinine 0.80, Estimated Creat Clear 60, Estimated GFR 69, Est GFR ( Amer) 83, Glucose 117 H, Calcium 9.0, Magnesium 2.0, Total Bilirubin 0.3, AST 45 H, ALT 39 D, Alkaline Phosphatase 78, Total Protein 7.3, Albumin 4.0, Globulin 3.3 H, Albumin/Globulin Ratio 1.2, TSH 0.78 I & O for Last 24 hours: Intake & Output 08/23/23 08/24/23 08/25/23 08/26/23 23:59 23:59 23:59 23:59 Intake Total 1370 / 1370 Output Total 0 / 0 0 / 0 Balance 0 / 860 1370 / 1370 Weight 86.268 kg 86.268 kg Constitutional Constitutional: no acute distress *Routine HEENT Exam Head: Present normocephalic Eye: Present EOMI and PERRL ENT: Present mucous membranes moist *Routine Neck Exam Neck: Present supple; Absent lymphadenopathy *Routine Respiratory Exam Respiratory: Present CTA bilaterally and diminished air movement *Routine Cardiovascular Exam Cardiovascular: Present RRR *Routine Abdominal Exam Abdominal: Present soft and normoactive bowel sounds; Absent tenderness *Routine Extremities Exam Extremities: Absent cyanosis, clubbing or edema *Routine Skin Exam Skin: Present warm; Absent rash *Routine Neurological Exam Neurological: Present alert and oriented X3 Assessment and Plan *Assessment and plan (1) SIRS (systemic inflammatory response syndrome): Status: Acute Category: Medical Code(s): R65.10 - Systemic inflammatory response syndrome (SIRS) of non-infectious origin without acute organ dysfunction (2) Acute dyspnea: Status: Acute Category: Medical Code(s): R06.00 - Dyspnea, unspecified (3) Tachycardia: Status: Acute Category: Medical Code(s): R00.0 - Tachycardia, unspecified (4) Chronic hypoxemic respiratory failure: Status: Chronic Category: Medical Code(s): J96.11 - Chronic respiratory failure with hypoxia (5) COPD (chronic obstructive pulmonary disease): Status: Chronic Category: Medical Code(s): J44.9 - Chronic obstructive pulmonary disease, unspecified (6) Anxiety disorder: Status: Chronic Category: Medical Code(s): F41.9 - Anxiety disorder, unspecified (7) TIA (transient ischemic attack): Status: Acute Category: Medical Code(s): G45.9 - Transient cerebral ischemic attack, unspecified (8) Hypothyroidism: Status: Chronic Category: Medical Code(s): E03.9 - Hypothyroidism, unspecified Plan Patient is a 83-year-old female who presented to hospital due to chills and fever, shortness of breath. Assessment and plan Tachycardia, tachypnea suspect due to pericardial effusion, early tamponade COPD Echo performed, per cardiology patient has pericardial effusion with RV invagination and partial collapse, EF within normal limits Cardiology consulted recommend to continue to monitor patient, IV fluid bolus, reassess with limited echo on Tuesday Chronic hypoxic respiratory failure COPD Continue supplemental oxygen, home trilogy inhaler Hypothyroidism Anxiety -Resume home medications DVT prophylaxis-Lovenox
--- NOTE | 2023-08-26 16:24 | PC.NURSE ---
documented on the wrong patient
--- NOTE | 2023-08-26 16:29 | PC.NURSE ---
1600 Vitals and SRNA check was documented on wrong pt
--- NOTE | 2023-09-05 16:22 | EXP.DC.SUM ---
General Admission date:: 08/25/23 Discharge date: 08/26/23 HPI HPI HPI: Ms. Casper is an 83-year-old female history of COPD, chronic oxygen therapy, anxiety disorder who presented with over a week of fever and chills. Reports cough and shortness of breath. Last fever this past Tuesday. No nausea or vomiting. Tolerating p.o. intake. Last bowel movement yesterday. History of chronic anemia on iron supplementation per her report. [place] that she might be anemic and that is why she was more weak and her heart was racing. Has had increase her oxygen from 3 L to 4 L at home. Wears it continuously. Saw her primary care doctor in [facility] today who gave her a steroid shot. On presentation to the ER, states her had similar symptoms preceding hers. Workup in the ER with SIRS criteria (tachycardia and tachypnea). White cell count normal. Chest CT unremarkable. Medicine was consulted for monitoring overnight and serial labs given patient's abnormal vitals. Of note, does have anxiety and missed at least 1 dose today of her oxazepam. On evaluation to the floor, patient appears alert and oriented. In no acute distress. Heart rate in the 90s. On 3 to 4 L. No respiratory distress on exam. Family at bedside. Asking if she might be able to go home in the morning. Hospital Course Hospital Course Hospital Course: Patient is a 83-year-old female who presented to hospital due to chills and fever, shortness of breath. Assessment and plan Tachycardia, tachypnea suspect due to pericardial effusion, early tamponade COPD Echo performed, per cardiology patient has pericardial effusion with RV invagination and partial collapse, EF within normal limits Cardiology consulted recommend to continue to monitor patient, IV fluid bolus, reassess with limited echo on Tuesday Patient left AMA Exam Data for Last 24 hours Vital signs and Labs for Last 24 Hours: Temp Pulse Resp BP Pulse Ox O2 Del Method O2 Flow Rate 97.8 F 120 H 26 H 124/69 93 L Nasal Cannula 4 08/26/23 11:29 08/26/23 12:00 08/26/23 11:29 08/26/23 11:29 08/26/23 11:29 08/26/23 11:30 08/26/23 11:30 DS: Diagnosis Discharge Diagnosis (1) SIRS (systemic inflammatory response syndrome): Status: Acute Code(s): R65.10 - Systemic inflammatory response syndrome (SIRS) of non-infectious origin without acute organ dysfunction (2) Acute dyspnea: Status: Acute Code(s): R06.00 - Dyspnea, unspecified (3) Tachycardia: Status: Acute Code(s): R00.0 - Tachycardia, unspecified (4) Chronic hypoxemic respiratory failure: Status: Chronic Code(s): J96.11 - Chronic respiratory failure with hypoxia (5) COPD (chronic obstructive pulmonary disease): Status: Chronic Code(s): J44.9 - Chronic obstructive pulmonary disease, unspecified (6) Anxiety disorder: Status: Chronic Code(s): F41.9 - Anxiety disorder, unspecified (7) TIA (transient ischemic attack): Status: Acute Code(s): G45.9 - Transient cerebral ischemic attack, unspecified (8) Hypothyroidism: Status: Chronic Code(s): E03.9 - Hypothyroidism, unspecified Meds Home Medications and Allergies Home Medications Medication Instructions Recorded Confirmed Type fluticasone fur. 100 mcg-umeclid 1 puff inhalation DAILY COPD 02/03/21 08/26/23 History 62.5 mcg-vilant 25 mcg inhalat.powder levalbuterol HCl 1.25 mg/3 mL 1.25 mg inhalation Q8HP PRN 02/03/21 08/26/23 History solution for nebulization Shortness Of Breath levothyroxine 100 mcg tablet 100 mcg PO DAILY thyroid 02/03/21 08/26/23 History roflumilast 250 mcg tablet 500 mcg PO DAILY COPD 02/03/21 08/26/23 History oxazepam 15 mg capsule 15 mg PO TID Anxiety 08/25/23 08/26/23 History amoxicillin 500 mg capsule 500 mg PO BID Infection 08/26/23 08/26/23 History New Prescriptions to Start Prescriptions: Allergies Allergy/AdvReac Type Severity Reaction Status Date / Time codeine [CODEINE] Allergy Mild Verified 08/29/23 10:18 Sulfa (Sulfonamide Allergy Mild Verified 08/29/23 10:18 Antibiotics) [SULFA (SULFONAMIDE ANTIBIOTICS)] Discharge Plan Disposition Patient Disposition: Left Against Medical Advice Providers Admit Provider: America Mcneill Attending Provider: America Mcneill
== END 2023-08-26 15:10 | disposition left against medical advice (07) ==
LOC: ER 20:25 → 2ND 20:52
PROVIDERS: Internal Medicine Adolescent Medicine; Admitting Provider Internal Medicine; Emergency Provider Student in an Organized Health Care Education/Training Program; PCP Internal Medicine; Visit Provider Internal Medicine
DX: R06.02 Shortness of breath; R00.0 Tachycardia, unspecified; J96.11 Chronic respiratory failure with hypoxia; J44.9 Chronic obstructive pulmonary disease, unspecified; F41.9 Anxiety disorder, unspecified; G45.9 Transient cerebral ischemic attack, unspecified; E03.9 Hypothyroidism, unspecified; Z99.81 Dependence on supplemental oxygen; I31.39 Other pericardial effusion (noninflammatory)
CPT/HCPCS: 36415; 71045; 71275; 80053; 82803; 83605; 83735; 83880; 84443; 84484; 85007; 85025; 85378; 86850; 87040; 87632; 87635; 87636; 93005; 93306; 94640; 99291; G0378; Q9967

== ENCOUNTER 2023-08-29 11:43 | Outpatient (CLI) | payer MEDICARE, BC, SELFPAY ==
--- NOTE | 2023-08-29 11:44 | CA_ITS ---
APPROVED REPORT EXAM: Limited 2D Echocardiogram Grinder Operator Automatic: Bell Ordoñez CRT Ht: 5 ft 5 in Wt: 131lbs BSA: 1.65 BP: 130/80 mmHg Indications: Pericardial effusion Other Information Study Quality: Technically Difficult Conclusion This is a limited TTE to evaluate for pericardial effusion. Limited windows were obtained. Technically difficult study. There is a small sized, anterior pericardial effusion present. The largest pocket measures 0.6 cm in diastole. There is no evidence of significant transvalvular respirophasic variation. There is a slight inward invagination of the RV during diastole. Compared to prior study from 08/26/2023, the pericardial effusion size and RV morphology are unchanged. Electronically signed by : Jasmine Rogers MD 08/29/2023 23:44:08
== END 2023-08-29 23:59 ==
PROVIDERS: PCP Internal Medicine; Visit Provider Physician Assistant
DX: I31.39 Other pericardial effusion (noninflammatory) (principal); R06.00 Dyspnea, unspecified
CPT/HCPCS: 93308

== ENCOUNTER 2023-10-18 15:47 | Outpatient (POV) | payer MEDICARE, BC, SELFPAY | END 2023-10-18 23:59 | disposition home or self-care (01) | LOC: SC 15:47 | PROVIDERS: PCP Internal Medicine; Visit Provider Dermatology | DX: Z00.00 Encounter for general adult medical examination without abnormal findings (principal) ==

== ENCOUNTER 2024-01-11 16:27 | Outpatient (CLI) | payer MEDICARE, BC, SELFPAY ==
[2024-01-11 17:55] LABS: Alanine Aminotransferase 20 U/L (12-78); Albumin Level 3.9 g/dl (3.5-5.0); Albumin/Globulin Ratio 1.3 (1.1-1.8); Alkaline Phosphatase 70 U/L (38-126); Anion Gap 9.7 mEq/L (5-15); Aspartate Amino Transferase 28 U/L (14-36); Bilirubin,Total 0.3 mg/dl (0.2-1.3); Blood Urea Nitrogen 15 mg/dl (7-17); Calcium 9.4 mg/dl (8.4-10.2); Carbon Dioxide 36 mmol/L (22.0-30.0); Chloride 99 mmol/L (98-107); Estimated Glomerular Filt Rate 60 ml/min (>60); GFR (African American) 73 ML/MIN (>60); Glucose 67 mg/dl (74-100); Potassium 4.7 mmoL/L (3.5-5.1); Sodium 140 mmol/L (136-145); Total Protein,Serum 6.9 g/dl (6.3-8.2)
[2024-01-11 18:22] LABS: Thyroid Stimulating Hormone 0.52 uIU/mL (0.465-4.68)
== END 2024-01-11 23:59 | disposition home or self-care (01) ==
LOC: LAB.DROPOF 16:28
PROVIDERS: PCP Internal Medicine; Visit Provider Internal Medicine
DX: E03.9 Hypothyroidism, unspecified (principal); D64.9 Anemia, unspecified; I31.39 Other pericardial effusion (noninflammatory); Z86.73 Personal history of transient ischemic attack (TIA), and cerebral infarction without residual deficits
CPT/HCPCS: 80053; 84443; 85025

== ENCOUNTER 2024-02-20 15:04 | Outpatient (CLI) | payer MEDICARE, BC, SELFPAY ==
[2024-02-20 14:44] LABS: Basophils % 0.4 % (0.1-2.0); Eosinophils # 0.1 K/mm3 (0.0-0.4); Hematocrit 39.8 % (37.0-47.0); Hemoglobin 12.6 g/dL (12.2-16.2); Lymphocytes # 1.1 K/mm3 (0.7-4.5); Lymphocytes % 17.2 % (10-50); Mean Corpuscular HGB Conc 31.7 g/dL (31.8-35.4); Mean Corpuscular Hemoglobin 29.6 pg (27.0-31.2); Mean Corpuscular Volume 93.4 fl (81-99); Mean Platelet Volume 9.2 fl (7.4-10.4); Monocytes # 0.4 K/mm3 (0.1-1.0); Monocytes % 6.4 % (1.7-9.3); Neutrophils # 4.8 K/mm3 (1.8-7.8); Platelet Count 348 K/mm3 (142-424); Red Blood Count 4.27 M/mm3 (4.20-5.40); Red Cell Distribution Width 14.6 % (11.5-17.5); White Blood Count 6.5 K/mm3 (4.8-10.8)
[2024-02-20 15:09] LABS: Anion Gap 7.6 mEq/L (5-15); Blood Urea Nitrogen 11 mg/dl (7-17); Calcium 9.5 mg/dl (8.4-10.2); Carbon Dioxide 34 mmol/L (22.0-30.0); Chloride 101 mmol/L (98-107); Estimated Glomerular Filt Rate 69 ml/min (>60); GFR (African American) 83 ML/MIN (>60); Glucose 65 mg/dl (74-100); Potassium 4.6 mmoL/L (3.5-5.1); Sodium 138 mmol/L (136-145)
== END 2024-02-20 23:59 | disposition home or self-care (01) ==
LOC: LAB.DROPOF 15:04
PROVIDERS: PCP Internal Medicine; Visit Provider Internal Medicine
DX: K52.9 Noninfective gastroenteritis and colitis, unspecified (principal); D64.9 Anemia, unspecified
CPT/HCPCS: 80048; 85025

== ENCOUNTER 2024-08-21 16:45 | Outpatient (CLI) | payer MEDICARE, BC, SELFPAY ==
[2024-08-21 18:08] LABS: Basophils % 0.4 % (0.1-2.0); Eosinophils # 0.2 K/mm3 (0.0-0.4); Eosinophils % 2.2 % (0.1-12.0); Hematocrit 39.3 % (37.0-47.0); Hemoglobin 12.3 g/dL (12.2-16.2); Lymphocytes # 1.9 K/mm3 (0.7-4.5); Lymphocytes % 19.2 % (10-50); Mean Corpuscular HGB Conc 31.3 g/dL (31.8-35.4); Mean Corpuscular Hemoglobin 29.1 pg (27.0-31.2); Mean Corpuscular Volume 93.1 fl (81-99); Mean Platelet Volume 9.8 fl (7.4-10.4); Monocytes # 0.6 K/mm3 (0.1-1.0); Monocytes % 6.4 % (1.7-9.3); Neutrophils % 71.4 % (37.0-80.0); Platelet Count 410 K/mm3 (142-424); Red Blood Count 4.22 M/mm3 (4.20-5.40); Red Cell Distribution Width 13.9 % (11.5-17.5); White Blood Count 9.8 K/mm3 (4.8-10.8)
[2024-08-21 21:29] LABS: Alanine Aminotransferase 18 U/L (12-78); Albumin Level 4.7 g/dl (3.5-5.0); Albumin/Globulin Ratio 1.5 (1.1-1.8); Alkaline Phosphatase 81 U/L (38-126); Aspartate Amino Transferase 27 U/L (14-36); Bilirubin,Total 0.2 mg/dl (0.2-1.3); Blood Urea Nitrogen 11 mg/dl (7-17); Calcium 9.9 mg/dl (8.4-10.2); Carbon Dioxide 38 mmol/L (22.0-30.0); Chloride 97 mmol/L (98-107); Estimated Glomerular Filt Rate 60 ml/min (>60); GFR (African American) 73 ML/MIN (>60); Globulin 3.1 g/dL (1.3-3.2); Glucose 87 mg/dl (74-100); Sodium 141 mmol/L (136-145); Total Protein,Serum 7.8 g/dl (6.3-8.2)
[2024-08-21 22:01] LABS: Thyroid Stimulating Hormone 0.71 uIU/mL (0.465-4.68)
== END 2024-08-21 23:59 | disposition home or self-care (01) ==
LOC: LAB.DROPOF 08-22 14:24
PROVIDERS: PCP Internal Medicine; Visit Provider Internal Medicine
DX: D50.9 Iron deficiency anemia, unspecified (principal); E03.9 Hypothyroidism, unspecified; R60.9 Edema, unspecified
CPT/HCPCS: 80053; 84443; 85025

== ENCOUNTER 2024-09-24 12:45 | Outpatient (CLI) | payer MEDICARE, BC, SELFPAY ==
[2024-09-24 13:35] LABS: Basophils % 0.4 % (0.1-2.0); Eosinophils # 0.2 K/mm3 (0.0-0.4); Eosinophils % 1.9 % (0.1-12.0); Hematocrit 38.7 % (37.0-47.0); Hemoglobin 12.4 g/dL (12.2-16.2); Lymphocytes # 1.4 K/mm3 (0.7-4.5); Lymphocytes % 14.6 % (10-50); Mean Corpuscular Hemoglobin 29.7 pg (27.0-31.2); Mean Corpuscular Volume 92.6 fl (81-99); Mean Platelet Volume 10.2 fl (7.4-10.4); Monocytes # 0.5 K/mm3 (0.1-1.0); Monocytes % 5.1 % (1.7-9.3); Neutrophils # 7.4 K/mm3 (1.8-7.8); Neutrophils % 77.7 % (37.0-80.0); Nucleated Red Blood Cells # 0 10^3/uL; Nucleated Red Blood Cells % 0 %; Platelet Count 338 K/mm3 (142-424); Red Blood Count 4.18 M/mm3 (4.20-5.40); Red Cell Distribution Width 13.2 % (11.5-17.5); Red Cell Distribution Width-SD 44.8 fL; White Blood Count 9.6 K/mm3 (4.8-10.8)
[2024-09-24 14:26] LABS: Anion Gap 13.5 mEq/L (5-15); Blood Urea Nitrogen 17 mg/dl (7-17); Calcium 9.7 mg/dl (8.4-10.2); Carbon Dioxide 38 mmol/L (22.0-30.0); Chloride 97 mmol/L (98-107); Estimated Glomerular Filt Rate 69 ml/min (>60); GFR (African American) 83 ML/MIN (>60); Glucose 92 mg/dl (74-100); Potassium 5.5 mmoL/L (3.5-5.1); Sodium 143 mmol/L (136-145)
== END 2024-09-24 23:59 | disposition home or self-care (01) ==
LOC: LAB.DROPOF 09-25 14:58
PROVIDERS: PCP Internal Medicine; Visit Provider Internal Medicine
DX: I27.81 Cor pulmonale (chronic) (principal); R60.9 Edema, unspecified; D64.9 Anemia, unspecified
CPT/HCPCS: 80048; 85025

== ENCOUNTER 2024-10-19 13:44 | Emergency (ER) | payer MEDICARE, BC, SELFPAY ==
--- NOTE | 2024-10-19 13:48 | ECG_ITS ---
APPROVED REPORT Exam: Resting ECG HR:82 bpm ECG Measurements Heart Rate 82 AXES AR 134 P 79 QRSd 92 QRS 81 QT 341 T 63 QTc 380 Conclusion SINUS RHYTHM No acute STEMI. No significant changes from prior EKG Electronically signed by : ROLY COOK, 10/21/2024 11:35:59
[2024-10-19 14:01] VITALS: BP 130/70; PULSE 87; RESP 28; O2SAT 99
[2024-10-19 14:02] VITALS: BP 148/87; PULSE 121; RESP 17; TEMP 36.7; O2SAT 98; BMI 27.1
--- NOTE | 2024-10-19 14:02 | XR_ITS ---
FINAL REPORT CLINICAL HISTORY: sob COMPARISON: 08/25/2023 FINDINGS: A portable view of the chest was obtained. Cardiac and mediastinal silhouettes are within normal limits. Bilateral left greater than right interstitial opacities are once again noted, stable since the prior exam. There is no pleural effusion or pneumothorax. IMPRESSION: Bilateral left greater than right interstitial opacities, stable. No acute abnormality identified. Reviewed, Interpreted and Dictated by Jenni Voss MD Transcribed by Valentina Hartman Authenticated and [facility]
--- NOTE | 2024-10-19 14:02 | CT_ITS ---
FINAL REPORT TECHNIQUE: Thin section axial images are obtained through the abdomen and pelvis after intravenous contrast. Reconstruction images were obtained from the axial data. Exam was performed using dose reduction techniques. CLINICAL HISTORY: abd pain / swelling COMPARISON: None FINDINGS: LIVER: Homogeneous. Small cysts in the caudate lobe. GALLBLADDER/BILIARY SYSTEM: Gallbladder is present. Gallstones are noted. No biliary dilatation. SPLEEN: Unremarkable. PANCREAS: Unremarkable. ADRENALS: Unremarkable. KIDNEYS/URETERS/BLADDER: Right renal cyst. Focal atrophy involving the lower pole of the left kidney. No hydronephrosis. Unremarkable urinary bladder. GI TRACT: No small bowel obstruction or dilatation. Appendix not seen but no secondary signs of appendicitis. No acute colon abnormality. PELVIC ORGANS: Fibroids in the uterus. Endometrial cavity is too thickened for a postmenopausal patient. LYMPH NODES/RETROPERITONEUM/MESENTERY: No lymphadenopathy. No abdominal aortic aneurysm. ABDOMINAL WALL: The abdominal wall is intact. FREE FLUID: No ascites. BONES: No acute osseous abnormality. IMPRESSION: No acute abnormality in the abdomen or pelvis. Gallstones. Thickened endometrium for a postmenopausal patient. Consider ultrasound-guided biopsy given degree of thickness. Reviewed, Interpreted and Dictated by Jenni Vsos MD Transcribed by Rosita Kauffman Authenticated and . [facility]
--- NOTE | 2024-10-19 14:02 | CT_ITS ---
FINAL REPORT TECHNIQUE: Axial imaging of the chest is obtained after the administration of contrast. 3-D MIP reformatted images were also obtained and reviewed per PE protocol. This study was performed with techniques to keep radiation doses as low as reasonably achievable, (ALARA). Individualized dose reduction techniques using automated exposure control or adjustment of mA and/or kV according to the patient's size were employed. CLINICAL HISTORY: Shortness of breath COMPARISON: 08/25/2023 FINDINGS: The pulmonary arteries are well filled. There is no evidence of pulmonary embolus. There is no aortic dissection. Heart size is normal. There is no mediastinal, hilar, or axillary lymphadenopathy. Emphysematous changes are noted. There is granulomatous disease. The lungs are otherwise clear. There is no pleural or pericardial effusion. No acute osseous abnormality. IMPRESSION: No evidence of pulmonary embolism or aortic dissection. No acute abnormality. Reviewed, Interpreted and Dictated by Jenni Voss MD Transcribed by Rosita Kauffman Authenticated and [facility]
--- OUTSIDE RECORDS SUMMARY | 2024-10-19 14:07 | XMS_ITS | Data Portability ---
Author Organization DARLENE - FAIZA Cesar [facility] Address [address] [place] [address] [address] [place] [address] Assessment Encounter Date Assessment Date Assessment LastModified by Organization Details LastModified Time 09/07/2018 09/07/2018 RTC in 3 months. Not availab le 09/07/2018 12:15:19 12/07/2018 12/07/2018 RTC in 6 months. [email or web address] Not availab le 12/07/2018 11:17:02 05/29/2019 05/29/2019 RTC in 6 months. This note was transcribed with a combination of a scribe and voice recognition software. [email or web address] Not available 05/29/2019 10:37:11 11/21/2020 11/21/2020 Beba is a phone call follow-up of severe COPD. She's actually done very well over the past year between avoiding people due to scare of Covid 19 and taking her Trelegy and daliresp, she has not had any exacerbations. She continues on her oxygen. ? Visit today is being conducted via telephone only. Patient has expressed an understanding of this phone call as a visit and has consented. Patient is in the [facility]. 7 total minutes spent on phone communication and encounter with patient this encounter. [email or web address] Not available 11/21/2020 15:45:46 Plan of Treatment Reminders Order Date Submit Date Provider Last Modified By Organization Details Last Modified Time Details Appointments None recorded. Lab None recorded. Referral None recorded. Procedures None recorded. Surgeries None recorded. Imaging None recorded. Medication Orders roflumilas t 250 mcg tablet 2020 021 [facility], [facility]0 [facility] [address] [place], [id number], 1 15:49:15 Trelegy Ellipta 100 mcg-62.5 mcg-25 mcg powder for inhalation 2020 [facility], [address] [place] [address] [address] [place], [id number], 1 15:49:15 levalbuter ol 1.25 mg/3 mL solution for nebulizati on 2020 021 [facility], [address] [place] [address] [address] [place], [id number], 1 15:49:15 roflumilas t 250 mcg tablet 2018 019 [facility], [address] [place] [address] [address] [place], [id number], 9 10:32:48 Trelegy Ellipta 100 mcg-62.5 mcg-25 mcg powder for inhalation 2018 019 [facility], [address] [place] [address] [address] [place], [id number], 9 10:32:47 roflumilas t 500 mcg tablet 2018 019 [email or web address] [facility], [address] [place] [address] [address] [place], [id number], 1 15:41:02 Trelegy Ellipta 100 mcg-62.5 mcg-25 mcg powder for inhalation 2018 019 [facility], [address] [place] [address] [address] [place], [id number], 9 12:18:14 levalbuter ol 1.25 mg/3 mL solution for nebulizati on 2018 019 [email or web address] [facility], [address] [place] [address] [place], [id number], 9 09:41:54 Patient TargetsNo targets recorded. Patient Instructions Encounter Date Encounter Id Patient Instructions Last Modified By Organization Details Last Modified Time 03/08/2018 [id number] pulse oximetry* [email or web address] Not available 03/08/2018 11:41:34 chronic obstructive pulmonary disease (COPD): care instructions [email or web address] Not available 03/08/2018 11:41:34 learning about copd and how to prevent lung infections [email or web address] Not available 03/08/2018 11:41:34 Reason for Referral None Reported. Results Created Date Observation Date Name Description Value Unit Range Abnormal Flag Note LastModifiedBy Organization Detail LastModifiedTime Result Notes None recorded. Problems Name Problem SNOMED Code Status Onset Date Resolution Date Notes Provider Name and Address Organization Details Recorded Time Chronic obstructi ve pulmonary disease 35662063 Active 2015 From Automated Load;Provi timbo: Jesica Hopkins;Statu s: Active Not Available [facility] 6 08:41:07 Chronic hypoxemic respirato ry failure 715787156 Active 2018 MAU CHINCHILLA MD [address] [place] [address], [phone] , [facility] 9 12:12:12 Pulmonary emphysema 43885087 Active 2018 MAU CHINCHILLA MD [address] [place] [address], [phone] , [facility] 9 12:14:08 Severe chronic obstructi ve pulmonary disease 613806447 Active 2018 MAU CHINCHILLA MD [address] [place] [address], [phone] , [facility] 9 12:14:09 Problem Notes None recorded. Procedures Surgical History Date Name Laterality Status Provider Name and Address Organization Details Recorded Time 12/08/19 19 Demonstration Aerosol/Generator /Nebulizer/Optich morro completed Jessica Burkett [facility] 12/07/2018 11:23:05 07/05/19 17 Spirometry completed JESICA HOPKINS MD [address] [place], [address], [facility] 07/05/2016 16:08:34 Imaging Results None recorded. Procedure Notes None recorded. Medical Equipment None Reported. Allergies Allergen ID Allergen Name Allergen Category Reaction Reaction Severity Criticality Documentation Date Start Date Code Code System Note Provider Name and Address Organization Details Recorded Time 030388 codeine medicatio n Not available Not available Not available 05/07/20162013 2670 RxNorm Comme nt: Creat ed By: Jeanine SlaughterCrea keenan Date: 05/31 9:28: 21 AM; Not Available [facility] 6 09:29:41 001419 Substance with sulfonami de structure and antibacte rial mechanism of action (substanc e) medicatio n nausea Not available Not available 05/07/20162012 42809 8003 SNOMED React ion: NAUSE A; Comme nt: Creat ed By: Jeanine Glasgow keenan Date: 03/29 12:30 :20 PM; Not Available [facility] 6 10:02:38 Medications Name Sig Start Date Stop Date Status Note LastModified by Organization Details LastModified Time prednison e 10 mg tablet Take 4 tablets every day by oral route for 5 days. 01/25 completed Not Available Not Available Not Available oxazepam 10 mg capsule Take 1 capsule 3 times a day by oral route. active Not Available Not Available No t Available prednison e 20 mg tablet tabs 2 daily for 5 days 08/19 completed Not Available Not Available Not Available DuoNeb 0.5 mg-3 mg(2.5 mg base)/3 mL solution for nebulizat ion Four times a day 2014 active Instruct ions: dx 496;Freq uency: qid;Medi cation Descript ion: albutero l-ipratr opium; Dosage:1 ; Route:in halation ; refills: 5; Quantity :60 solution Not Available Not Available Not Available aspirin 81 mg tablet Daily active Duration : 30 days;Leonidas quency: daily;Me dication Descript ion: aspirin; Dosage:1 ; Route:or al; refills: 0; Quantity :30 tablet Not Available Not Available Not Available levalbute rol 1.25 mg/3 mL solution for nebulizat ion INHALE THE CONTENTS OF 1 VIAL VIA NEBULIZE R EVERY 8 HOURS 2020 active Not Available Not Available Not Avai lable doxycycli ne hyclate 100 mg tablet Take 1 tablet twice a day by oral route as directed for 10 days. 08/19 completed Not Available Not Available Not Available Ventolin HFA 90 mcg/actua tion aerosol inhaler INHALE 2 PUFFS BY MOUTH EVERY 4 HOURS NEEDED * SHAKE WELL BEFORE USE * 2019 active Not Available Not Available Not Avai lable iron ?mg bid active Not Available Not Avail able Not Available magnesium malate Daily 07/05 completed Frequenc y: daily;Me dication Descript ion: OTC; refills: 0 Not Available Not Available Not Available Symbicort 160 mcg-4.5 mcg/actua tion HFA aerosol inhaler 2 puffs Two times a day 03/08 completed Instruct ions: 2 inhalati ons twice a day;Freq uency: bid;Medi cation Descript ion: budesoni de-formo terol; Dosage:2 inhalati ons; Route:in halation ; refills: 6; Quantity :1 aerosol 2 samples given 07/26/17 Not Available Not Available Not Available roflumila st 500 mcg tablet TAKE 1 TABLET BY MOUTH DAILY active Not Available Not Available No t Available Breo Ellipta 200 mcg-25 mcg/dose powder for inhalatio n Inhale 1 puff every day by inhalati on route. 08/30 completed Not Available Not Available Not Available prednisol one 10 mg tablet Take 2 tablets as needed by oral route. 03/08 completed Not Available Not Available Not Available Trelegy Ellipta 100 mcg-62.5 mcg-25 mcg powder for inhalatio n Inhale 1 puff every day by inhalati on route. 2021 active Not Available Not Available Not Avai lable Daliresp 250 mcg tablet TAKE ONE TABLET BY MOUTH EVERY DAY active Not Available Not Available No t Available Vitals Date Recorded Body height Oxygen saturation Oxygen saturation in Arterial blood by Pulse oximetry Inhaled oxygen flow rate Heart rate Respiratory rate Systolic blood pressure Diastolic blood pressure Provider Name and Address Organization Details Last Updated DateTime 8 165.1 cm 98 % 98 % 2 L/min 127 /min 16 /min 128 mm[Hg] 80 mm[Hg] Stephanie Lowe [facility] 8 11:05:04 Date Recorded Body height Body mass index (BMI) Body weight Respiratory rate Heart rate Oxygen saturation Oxygen saturation in Arterial blood by Pulse oximetry Inhaled oxygen flow rate Systolic blood pressure Diastolic blood pressure Provider Name and Address Organization Details Last Updated DateTime 9 165.1 cm 32.3 kg/m2 05675.9 2 g 18 /min 112 /min 96 % 96 % 3 L/min 128 mm[Hg] 62 mm[Hg] Jonelle Duffy [facility] 9 11:54:48 Date Recorded Body height Body mass index (BMI) Body weight Respiratory rate Oxygen saturation Oxygen saturation in Arterial blood by Pulse oximetry Inhaled oxygen flow rate Heart rate Systolic blood pressure Diastolic blood pressure Provider Name and Address Organization Details Last Updated DateTime 9 165.1 cm 32.3 kg/m2 81365.9 2 g 16 /min 96 % 96 % 3 L/min 95 /min 98 mm[Hg] 60 mm[Hg] Sara Andrew [facility] 9 10:50:01 Date Recorded Body height Body mass index (BMI) Body weight Heart rate Oxygen saturation Oxygen saturation in Arterial blood by Pulse oximetry Inhaled oxygen flow rate Respiratory rate Systolic blood pressure Diastolic blood pressure Provider Name and Address Organization Details Last Updated DateTime 9 165.1 cm 31.6 kg/m2 94643.5 5 g 106 /min 97 % 97 % 3 L/min 18 /min 100 mm[Hg] 60 mm[Hg] Grace Quinn [facility] 9 10:12:04 Social History Question Answer Notes LastModified by Organizat ion Details LastModified Time Tobacco Smoking Status Former Smoker Grace Quinn [facility] 07/05/2016 11:26:53 When Did You Quit Smoking? 1-5yearssinc elastcigaret te [email or web address] Information not available 07/05/2016 What Was The Date Of Your Most Recent Tobacco Screening? 12/07/2018 Information n ot available 07/31/2019 How Much Tobacco Do You Smoke? 1.5 PPD [email or web address] Information not available 07/05/2016 How Many Years Have You Smoked Tobacco? 40 [email or web address] Information not available 07/05/2016 Sex: Unknown Functional Status None recorded. Mental Status None recorded. Family History Relationship Description Onset Age of this Age Resolved Age Notes LastModified by Organization Details LastModified Time Father No current problems or disability [email or web address] Not available 11:26:41 Mother No current problems or disability [email or web address] Not available 11:26:41 Medical History Condition Response Chronic Obstructive Pulmonary Disease Y Gynecological HistoryNo gynecological history recorded. Obstetrics History GPAL:G 0 P 0 0 0 0 Immunizations Vaccine Type Date Status Note Provider Nam e and Address Organization Details Recorded Time Influenza, high-dose, trivalent, PF 6 completed Grace Quinn [facility] 07/05/2016 11:25:08 Pneumococcal conjugate PCV 13 6 bonita Quinn [facility] 07/05/2016 11:25:47 pneumococcal polysaccharide PPV23 1 completed Grace Quinn [facility] 07/05/2016 11:26:04 Influenza, split virus, quadrivalent, preservative 8 completed Jonelle Duffy [facility] 09/07/2018 11:56:20 Influenza, split virus, quadrivalent, preservative 9 completed Grace Quinn [facility] 05/29/2019 10:16:10 Past Encounters Encounter ID Performer Location Encounter Start Date Encounter Closed Date Diagnosis/Indication Diagnosis SNOMED-CT Code Diagnosis ICD10 Code Diagnosis Note [id number] JESICA HOPKINS MD PULMONARY [address] [facility], [address] [place] [address] 07/05/2016 10:07:46 07/05/2016 18:59:28 Chronic obstructive pulmonary disease 18939258 J44.9 the patient has severe chronic obstructiv e airway disease. Her lungs are not infected. She is not bronchospa stic. Her medication s were reviewed. No medication changes were made. She is up-to-date with her influenza and pneumococc al vaccine. [id number] JESICA HOPKINS MD PULMONARY [address] [place] [address], [address] [place] [address] 1 07/05/2016 10:10:50 04/07/2017 03:46:46 [id number] JESICA HOPKINS MD PULMONARY [address] [place] [address], [address] [place] [address] 1 01/03/2017 10:24:28 01/03/2017 13:36:40 Chronic obstructive pulmonary disease 95482731 J44.9 The patient has severe chronic obstructiv e airway disease. Her lungs are not infected. She is not bronchospa stic. Her medication s were reviewed. No medication changes were made. She is up-to-date with her influenza and pneumococc al vaccine.da te. 01/03/2017T he patient has very severe chronic obstructiv e airway disease. She complained about anxiety and tremulousn ess of her arms. There hasn't been any significan t change in the intensity of her dyspnea. She is very short of breath on minimal exertion. Her FEV1 is 0.82 L/s/37%. She has not had an exacerbati on that required antibiotic s or oral steroids in the last 6 months.She was given samples of Symbicort and I refilled her medication s. [id number] JESICA HOPKINS MD PULMONARY [address] [place] [address], [address] [place] [address] 1 01/03/2017 10:25:32 01/03/2017 20:39:16 [id number] JESICA HOPKINS MD PULMONARY [address] [place] [address], [place] [address] 1 07/26/2017 12:48:23 07/26/2017 16:28:26 Chronic obstructive pulmonary disease 21535714 J44.9 .The patient is experienci ng an exacerbati on of chronic obstructiv e airway disease that was precipitat ed by a lower respirator y tract infection. Her condition has improved since completing a course of Keflex and oral prednisone . She is not back to her baseline yet. Her chest x-ray does not show any evidence of pneumonia 0r PNEUMOTHOR AX. Because of the delayed response to appropriat e outpatient treatment and because of the persistent shortness of breath and wheezing I recommende d that she be hospitaliz ed for treatment with IV antibiotic s and IV corticoste roids. She refused. I set her up to get prednisone 40 mg daily for 5 days. Doxycyclin e 100 mg by mouth twice a day for 10 days. Oxygen 3 L/m continuous ly. Continue to nebulized with albuterol and ipratropiu m the day had an she is joking with medicines 15 to. Continue Symbicort. The patient is to contact me in the next 5-7 days. If she does not improve she should go to the emergency room in [place]. Low back pain [id number] M54.5 the patient did not have low back pain. The prednisone was prescribed for an exacerbati on of her chronic obstructiv e airway disease. [id number] JESICA HOPKINS MD PULMONARY [address] [place] [address], [address] [address] 08/19/2017 11:00:24 08/20/2017 09:20:56 Chronic obstructive pulmonary disease 45361132 J44.9 the patient has severe chronic obstructiv e airway disease. Her FEV1 is 0.8 L/s/roughl y 35% of predicted and her DLCO is 5.5/23% of predicted. She has chronic hypoxemic respirator y failure now and she wears oxygen 2 L/m. She is slowly recovering from an exacerbati on of chronic obstructiv e airway disease. Her degree of dyspnea now is such that her lifestyle is very severely restricted . I gave her samples of Breo to use instead of Symbicort. She will follow-up with me in roughly a month. She has a rescue inhaler. Time spent 25 minutes. Of the time was counseling . Chronic hy poxemic respiratory failure 362938439 J96.11 the patient is unable to not use oxygen now. She is on 2 L/m continuous ly and 3 L/m when she exercises. [id number] JESICA HOPKINS MD PULMONARY [address] [place] [address], [address] [place] [address] 10/28/2017 09:58:35 10/31/2017 17:22:49 Chronic obstructive pulmonary disease 14191831 J44.9 the patient has severe chronic obstructiv e airway disease. Her FEV1 is 0.8 L/s/roughl y 35% of predicted and her DLCO is 5.5/23% of predicted. She has chronic hypoxemic respirator y failure now and she wears oxygen 2 L/m. She is slowly recovering from an exacerbati on of chronic obstructiv e airway disease. Her degree of dyspnea now is such that her lifestyle is very severely restricted . I gave her samples of Breo to use instead of Symbicort. She will follow-up with me in roughly a month. She has a rescue inhaler. Time spent 25 minutes. Of the time was counseling . Date. 10/28/2017. The patient could not tolerate Breo. She has resumed Symbicort. I don't think that there is much more to do for her. I have spoken with her about pulmonary rehabilita tion in [place]. Follow-up in the fall. [id number] JESICA HOPKINS MD PULMONARY [address] [facility], [address] [place] [address] 01/25/2018 10:02:42 01/26/2018 16:57:10 Chronic obstructive pulmonary disease 19193687 J44.9 the patient has severe chronic obstructiv e airway disease. Her FEV1 is 0.8 L/s/roughl y 35% of predicted and her DLCO is 5.5/23% of predicted. She has chronic hypoxemic respirator y failure now and she wears oxygen 2 L/m. She is slowly recovering from an exacerbati on of chronic obstructiv e airway disease. Her degree of dyspnea now is such that her lifestyle is very severely restricted . I gave her samples of Breo to use instead of Symbicort. She will follow-up with me in roughly a month. She has a rescue inhaler. Time spent 25 minutes. Of the time was counseling . Date. 10/28/2017. The patient could not tolerate Breo. She has resumed Symbicort. I don't think that there is much more to do for her. I have spoken with her about pulmonary rehabilita tion in [place]. Follow-up in the fall. Date. 01/25/2018. The patient has very severe chronic obstructiv e airway disease. She is very dyspneic with mild exertion. Her alpha-1 antitrypsi n level was normal. She is not bronchospa stic today. Her lungs are not infected. We gave her samples of trial of Trelegy and instructed on the correct use. I spoke with the nurse at the pulmonary rehabilita tion program at [facility]. They will evaluate her suitabilit y for pulmonary rehabilita tion. I think she is a good candidate for pulmonary rehabilita tion if she is willing to make the commitment . She is not on prednisone currently. She has used a lot of prednisone over the years, prior to my seeing her. She has not had a lung cancer screening CAT scan, per her wishes. I have not seen any recent cardiac workup. IThink her shortness of breath and degree of debility is consistent with very severe COPD. [id number] JESICA HOPKINS MD PULMONARY [address] [facility], [address] [place] [address] 03/08/2018 10:11:43 03/08/2018 16:18:31 Chronic obstructive pulmonary disease 24052410 J44.9 the patient has severe chronic obstructiv e airway disease. Her FEV1 is 0.8 L/s/roughl y 35% of predicted and her DLCO is 5.5/23% of predicted. She has chronic hypoxemic respirator y failure now and she wears oxygen 2 L/m. She is slowly recovering from an exacerbati on of chronic obstructiv e airway disease. Her degree of dyspnea now is such that her lifestyle is very severely restricted . I gave her samples of Breo to use instead of Symbicort. She will follow-up with me in roughly a month. She has a rescue inhaler. Time spent 25 minutes. Of the time was counseling . Date. 10/28/2017. The patient could not tolerate Breo. She has resumed Symbicort. I don't think that there is much more to do for her. I have spoken with her about pulmonary rehabilita tion in [place]. Follow-up in the fall. Date. 01/25/2018. The patient has very severe chronic obstructiv e airway disease. She is very dyspneic with mild exertion. Her alpha-1 antitrypsi n level was normal. She is not bronchospa stic today. Her lungs are not infected. We gave her samples of trial of Trelegy and instructed on the correct use. I spoke with the nurse at the pulmonary rehabilita tion program at [facility]. They will evaluate her suitabilit y for pulmonary rehabilita tion. I think she is a good candidate for pulmonary rehabilita tion if she is willing to make the commitment . She is not on prednisone currently. She has used a lot of prednisone over the years, prior to my seeing her. She has not had a lung cancer screening CAT scan, per her wishes. I have not seen any recent cardiac workup. IThink her shortness of breath and degree of debility is consistent with very severe COPD. Date. 03/08/2018. The patient has very severe chronic obstructiv e airway disease. She did derive some benefit recently since starting Trelegy. She is not bronchospa stic today. Her lungs are not infected. Follow-up in 6 months [id number] MAU CHINCHILLA MD PULMONARY [address] [place] [address], [address] [place], [place] [address] 09/07/2018 11:24:45 09/08/2018 08:10:03 Severe chronic obstructive pulmonary disease 482420507 J44.9 Severe. FEV1 0.8. End stage lung disease. Stopped smoking. UTD Vaccines. Continue trelegy. Changing duonebs to xopenex nebs due to tachycardi a with normal albuterol. Pulmonary emphysema 8743 3001 J43.9 DLCO 23% Chronic hy poxemic respiratory failure 896742951 J96.11 From Emphysema. Continue 3LPM all time. [id number] MAU CHINCHILLA MD PULMONARY [address] [place] [address], [address] [place], [place] [address] 12/07/2018 10:25:04 12/08/2018 06:26:38 Severe chronic obstructive pulmonary disease 788108070 J44.9 Severe. FEV1 0.8. End stage lung disease. Stopped smoking. UTD Vaccines. Continue trelegy. Changed duonebs to xopenex nebs due to tachycardi a with normal albuterol. Samples of Trelegy provided. Samples of Daliresp provided. Start daliresp. She has severe COPD and had another exacerbati on 1 month ago despite maximal inhaler therapy. Pulmonary emphysema 8743 3001 J43.9 DLCO 23% Chronic hy poxemic respiratory failure 972668495 J96.11 From Emphysema. Continue 3LPM all time. [id number] MAU CHINCHILLA MD PULMONARY [address] [place] [address], [address] [place] [address] 05/29/2019 09:49:29 05/29/2019 11:53:34 Severe chronic obstructive pulmonary disease 479266859 J44.9 Severe. FEV1 0.8. End stage lung disease. Stopped smoking. UTD Vaccines. Continue trelegy. Changed duonebs to xopenex nebs due to tachycardi a with normal albuterol. Has gotten PCV 13, 23. Annual flu shot. Samples of Trelegy provided. Daliresp 500 helped a lot no exacerbati ons since starting it, but she has too much diarrhea with it. I will decrease her to 250mcg. Pulmonary emphysema 8743 3001 J43.9 DLCO 23% Chronic hy poxemic respiratory failure 591273424 J96.11 From Emphysema. Continue 3LPM all time. [id number] MAU CHINCHILLA MD PULMONARY [address] [facility], [address] [place] [address] 11/21/2020 14:44:31 11/21/2020 15:49:11 Severe chronic obstructive pulmonary disease 858479353 J44.9 Severe. FEV1 0.8. End stage lung disease. Stopped smoking. UTD Vaccines. Continue trelegy. Changed duonebs to xopenex nebs due to tachycardi a with normal albuterol. Has gotten PCV 13, 23. Annual flu shot. Got Covid vaccine. Samples of Trelegy provided. Daliresp 500 helped a lot no exacerbati ons since starting it, but she has too much diarrhea with it. She is doing much better on 250mcg. Pulmonary emphysema 8743 3001 J43.9 DLCO 23% Chronic hy poxemic respiratory failure 157309865 J96.11 From Emphysema. Continue 3LPM all time. Health Concerns Section Related Observation LastModified by Organization Detai ls LastModified Time None Recorded Concern Status LastModified by Organization Details LastModified Time None Recorded Advance Directives Directive None Recorded Payers Insurance Date Sequence Insurance Name Policy Number Policy Boyle Covered Member ID Boyle Member ID Guarantor Name 08/11/2017 2 [place] [id number] Beba Casper [id number] Beba Casper 05/07/2020 1 [place] Beba Casper [id number] Beba Casper 05/14/2024 2 [place] [id number] Beba Casper [id number] Beba Casper 05/13/2024 1 [place] Beba Casper [id number] Beba Casper Notes Date Note Type Note Provider Name and Address Organization Details Recorded Time 03/08/2018 text/html the patient has very severe chronic obstructive airway disease. She is a former cigarette smoker. Her alpha-1 antitrypsin level was normal. She has no daily cough or sputum production. The intensity of her dyspnea as such that it does interfere with her lifestyle. She is very limited now. She has not been having any pain in her chest. She is due to get her influenza vaccine tomorrow. JESICA HOPKINS MD [address] [place] [address], [phone], [facility] 03/08/2018 11:42:28 09/07/2018 text/html Beba comes in for follow up of severe COPD and chronic hypoxemic respiratory failure. She stopped smoking 6 years ago. She is short of breath with minimal exertion, only going 30 feet. She was unable to do pulmonary rehabilitation. She had previously been followed by Drs. padilla. She is on Trelegy every day. She uses her DuoNeb's 3 times a day, but has to interrupt her breathing treatment residential through due to tachycardia and anxiety and jitteriness. No chest pain, no fevers, no chills. She does not have frequent exacerbations. She is on 3 L/m at all times. MAU CHINCHILLA MD [address] [place] [address], [phone], [facility] 09/07/2018 12:16:50 12/07/2018 text/html Beba comes in to follow-up severe COPD. She feels like she is doing pretty good. Her breathing is stable. No cough. She did have a cold 1 month ago that required steroids and antibiotics as it led to an exacerbation. No current fever, chills, night sweats, chest pain, palpitations. She has taken Trelegy daily but it does cost her $143 a month. She is on Xopenex but tries to use it sparingly due to tachycardia. She wears 3 L of oxygen all the time. MAU CHINCHILLA MD [address] [place], [phone], [facility] 12/08/2018 02:37:56 05/29/2019 text/html Interval History : Beba is coming in today for a f/u copd. Pt states that she is doing well. no flare ups. She is still taking Daliresp every other day because of diarrhea. She has no fever, no night sweats, no chest pain, no palpitations. Pt is up to date on all of her vaccines. Pt states that she is doing well with her trelegy. Pulmonary Diseases: copd, pulmonary emphysema, chronic hypoxemic respiratory failure Comorbid conditions:obesity Pulmonary medications: albuterol inhaler, duoneb, trelegy, oxygen 3LPM, dalirasp 250 Smoking history: former smoker Occupational/Expos ure history: none Data reviewed and interpreted by physician: MAU CHINCHILLA MD [address] [place], [phone], [facility] 05/29/2019 10:37:32 OBGyn Episode No OBEpisode recorded.
[2024-10-19 14:10] LABS: Basophils % 0.3 % (0.1-2.0); Eosinophils # 0.2 Kmm3 (0.0-0.4); Hematocrit 40.7 % (37.0-47.0); Hemoglobin 13.1 g/dL (12.2-16.2); Immature Granulocytes # 0.04 10^3uL; Immature Granulocytes % 0.4 %; Lymphocytes # 1.3 K/mm3 (0.7-4.5); Lymphocytes % 12.7 % (10-50); Mean Corpuscular HGB Conc 32.2 g/dL (31.8-35.4); Mean Corpuscular Hemoglobin 29.5 pg (27.0-31.2); Mean Corpuscular Volume 91.7 fl (81-99); Mean Platelet Volume 9.4 fl (7.4-10.4); Monocytes # 0.6 K/mm3 (0.1-1.0); Monocytes % 6.2 % (1.7-9.3); Neutrophils # 7.7 K/mm3 (1.8-7.8); Neutrophils % 78.4 % (37.0-80.0); Nucleated Red Blood Cells # 0 10^3/uL; Nucleated Red Blood Cells % 0 %; Platelet Count 350 K/mm3 (142-424); Red Blood Count 4.44 M/mm3 (4.20-5.40); Red Cell Distribution Width-SD 43.4 fL; White Blood Count 9.9 K/mm3 (4.8-10.8)
[2024-10-19 14:18] LABS: Chloride 94 mmol/L (98-107)
[2024-10-19 14:19] LABS: Albumin Level 4.4 g/dl (3.5-5.0); Sodium 137 mmol/L (136-145)
[2024-10-19 14:21] LABS: Blood Urea Nitrogen 17 mg/dl (7-17); Estimated Glomerular Filt Rate 53 ml/min (>60); GFR (African American) 64 ML/MIN (>60)
[2024-10-19 14:22] LABS: Alanine Aminotransferase 19 U/L (12-78); Albumin/Globulin Ratio 1.2 (1.1-1.8); Alkaline Phosphatase 83 U/L (38-126); Aspartate Amino Transferase 29 U/L (14-36); Bilirubin,Total 0.3 mg/dl (0.2-1.3); Calcium 9.2 mg/dl (8.4-10.2); Carbon Dioxide 38 mmol/L (22.0-30.0); Globulin 3.6 g/dL (1.3-3.2); Glucose 117 mg/dl (74-100)
[2024-10-19 14:26] LABS: Activated Partial Thrombo Time 29.2 seconds (22.8-30.6); Prothrombin Time 10.2 seconds (10.1-12.5)
[2024-10-19 14:30] VITALS: BP 155/71; PULSE 88; RESP 25; O2SAT 98
[2024-10-19 14:31] LABS: NT Pro Brain Natriuretic Pep. 115 pg/mL (0-450)
--- NOTE | 2024-10-19 14:31 | ED_ITS ---
<Statement entered by Radha Henderson DO - 10/19/24 15:50> I was consulted by the SARA, and we discussed the complexity of the problems being addressed. I approved the treatment and management plan for this patient's care in the emergency department, thus performing a substantive portion of the medical decision making. I was involved in the care of the patient till 1500 at time of shift change to Dr. Bobo. Radha Henderson DO Discharge Plan Disposition Patient Disposition: Home, Self-Care Prescriptions Prescriptions: New potassium chloride 20 mEq tablet extended release 20 meq PO DAILY Qty: 30 3RF magnesium oxide 400 mg magnesium capsule 400 mg PO HS Qty: 30 3RF No Action ondansetron 4 mg tablet,disintegrating 4 mg PO Q8H PRN (Reason: nausea and vomiting) Qty: 20 1RF fluconazole 200 mg tablet 200 mg PO DAILY Qty: 7 1RF furosemide 40 mg tablet 40 mg PO DAILY PRN (Reason: edema) Qty: 90 1RF roflumilast 250 mcg tablet 500 mcg PO DAILY Qty: 90 1RF albuterol sulfate 90 mcg/actuation HFA aerosol inhaler 1 inh inhalation Q6H PRN (Reason: shortness of breath or wheezing) Qty: 8.5 2RF qcyjjklovda-zvahdzlre-ghfxukir 100-62.5-25 mcg blister with device 1 ea inhalation DAILY Qty: 28 5RF Trelegy Ellipta 100-62.5-25 mcg blister with device See Rx Instructions .ROUTE .COMPLEX Qty: 60 1RF Dose Instruction: INHALE 1 PUFF BY MOUTH DAILY Rx Instructions: INHALE 1 PUFF BY MOUTH DAILY ferrous sulfate 324 mg (65 mg iron) tablet,delayed release (DR/EC) 324 mg PO DAILY Qty: 90 1RF levalbuterol HCl 1.25 mg/3 mL solution for nebulization 1.25 mg inhalation Q4-6H Qty: 270 2RF levothyroxine 100 mcg tablet 100 mcg PO DAILY Qty: 90 1RF oxazepam 10 mg capsule See Rx Instructions PO TID PRN (Reason: anxiety/sleep) Qty: 180 1RF Rx Instructions: 1 or 2 capsules 3 times a day as needed for anxiety orally three times a day PRN; Referrals Follow up/Referrals: Frank Marie MD [Primary Care Provider] - See instructions Activity Restrictions/Add. Instructions Additional Instructions/Restrictions: Call your family doctor to establish care for this visit to the emergency department and schedule follow-up within 48 hours to ensure improvement. If you have any worsening of your condition or any other concerning signs or symptoms, return to the emergency department or your primary care doctor for further evaluation. Follow-up with Dr. Marie for repeat labs in 7 to 10 days. 20 mEq of potassium daily as well as 400 magnesium oxide daily at bed. Clinical Impressions Clinical Impression: Shortness of breath Print Language Print Language: Eritrean Discharge ED Provider: Raghavendra Bobo HPI <Emily Bush APRN - Last Filed: 10/19/24 17:31> General Chief Complaint: Shortness of Breath/Dyspnea Stated Complaint: Chest Pain Time Seen by Provider: 10/19/24 13:46 History of Present Illness HPI narrative: patient is a 89-year-old female PMHx cor pulmonale, history of anemia, SIRS, chronic respiratory failure, COPD, anxiety, tachycardia, TIA who presents to the ED with complaints of shortness of breath. Patient states over the past week she has felt short of breath, is concerned that she has a fluid buildup over her body. Related Data Previous Rx's ?Medication ?Instructions ?Recorded fluconazole 200 mg tablet 200 mg PO DAILY #7 tabs 01/11/24 ondansetron 4 mg disintegrating 4 mg PO Q8H PRN nausea and 02/20/24 tablet vomiting #20 tabs roflumilast 250 mcg tablet 500 mcg (2 x 250 mcg) PO DAILY 03/23/24 COPD #90 tabs albuterol sulfate 90 mcg/actuation 1 inh inhalation Q6H PRN shortness 05/29/24 aerosol inhaler of breath or wheezing #8.5 grams fluticasone fur. 100 mcg-umeclid 1 ea inhalation DAILY COPD #28 ea 05/29/24 62.5 mcg-vilant 25 mcg inhalat.powder fluticasone fur. 100 mcg-umeclid See Rx Instructions .Route 06/01/24 62.5 mcg-vilant 25 mcg .COMPLEX #60 blisters inhalat.powder (Trelegy Ellipta) ferrous sulfate 324 mg (65 mg 324 mg PO DAILY #90 tabs 07/04/24 iron) tablet,delayed release levalbuterol HCl 1.25 mg/3 mL 1.25 mg (3 mL) inhalation Q4-6H 07/09/24 solution for nebulization J44.89 #270 mL levothyroxine 100 mcg tablet 100 mcg PO DAILY thyroid #90 tabs 08/31/24 furosemide 40 mg tablet 40 mg PO DAILY PRN edema #90 tabs 09/24/24 oxazepam 10 mg capsule See Rx Instructions PO TID PRN 09/24/24 anxiety/sleep #180 caps magnesium oxide 400 mg PO HS #30 caps 10/19/24 potassium chloride 20 mEq 20 meq PO DAILY #30 tabs 10/19/24 tablet,extended release Allergies Allergy/AdvReac Type Severity Reaction Status Date / Time codeine (CODEINE) Allergy Mild Verified 09/24/24 11:59 Sulfa (Sulfonamide Allergy Mild Verified 09/24/24 11:59 Antibiotics) (SULFA (SULFONAMIDE ANTIBIOTICS)) [facility] <Emily Bush APRN - Last Filed: 10/19/24 17:31> [facility] Disclaimer: The information contained in this section may have been updated after the patient was seen, as this information can be updated by other users. Medical History Pericardial effusion No cardiac tamponade Hypothyroidism Anxiety History of COVID-19 COPD (chronic obstructive pulmonary disease) Surgical History Hx of tubal ligation Family History Other No significant family history Social History Smoking Status: Former smoker alcohol intake: never current occupational status: retired Travel in the last 8 weeks?: None household members: spouse housing: house marital status: education level: high school service: No group home: No caffeine: No Have you lived/traveled outside [place] in past 30 days?: No Contact w/someone who lives/traveled outside US past 30 days?: No Exposure to someone with infectious disease in past 14 days?: No Do you have a fever (greater than 100.4 F or 38 C)?: No Have you tested positive for COVID-19?: No Exposed to someone with COVID-19 in past 14 days?: No Do you have a sore throat?: No Do you have a cough?: No Do you have any weakness?: No Do you have any diarrhea?: No Are you experiencing any unusual bleeding?: No Do you have any muscle aches/pain?: No Do you have any abdominal pain?: No Are you experiencing loss of taste or smell?: No Other Medical History Have you received the Flu Vaccine for this season: No Have you received the Pneumonia Vaccine: Yes <Emily Bush APRN - Last Filed: 10/19/24 17:31> ROS Obtained: Yes Systems reviewed as appropriate & no additional complaints except as documented <Radha Henderson DO - Last Filed: 10/19/24 15:50> ROS Obtained: Yes All systems reviewed & no additional complaints except as documented Physical Exam <Emily Bush APRN - Last Filed: 10/19/24 17:31> Head Head exam: atraumatic and normocephalic Eye Eye exam: Present normal appearance and PERRL ENT ENT exam: Present normal exam Neck Neck exam: Present normal inspection Chest Chest inspection: Present normal inspection and symmetric chest wall rise; Absent tenderness Abdominal Exam Abdominal exam: Present soft and normal bowel sounds; Absent tenderness Extremities Exam Extremities exam: Present full ROM and edema (1+ edema) Back Exam Back exam: Present normal inspection and full ROM Psychiatric Psychiatric exam: Present normal affect and normal mood Skin Skin exam: Present warm and dry <Radha Henderson DO - Last Filed: 10/19/24 15:50> General General appearance: alert and in no apparent distress Respiratory Respiratory exam: Present normal lung sounds bilaterally Cardiovascular Cardiovascular exam: Present regular rate Neurological Exam Neurological exam: Present alert and oriented X3 HEART Score <Emily Bush APRN - Last Filed: 10/19/24 17:31> HEART Score History (anamnesis): Slightly suspicious ECG: Non-specific disturbance Age: >65 years Risk factors: 1-2 risk factors Troponin: </= normal limit HEART Score: 4 <Radha Henderson DO - Last Filed: 10/19/24 15:50> HEART Score HEART Score assessment performed?: No <Raghavendra Bobo MD - Last Filed: 10/19/24 19:18> HEART Score HEART Score: 4 Procedures <Raghavendra Bobo MD - Last Filed: 10/19/24 19:18> Limited Ultrasound Indication:: Limited cardiac ultrasound Indication: Shortness of breath Identified cardiac views: -Cardiac parasternal long axis -Cardiac parasternal short axis Findings: -Cardiac activity present -Gross wall motion normal -Pericardial effusion absent -Right heart strain absent Impression: - Normal cardiac ultrasound Images were saved to permanent archive The study was technically adequate CPT: 90973 This study was performed by me, and I personally interpreted all images/videos. Based on my clinical judgement, these images were adequate and did not necessitate further imaging Critical Care <Radha Henderson DO - Last Filed: 10/19/24 15:50> Critical Care Time Critical Care Time: No Medical Decision Making <Emily Bush APRN - Last Filed: 10/19/24 17:31> Cesar Inquiry Pt receiving controlled substance: No Vital Signs Vital Signs: 10/19/24 14:01 10/19/24 14:02 10/19/24 14:30 Temperature 98.1 F Temperature Source Oral Pulse Rate 87 88 Pulse Rate [Left Radial] 121 H Respiratory Rate 28 H 17 25 H Blood Pressure 130/70 155/71 H Blood Pressure [Right Arm] 148/87 H Blood Pressure Mean [Right Arm] 107 Blood Pressure Source Blood Pressure Source [Right Arm] Automatic Cuff Blood Pressure Position [Right Arm] Sitting 02 Sat by Pulse Oximetry 99 98 98 Oxygen Delivery Method Room Air Oxygen Flow Rate (LPM) 10/19/24 16:28 Temperature 97.6 F Temperature Source Temporal Artery Scan Pulse Rate 85 Pulse Rate [Left Radial] Respiratory Rate 22 Blood Pressure 132/80 Blood Pressure [Right Arm] Blood Pressure Mean [Right Arm] Blood Pressure Source Automatic Cuff Blood Pressure Source [Right Arm] Blood Pressure Position [Right Arm] 02 Sat by Pulse Oximetry Oxygen Delivery Method Nasal Cannula Oxygen Flow Rate (LPM) 3 Lab Data Labs: Lab Results 10/19/24 14:03: WBC 9.9, RBC 4.44, Hgb 13.1, Hct 40.7, MCV 91.7, MCH 29.5, MCHC 32.2, RDW 13.0, Plt Count 350, MPV 9.4, Neut % (Auto) 78.4, Lymph % (Auto) 12.7, [place] % (Auto) 6.2, Eos % (Auto) 2.0, Baso % (Auto) 0.3, Neut # (Auto) 7.7, Lymph # (Auto) 1.3, [place] # (Auto) 0.6, Eos # (Auto) 0.2, Baso # (Auto) 0.0, PT 10.2, INR 0.90, APTT 29.2, D-Dimer 0.70 H, Sodium 137, Potassium 4.0, Chloride 94 L, C arbon Dioxide 38 H, Anion Gap 9.0, BUN 17, Creatinine 1.00, Estimated GFR 53 L, Est GFR ( Amer) 64, Glucose 117 H, Calcium 9.2, Total Bilirubin 0.3, AST 29, ALT 19, Alkaline Phosphatase 83, Troponin I < 0.01, NT-Pro-B Natriuret Pep 115, Total Protein 8.0, Albumin 4.4, Globulin 3.6 H, Albumin/Globulin Ratio 1.2 10/19/24 15:11: VBG pH 7.35, VBG pCO2 63.4 H, VBG pO2 41.9 H, VBG HCO3 34.5 H, V BG Total CO2 36.4 H, VBG O2 Saturation 75.8 H, VBG Base Excess 8.9 H, VBG Lactic Acid 2.9 H 10/19/24 14:03 10/19/24 14:03 Response Orders (Tests/Meds): ED MEDICATIONS Discontinued Medications Generic Name Dose Route Start Last Admin Trade Name Freq PRN Reason Stop Dose Admin Iopamidol 80 ml 10/19/24 14:54 10/19/24 14:54 Iopamidol-370 (76%);100ml Bottle IV 10/19/24 14:55 80 ml ONCE ONE Administration Sodium Chloride 50 ml 10/19/24 14:54 10/19/24 14:54 0.9 % Sodium Chloride 50 Ml Vial IV 10/19/24 14:55 50 ml ONCE ONE Administration ORDERS Category Date Time Status CT abdomen pelvis w con Stat Cat Scan 10/19/24 14:[address] angio chest PE protocol Stat Cat Scan 10/19/24 14:02 Completed POCUS Point of Care (ER Only) Stat Exams 10/19/24 15:45 Completed XR chest portable Stat Exams 10/19/24 14:02 Completed Activated Partial Thrombo Time Stat Lab 10/19/24 14:03 Completed Complete Blood Count Auto Diff Stat Lab 10/19/24 14:03 Completed Comprehensive Metabolic Panel Stat Lab 10/19/24 14:03 Completed D-Dimer Stat Lab 10/19/24 14:03 Completed Lactic Acid Follow Up (RFLX 1) Stat Lab 10/19/24 19:18 Ordered NT Pro Brain Natriuretic Pep. Stat Lab 10/19/24 14:03 Completed Prothrombin Time INR Stat Lab 10/19/24 14:03 Completed Troponin I Stat Lab 10/19/24 14:03 Completed Venous Blood Gas Stat RT 10/19/24 15:11 Completed MDM Narrative Medical Decision Narrative: In summary, patient is a 89-year-old female PMHx cor pulmonale, history of anemia, SIRS, chronic respiratory failure, COPD, anxiety, tachycardia, TIA who presents to the ED with complaints of shortness of breath. Patient states over the past week she has felt short of breath, is concerned that she has a fluid buildup over her body. Patient states she has been in fluid overload before. Upon initial evaluation, she is alert and oriented, physical exam is unremarkable. Bilateral lower extremity edema, 1+. Denies fever, chills, headache, chest pain, abdominal pain, nausea, vomiting. CBC unremarkable for any leukocytosis, stable H&H. PT, INR, APTT normal. CMP unremarkable for any actionable abnormalities. Troponin < 0.01. D-dimer 0.70. BNP normal, 115. Will proceed with CTA. VBG pH normal, CO2 63.4, lactic acid 2.9. Chest x-ray unremarkable for any acute findings, bilateral left greater than right interstitial opacities that are stable. Chest CTA shows no pulmonary embolism or aortic dissection. POCUS performed by attending. Upon reassessment, patient's condition has improved. Given this, I feel that she is safe to be discharged home at this time. During discharge, attending discussed starting potassium, discussed follow-up with PCP. Discussed repeating lab work in 7 to 10 days. Patient remained hemodynamically stable. Discussed return precautions to the ED. <Radha Henderson, DO - Last Filed: 10/19/24 15:50> Vital Signs Vital Signs: 10/19/24 14:01 10/19/24 14:02 10/19/24 14:30 Temperature 98.1 F Temperature Source Oral Pulse Rate 87 88 Pulse Rate [Left Radial] 121 H Respiratory Rate 28 H 17 25 H Blood Pressure 130/70 155/71 H Blood Pressure [Right Arm] 148/87 H Blood Pressure Mean [Right Arm] 107 Blood Pressure Source Blood Pressure Source [Right Arm] Automatic Cuff Blood Pressure Position [Right Arm] Sitting 02 Sat by Pulse Oximetry 99 98 98 Oxygen Delivery Method Room Air Oxygen Flow Rate (LPM) 10/19/24 16:28 Temperature 97.6 F Temperature Source Temporal Artery Scan Pulse Rate 85 Pulse Rate [Left Radial] Respiratory Rate 22 Blood Pressure 132/80 Blood Pressure [Right Arm] Blood Pressure Mean [Right Arm] Blood Pressure Source Automatic Cuff Blood Pressure Source [Right Arm] Blood Pressure Position [Right Arm] 02 Sat by Pulse Oximetry Oxygen Delivery Method Nasal Cannula Oxygen Flow Rate (LPM) 3 Lab Data Labs: Lab Results 10/19/24 14:03: WBC 9.9, RBC 4.44, Hgb 13.1, Hct 40.7, MCV 91.7, MCH 29.5, MCHC 32.2, RDW 13.0, Plt Count 350, MPV 9.4, Neut % (Auto) 78.4, Lymph % (Auto) 12.7, [place] % (Auto) 6.2, Eos % (Auto) 2.0, Baso % (Auto) 0.3, Neut # (Auto) 7.7, Lymph # (Auto) 1.3, [place] # (Auto) 0.6, Eos # (Auto) 0.2, Baso # (Auto) 0.0, PT 10.2, INR 0.90, APTT 29.2, D-Dimer 0.70 H, Sodium 137, Potassium 4.0, Chloride 94 L, C arbon Dioxide 38 H, Anion Gap 9.0, BUN 17, Creatinine 1.00, Estimated GFR 53 L, Est GFR ( Amer) 64, Glucose 117 H, Calcium 9.2, Total Bilirubin 0.3, AST 29, ALT 19, Alkaline Phosphatase 83, Troponin I < 0.01, NT-Pro-B Natriuret Pep 115, Total Protein 8.0, Albumin 4.4, Globulin 3.6 H, Albumin/Globulin Ratio 1.2 10/19/24 15:11: VBG pH 7.35, VBG pCO2 63.4 H, VBG pO2 41.9 H, VBG HCO3 34.5 H, V BG Total CO2 36.4 H, VBG O2 Saturation 75.8 H, VBG Base Excess 8.9 H, VBG Lactic Acid 2.9 H Response Orders (Tests/Meds): ED MEDICATIONS Discontinued Medications Generic Name Dose Route Start Last Admin Trade Name Sherri PRN Reason Stop Dose Admin Iopamidol 80 ml 10/19/24 14:54 10/19/24 14:54 Iopamidol-370 (76%);100ml Bottle IV 10/19/24 14:55 80 ml ONCE ONE Administration Sodium Chloride 50 ml 10/19/24 14:54 10/19/24 14:54 0.9 % Sodium Chloride 50 Ml Vial IV 10/19/24 14:55 50 ml ONCE ONE Administration ORDERS Category Date Time Status CT abdomen pelvis w con Stat Cat Scan 10/19/24 14:[address] angio chest PE protocol Stat Cat Scan 10/19/24 14:02 Completed POCUS Point of Care (ER Only) Stat Exams 10/19/24 15:45 Completed XR chest portable Stat Exams 10/19/24 14:02 Completed Activated Partial Thrombo Time Stat Lab 10/19/24 14:03 Completed Complete Blood Count Auto Diff Stat Lab 10/19/24 14:03 Completed Comprehensive Metabolic Panel Stat Lab 10/19/24 14:03 Completed D-Dimer Stat Lab 10/19/24 14:03 Completed Lactic Acid Follow Up (RFLX 1) Stat Lab 10/19/24 19:18 Ordered NT Pro Brain Natriuretic Pep. Stat Lab 10/19/24 14:03 Completed Prothrombin Time INR Stat Lab 10/19/24 14:03 Completed Troponin I Stat Lab 10/19/24 14:03 Completed Venous Blood Gas Stat RT 10/19/24 15:11 Completed ECG Data Tracing #1: Attestation: I reviewed this ECG and interpreted as documented below: ECG Narrative: Normal sinus rhythm with a ventricular rate of [address]/T wave changes without acute STEMI. Normal intervals ECG initial impression date: 10/19/24 ECG initial impression time: 13:51 <Raghavendra Bobo MD - Last Filed: 10/19/24 19:18> Vital Signs Vital Signs: 10/19/24 14:01 10/19/24 14:02 10/19/24 14:30 Temperature 98.1 F Temperature Source Oral Pulse Rate 87 88 Pulse Rate [Left Radial] 121 H Respiratory Rate 28 H 17 25 H Blood Pressure 130/70 155/71 H Blood Pressure [Right Arm] 148/87 H Blood Pressure Mean [Right Arm] 107 Blood Pressure Source Blood Pressure Source [Right Arm] Automatic Cuff Blood Pressure Position [Right Arm] Sitting 02 Sat by Pulse Oximetry 99 98 98 Oxygen Delivery Method Room Air Oxygen Flow Rate (LPM) 10/19/24 16:28 Temperature 97.6 F Temperature Source Temporal Artery Scan Pulse Rate 85 Pulse Rate [Left Radial] Respiratory Rate 22 Blood Pressure 132/80 Blood Pressure [Right Arm] Blood Pressure Mean [Right Arm] Blood Pressure Source Automatic Cuff Blood Pressure Source [Right Arm] Blood Pressure Position [Right Arm] 02 Sat by Pulse Oximetry Oxygen Delivery Method Nasal Cannula Oxygen Flow Rate (LPM) 3 Lab Data Labs: Lab Results 10/19/24 14:03: WBC 9.9, RBC 4.44, Hgb 13.1, Hct 40.7, MCV 91.7, MCH 29.5, MCHC 32.2, RDW 13.0, Plt Count 350, MPV 9.4, Neut % (Auto) 78.4, Lymph % (Auto) 12.7, [place] % (Auto) 6.2, Eos % (Auto) 2.0, Baso % (Auto) 0.3, Neut # (Auto) 7.7, Lymph # (Auto) 1.3, [place] # (Auto) 0.6, Eos # (Auto) 0.2, Baso # (Auto) 0.0, PT 10.2, INR 0.90, APTT 29.2, D-Dimer 0.70 H, Sodium 137, Potassium 4.0, Chloride 94 L, C arbon Dioxide 38 H, Anion Gap 9.0, BUN 17, Creatinine 1.00, Estimated GFR 53 L, Est GFR ( Amer) 64, Glucose 117 H, Calcium 9.2, Total Bilirubin 0.3, AST 29, ALT 19, Alkaline Phosphatase 83, Troponin I < 0.01, NT-Pro-B Natriuret Pep 115, Total Protein 8.0, Albumin 4.4, Globulin 3.6 H, Albumin/Globulin Ratio 1.2 10/19/24 15:11: VBG pH 7.35, VBG pCO2 63.4 H, VBG pO2 41.9 H, VBG HCO3 34.5 H, V BG Total CO2 36.4 H, VBG O2 Saturation 75.8 H, VBG Base Excess 8.9 H, VBG Lactic Acid 2.9 H Response Orders (Tests/Meds): ED MEDICATIONS Discontinued Medications Generic Name Dose Route Start Last Admin Trade Name Sherri PRN Reason Stop Dose Admin Iopamidol 80 ml 10/19/24 14:54 10/19/24 14:54 Iopamidol-370 (76%);100ml Bottle IV 10/19/24 14:55 80 ml ONCE ONE Administration Sodium Chloride 50 ml 10/19/24 14:54 10/19/24 14:54 0.9 % Sodium Chloride 50 Ml Vial IV 10/19/24 14:55 50 ml ONCE ONE Administration ORDERS Category Date Time Status CT abdomen pelvis w con Stat Cat Scan 10/19/24 14:[address] angio chest PE protocol Stat Cat Scan 10/19/24 14:02 Completed POCUS Point of Care (ER Only) Stat Exams 10/19/24 15:45 Completed XR chest portable Stat Exams 10/19/24 14:02 Completed Activated Partial Thrombo Time Stat Lab 10/19/24 14:03 Completed Complete Blood Count Auto Diff Stat Lab 10/19/24 14:03 Completed Comprehensive Metabolic Panel Stat Lab 10/19/24 14:03 Completed D-Dimer Stat Lab 10/19/24 14:03 Completed Lactic Acid Follow Up (RFLX 1) Stat Lab 10/19/24 19:18 Ordered NT Pro Brain Natriuretic Pep. Stat Lab 10/19/24 14:03 Completed Prothrombin Time INR Stat Lab 10/19/24 14:03 Completed Troponin I Stat Lab 10/19/24 14:03 Completed Venous Blood Gas Stat RT 10/19/24 15:11 Completed MDM Narrative Medical Decision Narrative: In summary, patient is a 89-year-old female PMHx cor pulmonale, history of anemia, SIRS, chronic respiratory failure, COPD, anxiety, tachycardia, TIA who presents to the ED with complaints of shortness of breath. Patient states over the past week she has felt short of breath, is concerned that she has a fluid buildup over her body. Patient states she has been in fluid overload before. Upon initial evaluation, she is alert and oriented, physical exam is unremarkable. Bilateral lower extremity edema, 1+. Denies fever, chills, headache, chest pain, abdominal pain, nausea, vomiting. CBC unremarkable for any leukocytosis, stable H&H. PT, INR, APTT normal. CMP unremarkable for any actionable abnormalities. Troponin < 0.01. D-dimer 0.70. BNP normal, 115. Will proceed with CTA. VBG pH normal, CO2 63.4, lactic acid 2.9. Chest x-ray unremarkable for any acute findings, bilateral left greater than right interstitial opacities that are stable. Chest CTA shows no pulmonary embolism or aortic dissection. POCUS performed by attending. Upon reassessment, patient's condition has improved. Given this, I feel that she is safe to be discharged home at this time. During discharge, attending discussed starting potassium, discussed follow-up with PCP. Discussed repeating lab work in 7 to 10 days. Patient remained hemodynamically stable. Discussed return precautions to the ED. I independently examined and interviewed patient. I was consulted by the SARA, and we discussed the complexity of the problems being addressed. I approved the treatment and management plan for this patient's care in the Emergency Department, thus performing a substantive portion of the medical decision making. Raghavendra Bobo MD
[2024-10-19 14:36] LABS: Troponin I < 0.01 ng/ml (0.00-0.034)
[2024-10-19] MEDS: IOPAMIDOL-370 (76%);100ML BOTTLE 80 ML IV (14:54)
[2024-10-19] MEDS: 0.9 % SODIUM CHLORIDE 50 ML VIAL IV (14:54)
--- NOTE | 2024-10-19 15:07 | PC.NURSE ---
I notified Heidi in resp that a green top was sent to lab for her VBG
[2024-10-19 15:16] LABS: VBG Base Excess 8.9 mmol/L (-2.4-2.3); VBG HCO3 34.5 mmol/L (23-30); VBG Oxygen Saturation 75.8 % (50-70); VBG PH 7.35 mmol/L (7.31-7.41); VBG PO2 41.9 mmol/L (28-40); VBG Total CO2 36.4 mmol/L (23-27)
[2024-10-19 15:18] LABS: Lactate Venous 2.9 mmol/L (0.4-2.0); VBG PCO2 63.4 mmol/L (35-51)
[2024-10-19 16:28] VITALS: BP 132/80; PULSE 85; RESP 22; TEMP 36.4; O2SAT 95
[2024-10-19 19:18] LABS: Reflex Lactic Add Lactic Reflex
== END 2024-10-19 16:31 | disposition home or self-care (01) ==
PROVIDERS: Nurse Practitioner; Emergency Provider Emergency Medicine; PCP Internal Medicine
DX: R06.02 Shortness of breath (principal); R91.8 Other nonspecific abnormal finding of lung field; J44.9 Chronic obstructive pulmonary disease, unspecified; Z87.891 Personal history of nicotine dependence
CPT/HCPCS: 71045; 71275; 74177; 80053; 82803; 83880; 84484; 85025; 85378; 85610; 85730; 93005; 99285; Q9967

== ENCOUNTER 2025-02-07 12:28 | Emergency (ER) | payer MEDICARE, BC, SELFPAY ==
--- NOTE | 2025-02-07 12:33 | ED_ITS ---
<Statement entered by Tomy Ferro DO - 02/08/25 07:44> I was consulted by the SARA, and we discussed the complexity of problems being addressed. I approved the treatment and management plan for this patient's care in the emergency department, thus performing a substantive portion of the medical decision making. I agree with SARA assessment and plan as listed above. I did independently evaluate and assess the patient herself. The patient had gone to urgent care treatment center today for evaluation of potential urinary tract infection. At this appointment they evaluated her with a urinalysis and she was reportedly told that she was septic with a bad urinary tract infection and that she should come to the emergency department immediately. The family who accompanies the patient states that they would not have come to the emergency department if the urinalysis was negative because they had no other concerns. In the emergency department the patient does not have any vital sign derangements or lab abnormalities that would indicate sepsis. Her urinalysis is unremarkable for urinary tract infection. While the patient was in the emergency department she was reporting a sensation of incomplete emptying of her bladder. As outlined in the SARA note we did 2 consecutive bladder scans after voiding trials and found that she was experiencing urinary retention. As discussed in the note below we ultimately anchored a Renner and discharge the patient home with follow- up with urology for further workup of her acute urinary retention. Tomy Ferro DO Discharge Plan Disposition Patient Disposition: Home, Self-Care Condition: Good Prescriptions Prescriptions: No Action ondansetron 4 mg tablet,disintegrating 4 mg PO Q8H PRN (Reason: nausea and vomiting) Qty: 20 1RF lorazepam 1 mg tablet 1 mg PO TID PRN (Reason: anxiety) Qty: 90 0RF albuterol sulfate 90 mcg/actuation HFA aerosol inhaler 1 inh inhalation Q6H PRN (Reason: shortness of breath or wheezing) Qty: 8.5 2RF hecxclmlomb-lydwvxidi-psepvytp 100-62.5-25 mcg blister with device 1 ea inhalation DAILY Qty: 28 5RF levalbuterol HCl 1.25 mg/3 mL solution for nebulization 1.25 mg inhalation Q4-6H Qty: 270 2RF levothyroxine 100 mcg tablet 100 mcg PO DAILY Qty: 90 1RF furosemide 40 mg tablet 40 mg PO DAILY PRN (Reason: edema) Qty: 90 1RF ferrous sulfate 324 mg (65 mg iron) tablet,delayed release (DR/EC) 324 mg PO DAILY Qty: 90 1RF roflumilast 250 mcg tablet 500 mcg PO DAILY Qty: 90 1RF Trelegy Ellipta 100-62.5-25 mcg blister with device See Rx Instructions .ROUTE .COMPLEX Qty: 60 5RF Dose Instruction: INHALE 1 PUFF BY MOUTH DAILY Rx Instructions: INHALE 1 PUFF BY MOUTH DAILY nystatin 100,000 unit/gram ointment 1 applic topical QID Qty: 30 2RF fluconazole 200 mg tablet 200 mg PO DAILY Qty: 7 1RF Belsomra 10 mg tablet 10 mg PO HS Qty: 90 0RF potassium chloride 20 mEq tablet extended release 20 meq PO DAILY Qty: 30 3RF magnesium oxide 400 mg magnesium capsule 400 mg PO HS Qty: 30 3RF Referrals Follow up/Referrals: Frank Marie MD [Primary Care Provider, Medical] - See instructions Charles Silva MD [Staff Physician, Urology] - See instructions Activity Restrictions/Add. Instructions Additional Instructions/Restrictions: You were evaluated on an emergency basis. It is very important that you follow- up with your primary care provider and any specialist who we discussed within the next 2 days in order to better assess your health more comprehensively. For example, incidental findings on imaging or laboratory results that were performed today may be discovered, which do not require immediate medical care, but may impact your health in the future. If your symptoms worsen or persist, please return to the emergency department immediately for reassessment. Take all medications as prescribed. In queue for allowing me to participate in your health care, and I hope you feel better soon. Clinical Impressions Clinical Impression: Acute urinary retention Instructions Patient Instructions: DI for Urinary Retention in Women Print Language Print Language: B[place] Discharge ED Provider: Yasmani Juan General Adult HPI General Chief complaint: Urogenital-Female Stated complaint: poss UTI Time Seen by Provider: 02/07/25 12:32 History of Present Illness HPI narrative: 84-year-old female presents emergency department the request of her primary care provider for evaluation of urinary tract infection. Family reports patient has had recurrent urinary tract infection with recent culture growing out E. coli. They states that she just finished a course of Keflex for treatment of UTI. He also reports that she has had ongoing diarrhea for the past couple of months. Patient reports she has had decreased urine output but denies any other urinary symptoms. Related Data Previous Rx's ?Medication ?Instructions ?Recorded ondansetron 4 mg disintegrating 4 mg PO Q8H PRN nausea and 02/20/24 tablet vomiting #20 tabs albuterol sulfate 90 mcg/actuation 1 inh inhalation Q6 H PRN shortness 05/29/24 aerosol inhaler of breath or wheezing #8.5 g rodriguez fluticasone fur. 100 mcg-umeclid 1 ea inhalation DAILY COPD #28 ea 05/29/24 62.5 mcg-vilant 25 mcg inhalat.powder levalbuterol HCl 1.25 mg/3 mL 1.25 mg (3 mL) inhalatio n Q4-6H 07/09/24 solution for nebulization J44.89 #270 mL levothyroxine 100 mcg tablet 100 mcg PO DAILY thyroid #90 tabs 08/31/24 magnesium oxide 400 mg PO HS #30 caps potassium chloride 20 mEq 20 meq PO DAILY #30 tabs 03/07 tablet,extended release furosemide 40 mg tablet 40 mg PO DAILY PRN edema #90 tabs 11/16/24 ferrous sulfate 324 mg (65 mg 324 mg PO DAILY #90 tabs 12/24/24 iron) tablet,delayed release roflumilast 250 mcg tablet 500 mcg (2 x 250 mcg) PO DA KAYLA 01/08/25 COPD #90 tabs fluticasone fur. 100 mcg-umeclid See Rx Instructions . Route 01/11/25 62.5 mcg-vilant 25 mcg .COMPLEX #60 blisters inhalat.powder (Trelegy Ellipta) nystatin 100,000 unit/gram topical 1 applic topical QI D #30 grams 01/30/25 ointment fluconazole 200 mg tablet 200 mg PO DAILY #7 tabs 01/12 07/07 lorazepam 1 mg tablet 1 mg PO TID PRN anxiety #90 tabs 01/31/25 suvorexant 10 mg tablet (Belsomra) 10 mg PO HS #90 tab s 02/04/25 Allergies Allergy/AdvReac Type Severity Reaction Status Date / Time codeine (CODEINE) Allergy Mild Verified 01/31/25 16:11 Sulfa (Sulfonamide Allergy Mild Verified 01/31/25 16:11 Antibiotics) (SULFA (SULFONAMIDE ANTIBIOTICS)) [facility] Disclaimer: The information contained in this section may have been updated after the patient was seen, as this information can be updated by other users. Medical History Pericardial effusion No cardiac tamponade Hypothyroidism Anxiety History of COVID-19 COPD (chronic obstructive pulmonary disease) Surgical History Hx of tubal ligation Family History Other No significant family history Social History Smoking Status: Unknown if ever smoked alcohol intake: never current occupational status: retired Travel in the last 8 weeks?: None household members: spouse housing: house marital status: education level: high school service: No care home: No caffeine: No Have you lived/traveled outside [place] in past 30 days?: No Contact w/someone who lives/traveled outside [place] past 30 days?: No Exposure to someone with infectious disease in past 14 days?: No Do you have a fever (greater than 100.4 F or 38 C)?: No Have you tested positive for COVID-19?: No Exposed to someone with COVID-19 in past 14 days?: No Do you have a sore throat?: No Do you have a cough?: No Do you have any weakness?: No Do you have any diarrhea?: No Are you experiencing any unusual bleeding?: No Do you have any muscle aches/pain?: No Do you have any abdominal pain?: Yes Are you experiencing loss of taste or smell?: No Other Medical History Have you received the Flu Vaccine for this season: No Have you received the Pneumonia Vaccine: No ROS Obtained: Yes All systems reviewed & no additional complaints except as documented Gastrointestinal Gastrointestingal: Reports diarrhea Genitourinary Female Genitourinary: Reports other (Decreased urinary output) Physical Exam Narrative Physical exam: General: Awake, aware, in no acute distress HEENT: Normocephalic, no evidence of trauma CV: RRR, no murmurs, rubs, or gallops Pulm: CTA bilaterally with no rhonchi, rales, wheezes ABD: Nontender, no swelling, guarding, or rebound tenderness Psych, appropriate mood and affect General General appearance: alert Respiratory Respiratory exam: Present normal lung sounds bilaterally Cardiovascular Cardiovascular exam: Present regular rate Neurological Exam Neurological exam: Present alert Medical Decision Making Medical Records Screening: Per USPSTF and CDC recommendations, given the prevalence of disease in our region, it is our hospital?s policy to screen for HIV and viral Hepatitis for all patients aged 18 and over and those with ongoing risk factors. Cesar Inquiry Pt receiving controlled substance: No Vital Signs: 02/07/25 12:47 02/07/25 12:47 02/07/25 13:17 Temperature 98.0 F 98.0 F Temperature Source Oral Pulse Rate 122 H 126 H Pulse Rate [Right] 122 H Respiratory Rate 20 20 Blood Pressure 186/102 H 176/67 H Blood Pressure [Right Arm] 186/102 H Blood Pressure Mean [Right Arm] 130 02 Sat by Pulse Oximetry 95 95 96 Oxygen Delivery Method Nasal Cannula Nasal Cannula Oxygen Flow Rate (LPM) 3 3 02/07/25 14:37 Temperature 98.1 F Temperature Source Pulse Rate 70 Pulse Rate [Right] Respiratory Rate 20 Blood Pressure 127/80 Blood Pressure [Right Arm] Blood Pressure Mean [Right Arm] 02 Sat by Pulse Oximetry Oxygen Delivery Method Room Air Oxygen Flow Rate (LPM) Lab Data Lab Results 02/07/25 13:05: WBC 7.8, RBC 4.33, Hgb 12.5, Hct 39.7, MCV 91.7, MCH 28.9, MCHC 31.5 L, RDW 13.1, Plt Count 296, MPV 9.9, Neut % (Auto) 75.8, Lymph % (Auto) 15.9, [place] % (Auto) 5.6, Eos % (Auto) 2.0, Baso % (Auto) 0.4, Neut # (Auto) 5.9, Lymph # (Auto) 1.2, [place] # (Auto) 0.4, Eos # (Auto) 0.2, Baso # (Auto) 0.0, Sodium 139, Potassium 3.9, Chloride 99, Carbon Dioxide 31 H, Anion Gap 12.9, BUN 15, Creatinine 0.90, Estimated Creat Clear 65, Estimated GFR 60, Est GFR ( Amer) 73, Glucose 146 H, Calcium 9.4, Magnesium 1.6, Total Bilirubin 0.3, AST 32, ALT 20, Alkaline Phosphatase 78, Total Protein 7.7, Albumin 4.4, G lobulin 3.3 H, Albumin/Globulin Ratio 1.3, Procalcitonin 0.047 02/07/25 13:14: Urine Color Yellow, Urine Appearance Clear, Urine pH 6.0, Ur Specific [place] <= 1.005, Urine Protein Negative, Urine Glucose (UA) Negative, Urine Ketones Negative, Urine Blood Trace-i, Urine Nitrate Negative, Urine Bilirubin Negative, Urine Urobilinogen 0.2, Ur Leukocyte Esterase Negative, Urine RBC Occasional, Urine WBC 5-10, Ur Squamous Epith Cells 3-5, Urine Bacteria Trace 02/07/25 13:16: VBG pH 7.37, VBG pCO2 54.8 H, VBG pO2 60.0 H, VBG HCO3 31.0 H, V BG Total CO2 32.7 H, VBG O2 Saturation 90.5 H, VBG Base Excess 5.7 H, VBG Lactic Acid 2.2 H 02/07/25 13:05 02/07/25 13:05 Orders (Tests/Meds): ED MEDICATIONS Discontinued Medications Generic Name Dose Route Start Last Admin Trade Name Freq PRN Reason Stop Dose Admin Sodium Chloride 1,000 mls @ 999 mls/hr 02/07/25 12:47 02/07/25 13:42 Sod Chlor 0.9% 1000ml Bag IV 02/07/25 13:47 999 mls/hr .Q1H1M ONE Administration ORDERS Category Date Time Status CBC w/Auto Diff [Complete Blood Count Auto Diff] Stat Lab 02/07/25 13:05 Completed CMP [Comprehensive Metabolic Panel] Stat Lab 02/07/25 13:05 Completed Magnesium Stat Lab 02/07/25 13:05 Completed Procalcitonin Stat Lab 02/07/25 13:05 Completed Urinalysis and Microscopic Stat Lab 02/07/25 13:14 Completed VBG PH Stat Lab 02/07/25 13:09 Stop Req Blood Culture Stat Micro 02/07/25 13:40 Received Venous Blood Gas Routine RT 02/07/25 13:16 Completed Medical Decision Narrative: Initial impression of presenting illness: 84-year-old female presents emergency department the request of her primary care provider for evaluation of recurrent urinary tract infections. Family reports patient just finished a round of Keflex for treatment of UTI with her recent culture growing out E. coli. They also report patient has had ongoing diarrhea for the past couple of months. Patient has a history of COPD and wears 3 L nasal cannula at baseline. Differential diagnosis includes but is not limited to: Urinary tract infection, pyelonephritis, urosepsis, C. difficile, gastroenteritis Patient arrives hemodynamically stable, afebrile, without respiratory distress with vital signs interpreted by myself. Initial physical exam unremarkable. Abdomen is soft nontender with normal active bowel sounds. Initial diagnostic plan: Laboratory studies including urinalysis, GI panel, sepsis workup, normal saline bolus for hydration. We are attempting to contact patient's primary care provider to get a copy of her recent urinalysis with culture and sensitivity report. Will hold on any antibiotic treatment until we receive a copy of this report. Results from initial plan were reviewed and interpreted by myself, pertinent positives include: Laboratory studies including urinalysis were nonactionable. Interventions in the ED: Patient was given normal saline bolus for hydration. Patient has urinated several times here in the emergency department however she still states he feels like she needs to go after she just finishes urinating. We did 2 postvoid residuals on 2 different urination episodes. The first postvoid was approximately 220 mL with a second postvoid 183 mL. It appears the patient is having acute urinary retention. We anchored a Renner catheter for her urinary retention. Patient was made aware of the results and the findings, upon reevaluation patient has remained stable throughout stay, symptoms remain stable. Upon reevaluation patient is resting comfortably in bed with no signs of acute distress. Consultation/discussion with other physicians: Discussed patient's presenting complaint as well as workup findings with ED attending Dr. Chavez Disposition: Advised patient that we will discharge home with a Renner catheter for acute urinary retention. Informed her that we will give him contact information for urology and recommended they contact their office first thing tomorrow morning to schedule close outpatient follow-up. Recommended continue with all previously prescribed medications. Instructed them to return to the emergency department if patient develops lower abdominal pain, fevers as this could be signs of a urinary tract infection. Recommend that they also follow with patient's PCP. Patient made aware of findings and had a detailed discussion with symptomatic care and return precautions, patient voiced understanding. Nursing staff went to patient's room to place the previously agreed-upon Renner catheter however patient stated that she needed to void again. Nursing staff assisted her to the bedside commode where she voided. They repeated a postvoid residual that was now only 63 mL. Patient now refuses Renner catheter states she does not want to go home with it. Advised patient that if she still has frequent urination and feels the urge to urinate she should return to the emergency department or follow-up with the urologist that I had previously given her contact information for. Critical Care Critical Care Time Critical Care Time: No
[2025-02-07 12:47] VITALS: BP 186/102; PULSE 122; RESP 20; TEMP 36.7; O2SAT 95; BMI 36.0
[2025-02-07 13:17] VITALS: BP 176/67; PULSE 126; O2SAT 96
[2025-02-07 13:17] LABS: Microscopic, Urine URINE MICROSCOPIC (MICROSCOPIC)
[2025-02-07 13:17] LABS: Hematocrit 39.7 % (37.0-47.0); Hemoglobin 12.5 g/dL (12.2-16.2); Immature Granulocytes % 0.3 %; Mean Corpuscular HGB Conc 31.5 g/dL (31.8-35.4); Mean Corpuscular Hemoglobin 28.9 pg (27.0-31.2); Mean Corpuscular Volume 91.7 fl (81-99); Nucleated Red Blood Cells % 0 %; Platelet Count 296 K/mm3 (142-424); Red Blood Count 4.33 M/mm3 (4.20-5.40); Red Cell Distribution Width-SD 45.0 fL; White Blood Count 7.8 K/mm3 (4.8-10.8)
[2025-02-07 13:19] LABS: VBG HCO3 31.0 mmol/L (23-30); VBG PH 7.37 mmol/L (7.31-7.41); VBG PO2 60.0 mmol/L (28-40)
[2025-02-07 13:21] LABS: Albumin Level 4.4 g/dl (3.5-5.0); Chloride 99 mmol/L (98-107); Potassium 3.9 mmoL/L (3.5-5.1); Sodium 139 mmol/L (136-145)
[2025-02-07 13:23] LABS: Bilirubin,Urine Negative (Negative); Color,Urine YELLOW (Yellow); Glucose,Urine (UA) Negative (Negative); Ketones,Urine Negative (Negative); Leukocyte Esterase,Urine Negative (Negative); PH,Urine 6.0 (5.0-8.5); Protein,Urine Negative (Negative); Specific Gravity, Urine <= 1.005 (1.005-1.030); Urobilinogen,Urine 0.2 EU/dl (0.2)
[2025-02-07 13:24] LABS: Alanine Aminotransferase 20 U/L (12-78); Albumin/Globulin Ratio 1.3 (1.1-1.8); Alkaline Phosphatase 78 U/L (38-126); Anion Gap 12.9 mEq/L (5-15); Aspartate Amino Transferase 32 U/L (14-36); Bilirubin,Total 0.3 mg/dl (0.2-1.3); Blood Urea Nitrogen 15 mg/dl (7-17); Carbon Dioxide 31 mmol/L (22.0-30.0); Creatinine Clearance Estimated 65 mL/min (50-200); Creatinine,Serum 0.90 mg/dl (0.52-1.04); Estimated Glomerular Filt Rate 60 ml/min (>60); GFR (African American) 73 ML/MIN (>60); Globulin 3.3 g/dL (1.3-3.2); Total Protein,Serum 7.7 g/dl (6.3-8.2)
[2025-02-07 13:24] LABS: Lactate Venous 2.2 mmol/L (0.4-2.0); VBG PCO2 54.8 mmol/L (35-51)
[2025-02-07 13:25] LABS: Calcium 9.4 mg/dl (8.4-10.2); Glucose 146 mg/dl (74-100); Magnesium 1.6 mg/dl (1.6-2.3)
[2025-02-07 13:41] LABS: Procalcitonin 0.047 ng/mL (0.0-2.0)
[2025-02-07] MEDS: 0.9 % SODIUM CHLORIDE 1000ML 1,000 ML 999 ML IV (13:42)
[2025-02-07 13:49] LABS: Bacteria,Urine Trace /lpf; RBC,Urine Occasional #/hpf (0-3)
[2025-02-07 14:37] VITALS: BP 127/80; PULSE 70; RESP 20; TEMP 36.7; O2SAT 98
--- NOTE | 2025-02-07 14:48 | PC.NURSE ---
wrong d/c charted on patient
--- NOTE | 2025-02-07 16:13 | PC.NURSE ---
post void residual 183ml
[2025-02-07 17:00] VITALS: BP 155/98; PULSE 93; RESP 18; TEMP 36.8; O2SAT 98
[2025-02-07 17:18] LABS: Reflex Lactic Add Lactic Reflex
== END 2025-02-07 17:10 | disposition home or self-care (01) ==
PROVIDERS: Nurse Practitioner Family; Student in an Organized Health Care Education/Training Program; Emergency Provider Student in an Organized Health Care Education/Training Program; PCP Internal Medicine
DX: R33.8 Other retention of urine (principal)
CPT/HCPCS: 80053; 81001; 82803; 83735; 84145; 85025; 87040; 99284; 99285; J7030

== ENCOUNTER 2025-04-16 11:30 | Outpatient (CLI) | payer MEDICARE, BC, SELFPAY ==
[2025-04-16 14:13] LABS: Alanine Aminotransferase 14 U/L (12-78); Albumin Level 4.1 g/dl (3.5-5.0); Albumin/Globulin Ratio 1.3 (1.1-1.8); Alkaline Phosphatase 76 U/L (38-126); Anion Gap 11.3 mEq/L (5-15); Aspartate Amino Transferase 23 U/L (14-36); Bilirubin,Total 0.4 mg/dl (0.2-1.3); Blood Urea Nitrogen 18 mg/dl (7-17); Calcium 9.4 mg/dl (8.4-10.2); Carbon Dioxide 33 mmol/L (22.0-30.0); Chloride 101 mmol/L (98-107); Creatinine,Serum 0.90 mg/dl (0.52-1.04); Estimated Glomerular Filt Rate 60 ml/min (>60); GFR (African American) 73 ML/MIN (>60); Globulin 3.2 g/dL (1.3-3.2); Glucose 104 mg/dl (74-100); Potassium 5.3 mmoL/L (3.5-5.1); Sodium 140 mmol/L (136-145); Total Protein,Serum 7.3 g/dl (6.3-8.2)
[2025-04-16 14:42] LABS: Thyroid Stimulating Hormone 0.65 uIU/mL (0.465-4.68)
--- OUTSIDE RECORDS SUMMARY | 2025-04-17 21:01 | XMS_ITS | Continuity of Care Document ---
[facility] Organization [facility] Address [address] [place] [address] Assessment No assessment recorded. Plan of Treatment Reminders Order Date Submit Date Provider Last Modified By Organization Details Last Modified Time Details Appointments None recorded. Lab urinalysis, dipstick 2024 025 [facility], [address] [place] [address], [id number], 13:26:58 culture, urine [address] [facility], [address] [facility], [facility], [place], [address], 09:59:48 Referral pain management referral 2024 025 CLEOPATRA Saldana MD, [address], [facility], [address], 04:09:17 Procedures None recorded. Surgeries None recorded. Imaging None recorded. Medication Orders prednisone 10 mg tablet 2024 025 [facility] [id number], [address] [place], [address], 05:01:54 acyclovir 800 mg tablet 2024 025 [facility] [id number], [address], [address], 10/14/202 5 05:01:58 Patient TargetsNo targets recorded. Patient InstructionsNo instructions recorded. Reason for Referral Pain Management Referral for Herpes zoster Referring Physician: Bran Rose, Family Medicine, Encounter Date: 03/12/2025 Results Created Date Observation Date Name Description Value Unit Range Abnormal Flag Note LastModifiedBy Organization Detail LastModifiedTime Result Notes None recorded. Problems Name Problem SNOMED Code Status Onset Date Resolution Date Notes Provider Name and Address Organization Details Recorded Time Chronic obstructive pulmonary disease 61103159 Active 2021 Roxannamodestolaure RoseTEMIN [address], [place], [address], [place] - [facility] 2 14:33:11 Hypothyroid ism 10010987 Active 2021 Roxannaakbar LUCILA andersen [address], [place], [address], [place] - [facility] 2 14:33:13 Anxiety 05960763 Active 2021 Roxannaakbar LUCILA andersen [address], [place], [address], [place] - [facility] 2 14:33:09 Vitamin D deficiency 94058592 Active 2022 Roxannamodestolaure OrtizjoycelynnolanLUCILA [address], [place], [address], [place] - [facility] 3 13:48:03 Dependence on supplementa l oxygen 555261606360 Active 2022 Roxannaakbar LUCILA andersen [address], [place], [address], [place] - [facility] 3 13:49:49 Anemia 280800498 Active 2023 Roxannaakbar TEMI andersenN [address], [place], [address], [place] - [facility] 4 13:29:50 Problem Notes None recorded. Procedures Surgical History Date Name Laterality Status Provider Name and Address Organization Details Recorded Time 07/12/19 24 Cerumen Removal completed Bertha Greenberg [place] - [facility] 07/12/2023 17:37:09 Ear Tubes - Tympanostomy Tubes completed Beba Stears [place] - [facility] 02/08/2022 13:58:38 Imaging Results None recorded. Procedure Notes None recorded. Medical Equipment None Reported. Allergies Allergen ID Allergen Name Allergen Category Reaction Reaction Severity Criticality Documentation Date Start Date Code Code System Note Provider Name and Address Organization Details Recorded Time 119058 codeine medicatio n Not available Not available Not available 02/08/2022 2670 RxNorm Beba Jimenez null, [place] - [facility] 13:54:04 751611 Substance with sulfonami de structure and antibacte rial mechanism of action (substanc e) medicatio n Not available Not available Not available 02/10/2022 57274 8003 SNOMED Beba Poojas null, [place] - [facility] 09:55:18 Medications Name Sig Start Date Stop Date Status Note LastModified by Organization Details LastModified Time amoxicillin 500 mg capsule Take 1 capsule twice a day by oral route for 10 days. 05/14 completed Not Available Not Available Not Available buspirone 5 mg tablet Take 1 tablet twice a day by oral route as needed for 15 days. 02/16 completed Not Available Not Available Not Available prednisone 10 mg tablet Take 1 tablet twice a day by oral route for 5 days. 03/24 completed Not Available Not Available Not Available oxazepam 10 mg capsule TAKE ONE CAPSULE BY MOUTH THREE TIMES DAILY MAY CAUSE DROWSINES S active Not Available Not Available No t Available doxycycline hyclate 100 mg capsule Take 1 capsule twice a day by oral route for 10 days. 05/31 completed Not Available Not Available Not Available azithromyci n 250 mg tablet TAKE 2 TABLETS BY MOUTH ON DAY 1, THEN TAKE 1 TABLET DAILY ON DAYS 2-5 08/24 completed Not Available Not Available Not Available fluconazole 150 mg tablet 05/14 completed Not Available Not Available Not Available Claritin 10 mg tablet Take 1 tablet every day by oral route, for allergies . 2023 active Not Available Not Available Not Avai lable prednisone 20 mg tablet Take 1 tablet twice a day by oral route for 5 days. 05/14 completed Not Available Not Available Not Available Synthroid 100 mcg tablet Take 1 tablet every day by oral route. active Not Available Not Available No t Available clopidogrel 75 mg tablet TAKE ONE TABLET BY MOUTH EVERY DAY 06/16 completed Not Available Not Available Not Available acyclovir 800 mg tablet Take 1 tablet 5 times a day by oral route for 7 days. 03/26 completed Not Available Not Available Not Available ceftriaxone 1 gram solution for injection Take 1 g by injection route. 01/25 completed Not Available Not Available Not Available oxazepam 15 mg capsule Take 1 capsule every day by oral route for 30 days. 01/29 completed Not Available Not Available Not Available Diflucan 100 mg tablet Take 1 tablet every day by oral route. 2024 active Not Available Not Available Not Avai lable cephalexin 500 mg capsule Take 1 capsule 3 times a day by oral route for 7 days. 02/12 completed Not Available Not Available Not Available pantoprazol e 40 mg tablet,tino yed release TAKE ONE TABLET BY MOUTH EVERY DAY 06/16 completed Not Available Not Available Not Available nystatin 100,000 unit/gram topical cream APPLY TO THE AFFECTED AREA(S) BY TOPICAL ROUTE 2 TIMES PER DAY 05/14 completed Not Available Not Available Not Available aspirin 81 mg chewable tablet chew AND swallow 1 TABLET BY MOUTH EVERY DAY 06/16 completed Not Available Not Available Not Available hydrocortis one 2.5 % topical cream APPLY TOPICALLY TO THE AFFECTED AREA(S) TWICE DAILY FOR UP TO 14 DAYS 10/29 completed Not Available Not Available Not Available mupirocin 2 % topical ointment APPLY A SMALL AMOUNT TO THE AFFECTED AREA BY TOPICAL ROUTE 3 TIMES PER DAY 06/16 completed Not Available Not Available Not Available nystatin 100,000 unit/gram topical powder APPLY TO THE AFFECTED AREA(S) BY TOPICAL ROUTE 2 TIMES PER DAY active Not Available Not Available No t Available levalbutero l 1.25 mg/3 mL solution for nebulizatio n INHALE THE CONTENTS OF 1 VIAL VIA NEBULIZER EVERY 8 HOURS active Not Available Not Available No t Available dexamethaso ne sodium phosphate 4 mg/mL injection solution Inject 1 mL every day by intramusc ular route. 05/31 completed Not Available Not Available Not Available lorazepam 1 mg tablet TAKE ONE TABLET BY MOUTH THREE TIMES DAILY NEEDED FOR ANXIETY MAY CAUSE DROWSINES S active Not Available Not Available No t Available levofloxaci n 500 mg tablet Take 1 tablet every day by oral route for 5 days. 10/29 completed Not Available Not Available Not Available ketoconazol e 2 % topical cream APPLY TO THE AFFECTED AREA(S) BY TOPICAL ROUTE ONCE DAILY x2week 05/14 completed Not Available Not Available Not Available cefdinir 300 mg capsule Take 1 capsule every 12 hours by oral route for 7 days. 02/21 completed Not Available Not Available Not Available fluticasone propionate 50 mcg/actuati on nasal spray,suspe nsion [place] 1 spray every day by intranasa l route. active Not Available Not Available No t Available Ventolin HFA 90 mcg/actuati on aerosol inhaler active Not Available Not Available Not Available nitrofurant oin monohydrate /macrocryst als 100 mg capsule TAKE ONE CAPSULE BY MOUTH TWICE DAILY with meals FOR 7 DAYS -- FINISH ALL MEDICINE -- 01/27 completed Not Available Not Available Not Available ramelteon 8 mg tablet TAKE ONE TABLET BY MOUTH EVERY DAY AT BEDTIME active Not Available Not Available No t Available ferrous sulfate 324 mg (65 mg iron) tablet,tino yed release TAKE ONE TABLET BY MOUTH THREE TIMES DAILY (WITH MEALS) active Not Available Not Available No t Available roflumilast 500 mcg tablet 1 qd active Not Available Not Available Not Available Trelegy Ellipta 100 mcg-62.5 mcg-25 mcg powder for inhalation INHALE 1 PUFF BY MOUTH EVERY DAY 01/29 completed Not Available Not Available Not Available roflumilast 250 mcg tablet TAKE ONE TABLET BY MOUTH EVERY DAY 06/16 completed Not Available Not Available Not Available Trelegy Ellipta 200 mcg-62.5 mcg-25 mcg powder for inhalation Inhale 1 puff every day by inhalatio n route. 2024 active lot ([id number], exp 02/10 Not Available Not Available Not Available Paxlovid 300 mg (150 mg x 2)-100 mg tablets in a dose pack TAKE 3 TABLETS BY MOUTH TWICE DAILY FOR 5 DAYS 06/16 completed Not Available Not Available Not Available Vitals Date Recorded Body height Body temperature Heart rate Oxygen saturation Oxygen saturation in Arterial blood by Pulse oximetry Inhaled oxygen flow rate Respiratory rate Pain severity - 0-10 verbal numeric rating [Score] - Reported Systolic And Diastolic Provider Name and Address Organization Details Last Updated DateTime 5 170.18 cm 97.1 [degF] 110 /min 96 % 96 % 3 L/min 22 /min 0 132/80 mm[Hg] Bertha Greenberg [place] - [facility] 5 16:38:06 Social History Question Answer Notes LastModified by Organizat ion Details LastModified Time Tobacco Smoking Status Former Smoker Beba roland, [place] - [facility] 02/08/2022 13:56:55 Do You Have An Advance Directive? Yes Information not available 02/08/2022 Are You Blind Or Do You Have Difficulty Seeing? No Ears Glasses Information not available 02/08/2022 What Is Your Level Of Caffeine Consumption? None Information not available 02/08/2022 In The 14 Days Before Symptom Onset, Have You Had Close Contact With A Laboratory-confir med COVID-19 While That Case Was Ill? No Information not available 08/25/2023 In The 14 Days Before Symptom Onset, Have You Had Close Contact With A Person Who Is Under Investigation For COVID-19 While That Person Was Ill? No Information not available 08/25/2023 Have You Been To An Area Known To Be High Risk For COVID-19? No Information not available 08/25/2023 Are You Deaf Or Do You Have Serious Difficulty Hearing? Yes Information not available 02/08/2022 What Type Of Diet Are You Following? REGULAR Information not available 02/08/2022 Have You Processed Blood Or Body Fluids From An Ebola Virus Disease Patient Without Appropriate PPE? No Information not available 08/25/2023 Do You Reside In Or Have You Traveled To An Area Where Ebola Virus Transmission Is Active? No Information not available 08/25/2023 What Is The Highest Grade Or Level Of School You Have Completed Or The Highest Degree You Have Received? [id number] Information not available 02/08/2022 Have There Been Any Changes To Your Family Or Social Situation? No Information no t available 02/08/2022 What Is The Fluoride Status Of Your Home? Unknown Information not available 02/08/2022 Have You Recently Or Are You Planning To Travel To An Area With Zika Virus? No Information not available 08/25/2023 Do You Have A Medical Power Of Ordnance Artificer Helper? Yes Information not available 02/08/2022 What Was The Date Of Your Most Recent Tobacco Screening? 01/25/2025 Information not available 01/25/2025 What Is Your Relationship Status? Information not available 02/08/2022 Do You Have Smoke And Carbon Monoxide Detectors In Your Home? Yes Information not available 02/08/2022 At What Age Did You Start Smoking Tobacco? 18 Information not available 03/24/2023 Are You Passively Exposed To Smoke? No Information no t available 02/08/2022 How Much Tobacco Do You Smoke? No Information not available 07/12/2023 Has Tobacco Cessation Counseling Been Provided? No Information not available 03/24/2023 Do You Have Difficulty Walking Or Climbing Stairs? Yes Information not available 02/08/2022 Sex: Female Functional Status Question Answer Note LastModified by Mersiveat ion Details LastModified Time Do you use any illicit or recreational drugs? No Information not available 02/08/2022 Do you or have you ever used any other forms of tobacco or nicotine? No Information not available 01/27/2023 What is your level of alcohol consumption? None Information not available 02/08/2022 Are you currently employed? No Information not available 02/08/2022 Do you have transportation difficulties? No Information not available 02/08/2022 Are you able to walk independently without assistance or assistive devices? YESWOREST Information not available 02/08/2022 Do you have difficulty doing errands alone? Yes Information not available 02/08/2022 Are you able to care for yourself independently? Yes Information not available 02/08/2022 Do you have difficulty dressing, bathing, grooming, or toileting? No Information not available 02/08/2022 What is your exercise level? None Information not available 02/08/2022 Mental Status Question Answer Note LastModified by Organizat ion Details LastModified Time Do you feel stressed (tense, restless, nervous, or anxious, or unable to sleep at night)? [id number] Information not available 02/08/2022 Do you have difficulty concentrating, remembering or making decisions? No Information no t available 02/08/2022 Family History Relationship Description Onset Age of this Age Resolved Age Notes LastModified by Organization Details LastModified Time Father No current problems or disability [email or web address] Not available 02/08 13:56:29 Mother No current problems or disability bstears Not available 02/08 13:56:29 Medical History No medical history recorded. Gynecological History Statement/Question Response Date of Last Colonoscopy Date of Last Mammogram Most Recent Bone Density Menses Monthly N Date of Last Pap Smear LMP Unknown Obstetrics History GPAL:G 0 P 0 0 0 0 Immunizations Vaccine Type Date Status Note Provider Nam e and Address Organization Details Recorded Time COVID-19, mRNA, LNP-S, PF, 100 mcg/0.5mL dose or 50 mcg/0.25mL dose 1 completed Bertha Greenberg null, [place] - [facility] 07/15/2022 11:55:57 COVID-19, mRNA, LNP-S, PF, 100 mcg/0.5mL dose or 50 mcg/0.25mL dose 1 completed Bertha [place] null, [place] [facility] 07/15/2022 11:55:57 COVID-19, mRNA, LNP-S, PF, 100 mcg/0.5mL dose or 50 mcg/0.25mL dose 1 completed Bertha Greenberg null, [place] - [facility] 07/15/2022 11:55:57 pneumococcal polysaccharide PPV23 1 completed Bertha Greenberg null, [place] - [facility] 07/15/2022 11:55:57 pneumococcal polysaccharide PPV23 3 completed Bertha Greenberg [place] [facility] 07/15/2022 11:55:57 Tdap 6 completed Bertha Greenberg null, [place] - [facility] 07/15/2022 11:55:57 Pneumococcal conjugate PCV 13 6 completed Bertha Greenberg null, [place] - [facility] 07/15/2022 11:55:57 Influenza, high-dose, trivalent, PF 6 completed Bertha Greenberg null, [place] - [facility] 07/15/2022 11:55:57 Influenza, split virus, trivalent, preservative 4 completed Bertha Greenberg null, [place] - [facility] 07/15/2022 11:55:57 Influenza, split virus, trivalent, PF 3 completed Bertha Greenberg null, [place] - [facility] 07/15/2022 11:55:57 Influenza, split virus, trivalent, PF 0 completed Bertha Greenberg null, [place] - [facility] 07/15/2022 11:55:57 Td (adult), 2 Lf tetanus toxoid, preservative free, adsorbed 0 completed Bertha Greenberg null, [place] - [facility] 07/15/2022 11:55:57 Past Encounters Encounter ID Performer Location Encounter Start Date Encounter Closed Date Diagnosis/Indication Diagnosis SNOMED-CT Code Diagnosis ICD10 Code Diagnosis IMO Codes Diagnosis Note [id number] Bran Rose APRN [address] [address] 03/12/2025 16:17:55 03/12/2025 17:11:18 Herpes zoster 6534739 B02.9 [id number] meds as orderedif worsen or no improvemen t return Acute urin terry tract infection 305225220 N39.0 514985 increase fluidscran asencio juicewipe front to backvoid after intercours victorino not hold urinecotto n underwearp t took supplies home to obtain urineretur n if symptoms worsen or do not improve Health Concerns Section Related Observation LastModified by Organization Detai ls LastModified Time None Recorded Concern Status LastModified by Organization Details LastModified Time None Recorded Payers Encounter Date Sequence Insurance Name Policy Number Policy Boyle Covered Member ID Boyle Member ID Guarantor Name 03/12/2025 1 [place] Beba Casper [id number] Beba Casper 03/12/2025 2 [place] [id number] Beba Casper [id number] Beba Casper Notes Date Note Type Note Provider Name and Address Organization Details Recorded Time 03/12/2025 text/html ROS as noted in the HPI 84 yr old female presents for possible uti and possible shingles. pt states she has had pain in flank for a few days but noticed now she has rash with burning and pain.pt also having to urinate alot Bran Rose, FLOOR NURSE [address], [place], [address], [facility] - [facility] 03/15/2025 08:22:32 OBGyn Episode No OBEpisode recorded.
--- OUTSIDE RECORDS SUMMARY | 2025-04-17 21:01 | XMS_ITS | Data Portability ---
Author Organization DARLENE - FAIZA Cesar [facility] CLOSED Address [address] [place] [address] Assessment Encounter Date Assessment Date Assessment LastModified by Organization Details LastModified Time 09/07/2018 09/07/2018 RTC in 3 months. Not availab le 09/07/2018 12:15:19 12/07/2018 12/07/2018 RTC in 6 months. Not availab le 12/07/2018 11:17:02 05/29/2019 05/29/2019 RTC in 6 months. This note was transcribed with a combination of a scribe and voice recognition software. [email or web address] Not available 05/29/2019 10:37:11 11/21/2020 11/21/2020 Beba is a phone call follow-up of severe COPD. She's actually done very well over the past year between avoiding people due to scare of Covid 19 and taking her Trelegy and daliresp, she has not had any exacerbations. She continues on her oxygen. V isit today is being conducted via telephone only. Patient has expressed an understanding of this phone call as a visit and has consented. Patient is in the [facility]. 7 total minutes spent on phone communication and encounter with patient this encounter. [email or web address] Not available 11/21/2020 15:45:46 Plan of Treatment Reminders Order Date Submit Date Provider Last Modified By Organization Details Last Modified Time Details Appointments None recorded. Lab None recorded. Referral None recorded. Procedures None recorded. Surgeries None recorded. Imaging None recorded. Medication Orders roflumilas t 250 mcg tablet 2020 021 [facility], [facility] [address] [place], [id number], 1 15:49:15 Trelegy Ellipta 100 mcg-62.5 mcg-25 mcg powder for inhalation 2020 021 [facility], [address] [place] [address] [address] [place], [id number], 1 15:49:15 levalbuter ol 1.25 mg/3 mL solution for nebulizati on 2020 021 [facility], [address] [place] [address] [address] [place], [id number], 1 15:49:15 roflumilas t 250 mcg tablet 2018 019 [facility], [address] [place] [address] [address] [place], [id number], 9 10:32:48 Trelegy Ellipta 100 mcg-62.5 mcg-25 mcg powder for inhalation 2018 019 [facility], [address] [place] [address] [address] [place], [id number], 9 10:32:47 roflumilas t 500 mcg tablet 2018 019 [facility], [address] [place] [address] [address] [place], [id number], 1 15:41:02 Trelegy Ellipta 100 mcg-62.5 mcg-25 mcg powder for inhalation 2018 019 [facility], [address] [place] [address] [address] [place], [id number], 9 12:18:14 levalbuter ol 1.25 mg/3 mL solution for nebulizati on 2018 019 [email or web address], [address] [place] [address] [place] [address], [id number], 9 09:41:54 Patient TargetsNo targets recorded. Patient Instructions Encounter Date Encounter Id Patient Instructions Last Modified By Organization Details Last Modified Time 03/08/2018 [id number] pulse oximetry* [email or web address] Not available 03/08/2018 11:41:34 [...] Recorded Time Chronic obstructi ve pulmonary disease 09682495 Active 2015 From Automated Load;Provi timbo: Jesica Hopkins;Statu s: Active Not Available [facility] 6 08:41:07 Chronic hypoxemic respirato ry failure 135607443 Active 2018 MAU CHINCHILLA MD [address] [place] [address], [phone] , [facility] 9 12:12:12 Pulmonary emphysema 42121580 Active 2018 MAU CHINCHILLA MD [address] [place] [address], [phone] , [facility] 9 12:14:08 Severe chronic obstructi ve pulmonary disease 229879324 Active 2018 MAU CHINCHILLA MD [address] [place] [address], [phone] , [facility] 9 12:14:09 Problem Notes None recorded. Procedures Surgical History Date Name Laterality Status Provider Name and Address Organization Details Recorded Time 12/08/19 19 Demonstration Aerosol/Generator /Nebulizer/Optich morro completed Jessica Burkett [facility] 12/07/2018 11:23:05 07/05/19 17 Spirometry completed JESICA HOPKINS MD [address] [place], [address], [facility] 07/05/2016 16:08:34 Imaging Results None recorded. Procedure Notes None recorded. Medical Equipment None Reported. Allergies Allergen ID Allergen Name Allergen Category Reaction Reaction Severity Criticality Documentation Date Start Date Code Code System Note Provider Name and Address Organization Details Recorded Time 880706 codeine medicatio n Not available Not available Not available 05/07/20162013 2670 RxNorm Comme nt: Creat ed By: Jeanine SlaughterCrea keenan Date: 05/31 9:28: 21 AM; Not Available [facility] 6 09:29:41 [id number] Substance with sulfonami de structure and antibacte rial mechanism of action (substanc e) medicatio n nausea Not available Not available 05/07/20162012 36133 8003 SNOMED React ion: NAUSE A; Comme nt: Creat ed By: Jeanine Glasgow keenan Date: 03/29 12:30 :20 PM; Not Available [facility] 6 10:02:38 Medications Name Sig Start Date [...] t Available Vitals Date Recorded Body height Body mass index (BMI) Body weight Respiratory rate Heart rate Oxygen saturation Oxygen saturation in Arterial blood by Pulse oximetry Inhaled oxygen flow rate Systolic And Diastolic Provider Name and Address Organization Details Last Updated DateTime 9 165.1 cm 32.3 kg/m2 90643.9 2 g 18 /min 112 /min 96 % 96 % 3 L/min 128/62 mm[Hg] Jonelle Duffy [facility] 9 11:54:48 Date Recorded Body height Body mass index (BMI) Body weight Respiratory rate Oxygen saturation Oxygen saturation in Arterial blood by Pulse oximetry Inhaled oxygen flow rate Heart rate Systolic And Diastolic Provider Name and Address Organization Details Last Updated DateTime 9 165.1 cm 32.3 kg/m2 46913.9 2 g 16 /min 96 % 96 % 3 L/min 95 /min 98/60 mm[Hg] Sara Andrew [facility] 9 10:50:01 Date Recorded Body height Oxygen saturation Oxygen saturation in Arterial blood by Pulse oximetry Inhaled oxygen flow rate Heart rate Respiratory rate Systolic And Diastolic Provider Name and Address Organization Details Last Updated DateTime 8 165.1 cm 98 % 98 % 2 L/min 127 /min 16 /min 128/80 mm[Hg] Stephanie Mynor [facility] 8 11:05:04 Date Recorded Body height Body mass index (BMI) Body weight Heart rate Oxygen saturation Oxygen saturation in Arterial blood by Pulse oximetry Inhaled oxygen flow rate Respiratory rate Systolic And Diastolic Provider Name and Address Organization Details Last Updated DateTime 9 165.1 cm 31.6 kg/m2 08380.5 5 g 106 /min 97 % 97 % 3 L/min 18 /min 100/60 mm[Hg] Grace Quinn [facility] 9 10:12:04 Social History Question Answer Notes LastModified by Organizat ion Details LastModified Time Tobacco Smoking Status Former Smoker Grace Quinn [facility] 07/05/2016 11:26:53 When Did You Quit Smoking? 1-5yearssinc elastcigaret te [email or web address] Information not available 07/05/2016 What Was The Date Of Your Most Recent Tobacco Screening? 12/07/2018 Information n ot available 07/31/2019 How Much Tobacco Do You Smoke? 1.5 PPD [email or web address] Information not available 07/05/2016 How Many Years Have You Smoked Tobacco? 40 [email or web address] Information not available 07/05/2016 Sex: Unknown Functional Status None recorded. Mental Status None recorded. Family History Relationship Description Onset Age of this Age Resolved Age Notes LastModified by Organization Details LastModified Time Father No current problems or disability [email or web address] Not available 11:26:41 Mother No current problems or disability [email or web address] Not available 11:26:41 Medical History Condition Response Chronic Obstructive Pulmonary Disease Y Gynecological HistoryNo gynecological history recorded. Obstetrics History GPAL:G 0 P 0 0 0 0 Immunizations Vaccine Type Date Status Note Provider Nam e and Address Organization Details Recorded Time Influenza, high-dose, trivalent, PF 6 completed Grace Quinn [facility] 07/05/2016 11:25:08 Pneumococcal conjugate PCV 13 6 completed Grace Quinn [facility] 07/05/2016 11:25:47 pneumococcal polysaccharide PPV23 1 completed Grace Quinn [facility] 07/05/2016 11:26:04 Influenza, split virus, quadrivalent, preservative 8 completed Jonelle Duffy [facility] 09/07/2018 11:56:20 Influenza, split virus, quadrivalent, preservative 9 [facility] Grace Quinn [facility] 05/29/2019 10:16:10 Past Encounters Encounter ID Performer Location Encounter Start Date Encounter Closed Date Diagnosis/Indication Diagnosis SNOMED-CT Code Diagnosis ICD10 Code Diagnosis IMO Codes Diagnosis Note [id number] JESICA HOPKINS MD PULMONARY [address], [address] [place] [address] 07/05/2016 10:07:46 07/05/2016 18:59:28 Chronic obstructive pulmonary disease 80458698 J44.9 the patient has severe chronic obstructiv e airway disease. Her lungs are not infected. She is not bronchospa stic. Her medication s were reviewed. No medication changes were made. She is up-to-date with her influenza and pneumococc al vaccine. [id number] JESICA HOPKINS MD PULMONARY [address] [place] [address], [address] [place] [address] 07/05/2016 10:10:50 04/07/2017 03:46:46 [id number] JESICA HOPKINS MD PULMONARY [address] [place] [address], [address] [address] 01/03/2017 10:24:28 01/03/2017 13:36:40 Chronic obstructive pulmonary disease 63742166 J44.9 The patient has severe chronic obstructiv [...] Symbicort and I refilled her medication s. [id number] JESICA HOPKINS MD PULMONARY [address] [place] [address], [address] [place] [address] 1 01/03/2017 10:25:32 01/03/2017 20:39:16 [id number] JESICA HOPKINS MD PULMONARY [address] [place] [address], [place] [id number] 07/26/2017 12:48:23 07/26/2017 16:28:26 Chronic obstructive pulmonary disease 84347813 J44.9 .The patient is experienci ng an [...] should go to the emergency room in [place]. Low back pain 476143692 M54.5 the patient did not have low back pain. The prednisone was prescribed for an exacerbati on of her chronic obstructiv e airway disease. [id number] JESICA HOPKINS MD PULMONARY [address] [place] [address], [address] [address] 08/19/2017 11:00:24 08/20/2017 09:20:56 Chronic obstructive pulmonary disease 33582146 J44.9 the patient has severe chronic obstructiv [...] counseling . Chronic hy poxemic respiratory failure 553554793 J96.11 the patient is unable to not use oxygen now. She is on 2 L/m continuous ly and 3 L/m when she exercises. [id number] JESICA HOPKINS MD PULMONARY [address] [place] [address], [address] [place] [address] 10/28/2017 09:58:35 10/31/2017 17:22:49 Chronic obstructive pulmonary disease 51818978 J44.9 the patient has severe chronic obstructiv [...] with her about pulmonary rehabilita tion in [place]. Follow-up in the fall. [id number] JESICA HOPKINS MD PULMONARY [address], [address] [place] [address] 01/25/2018 10:02:42 01/26/2018 16:57:10 Chronic obstructive pulmonary disease 18955545 J44.9 the patient has severe chronic obstructiv [...] with her about pulmonary rehabilita tion in [place]. Follow-up in the fall. Date. 01/25/2018. The [...] at the pulmonary rehabilita tion program at [facility]. They will evaluate her suitabilit y for [...] debility is consistent with very severe COPD. [id number] JESICA HOPKINS MD PULMONARY [address], [address] [place] [address] 03/08/2018 10:11:43 03/08/2018 16:18:31 Chronic obstructive pulmonary disease 55407024 J44.9 the patient has severe chronic obstructiv [...] with her about pulmonary rehabilita tion in [place]. Follow-up in the fall. Date. 01/25/2018. The [...] at the pulmonary rehabilita tion program at [facility]. They will evaluate her suitabilit y for [...] are not infected. Follow-up in 6 months [id number] MAU CHINCHILLA MD PULMONARY [address], [address] [place] [id number] 09/07/2018 11:24:45 09/08/2018 08:10:03 Severe chronic obstructive pulmonary disease 768596910 J44.9 Severe. FEV1 0.8. End stage lung disease. Stopped smoking. UTD Vaccines. Continue trelegy. Changing duonebs to xopenex nebs due to tachycardi a with normal albuterol. Pulmonary emphysema 8743 3001 J43.9 DLCO 23% Chronic hy poxemic respiratory failure 956412485 J96.11 From Emphysema. Continue 3LPM all time. [id number] MAU CHINCHILLA MD PULMONARY [address] [place] [address], [address] [place] [address] 12/07/2018 10:25:04 12/08/2018 06:26:38 Severe chronic obstructive pulmonary disease 947352875 J44.9 Severe. FEV1 0.8. End stage lung [...] DLCO 23% Chronic hy poxemic respiratory failure 420556243 J96.11 From Emphysema. Continue 3LPM all time. [id number] MAU CHINCHILLA MD PULMONARY [address] [place] [address], [address] [place] [address] 05/29/2019 09:49:29 05/29/2019 11:53:34 Severe chronic obstructive pulmonary disease 524753099 J44.9 Severe. FEV1 0.8. End stage lung [...] DLCO 23% Chronic hy poxemic respiratory failure 523599088 J96.11 From Emphysema. Continue 3LPM all time. [id number] MAU CHINCHILLA MD PULMONARY [address], [address] [place] [address] 11/21/2020 14:44:31 11/21/2020 15:49:11 Severe chronic obstructive pulmonary disease 781895175 J44.9 Severe. FEV1 0.8. End stage lung [...] DLCO 23% Chronic hy poxemic respiratory failure 710981421 J96.11 From Emphysema. Continue 3LPM all time. Health Concerns Section Related Observation LastModified by Organization Detai ls LastModified Time None Recorded Concern Status LastModified by Organization Details LastModified Time None Recorded Advance Directives Directive None Recorded Payers Insurance Date Sequence Insurance Name Policy Number Policy Boyle Covered Member ID Boyle Member ID Guarantor Name 08/11/2017 2 [place] [id number] Beba Casper [id number] Beba Casper 05/07/2020 1 [place] Beba Casper [id number] Beba Casper 05/14/2024 2 [place] [id number] Beba Casper [id number] Beba Casper 05/13/2024 1 [place] Beba Casper [id number] Beba Casper Notes Date Note Type [...] her influenza vaccine tomorrow. JESICA HOPKINS MD [address] [place] [address], [phone], [facility] 03/08/2018 11:42:28 09/07/2018 text/html ROS as noted in the HPI Beba comes in for follow up of [...] but has to interrupt her breathing treatment half-way through due to tachycardia and anxiety and jitteriness. No chest pain, no fevers, no chills. She does not have frequent exacerbations. She is on 3 L/m at all times. MAU CHINCHILLA MD [address] [place] [address], [phone], [facility] 09/07/2018 12:16:50 12/07/2018 text/html ROS as noted in the [facility] comes in to follow-up severe COPD. She [...] all the time. MAU CHINCHILLA MD [address] [place], [address], [facility] 12/08/2018 02:37:56 05/29/2019 text/html Interval History: Beba is coming in today for a [...] and interpreted by physician: MAU CHINCHILLA MD [facility] [place], [address], [facility] 05/29/2019 10:37:32 OBGyn Episode No OBEpisode recorded.
--- OUTSIDE RECORDS SUMMARY | 2025-04-17 21:01 | XMS_ITS | Data Portability ---
Author Organization [facility] Address [address] [place] [address] Assessment No assessment recorded. Plan of Treatment Reminders Order Date Submit Date Provider Last Modified By Organization Details Last Modified Time Details Appointments None recorded. Lab urinalysis, dipstick 2024 025 [facility], [address] [place] [address], [id number], 13:26:58 culture, urine 2024 025 [facility], [address], Dipesh [address], [place], [address], 09:59:48 urinalysis, dipstick 2024 025 [facility], [address] [place] [address], [address], 11:19:43 culture, urine 2024 025 [place] [facility], [address], Dipesh [address], [place], [address], 13:06:55 hemoglobin (Hb), fingerstick , blood 2024 025 [facility], [address] [place] [address], [address], 11:11:10 iron + total iron-bindin g capacity (TIBC), serum 2024 025 [facility], [address], Dipesh [address], [place], [address], 5 16:08:20 vitamin B12, serum 2024 025 [facility], [address], [address]esh [address], [place], [address], 5 16:08:20 urinalysis, dipstick 2024 025 [facility], [address] [facility], [place], [address], 13:16:37 culture, urine 2024 025 [facility], [address], [address]esh [address], [place], [address], 5 16:08:21 vitamin D, 25-hydroxy, total, serum 2024 025 [facility], [address], [address]esh [address], [place], [address], 5 16:08:20 CBC w/ auto diff 2024 025 [facility], [address], [address]esh [address], [place], [address], 5 16:08:19 magnesium, serum or plasma 2024 025 [facility], [address], [address]esh [address], [place], [address], 5 16:08:21 TSH + free T4, serum 2024 025 [facility], [address], Dipesh F, [place], [address], 5 16:08:18 CMP, serum or plasma 2024 025 [facility], [address], [address]esh [address], [place], [address], 5 16:08:19 HbA1c (hemoglobin A1c), blood 2024 025 [facility], [address] [place] [address], [address], 5 15:56:47 urinalysis, dipstick 2024 025 [facility], [address] [place] [address], [address], 16:22:18 culture, urine 2024 025 [facility], [address], Dipesh [address], [place], [address], 5 01:06:20 Referral pain management referral 2024 025 [facility] Saldana MD, [address] [place] [address], [address], [address], 5 04:09:17 medication management referral 2024 025 [facility], [address] [place] [address], [place], [address], 09:25:02 Procedures None recorded. Surgeries None recorded. Imaging electrocard iogram 2024 025 [facility], [address] [place] [address], [address], 5 16:05:34 Medication Orders prednisone 10 mg tablet 2024 025 [facility] [id number], [address] [place] [address], [address], 5 05:01:54 acyclovir 800 mg tablet 2024 025 [facility] [id number], [address] [place] [address], [place], [address], 5 05:01:58 cefdinir 300 mg capsule 2024 025 [facility] [id number], [address] [place] [address], [place], [address], 5 05:01:59 cephalexin 500 mg capsule 2024 025 [facility] [id number], [address] [place] [address], [place], [address], 5 05:01:45 buspirone 5 mg tablet 2024 025 [facility] [id number], [address] [place] [address], [place], [address], 5 05:01:45 cephalexin 500 mg capsule 2024 025 [facility] [id number], [address] [place] [address], [place], [address], 5 05:01:45 ceftriaxone 1 gram solution for injection 2024 025 [email or web address] Not available 15:13:55 Patient TargetsNo targets recorded. Patient InstructionsNo instructions recorded. Reason for Referral Medication Management Referr al for Anxiety severe anxiety and trouble sleeping- takes oxazepam 10mg tid any suggestions?maybe change benzo? Referring Physician: [facility], Encounter Date: 01/29/2025 Pain Management Referral for Herpes zoster Referring Physician: [facility], Encounter Date: 03/12/2025 Results Created Date Observation Date Name Description Value Unit Range Abnormal Flag Note LastModifiedBy Organization Detail LastModifiedTime 10/30/19 25 11/01/2024 URINE CULTU RE, ROUTI NE urine culture, routine Final report abnormal Not Available [facility] ([facility]) [address] [facility], [place], [address], 11/01/2024 01:06:19 10/30/19 25 11/01/2024 URINE CULTU RE, ROUTI NE result 1 Escher ichia coli abnormal Cefaz toy with an BLANCA <=16 predi cts susce ptibi lity to the oral agent s cefac muriel, cefdi jose martin, cefpo doxim e, cefpr ozil, cefur oxime , cepha lexin , and lorac arbef when used for thera py of uncom plica keenan urina ry tract infec tions due to E. coli, Klebs iella pneum oniae , and Prote us mirab ilis. Multi -Drug Resis tant Organ ism Great er than 100,0 00 colon y formi ng units per mL Not Available [facility] ([facility]) [address] [facility], [place], [address], 11/01/2024 01:06:19 10/30/1911/01/2024 URINE CULTU RE, ROUTI NE antimicrobia l susceptibili ty Commen t S = Susce ptibl e; I = Inter media te; R = Resis tant P = Posit jerry; N = Negat jerry MICS are expre ssed in micro grams per mL Antib iotic RSLT# 1 RSLT# 2 RSLT# 3 RSLT# 4 Amoxi cilli n/Cla vulan ic Acid S Ampic illin I Cefaz toy S Cefep jackson S Cefox itin I Cefpo doxim e S Ceftr iaxon e S Cipro floxa dale R Ertap enem S Genta micin S Levof loxac in R Merop enem S Nitro furan toin S Piper acill in/Ta zobac grande S Tetra cycli ne S Tobra mycin S Trime thopr im/Verduzco lfa S Not Available [facility] ([facility]) [address] [facility], [place], [address], 11/01/2024 01:06:19 10/30/19 25 10/29/2024 urina lysis , dipst ick Leukocytes Large Not Available [address], [address], 10/29/2024 15:48:55 10/30/19 25 10/29/2024 urina lysis , dipst ick Nitrite positi ve Not Available [address], [address], 10/29/2024 15:48:55 10/30/19 25 10/29/2024 urina lysis , dipst ick Urobilinogen .2 Not Available Yonatan [address], [address], 10/29/2024 15:48:55 10/30/19 25 10/29/2024 urina lysis , dipst ick Protein Negati ve Not Available [address], [address], 10/29/2024 15:48:55 10/30/19 25 10/29/2024 urina lysis , dipst ick pH 5.5 Not Available [address], [address], 10/29/2024 15:48:55 10/30/19 25 10/29/2024 urina lysis , dipst ick Blood Modera te Not Available [address], [address], 10/29/2024 15:48:55 10/30/19 25 10/29/2024 urina lysis , dipst ick Specific [place] 1.020 Not Available [address], [address], 10/29/2024 15:48:55 10/30/19 25 10/29/2024 urina lysis , dipst ick Ketone Negati ve Not Available [address], [address], 10/29/2024 15:48:55 10/30/19 25 10/29/2024 urina lysis , dipst ick Bilirubin Negati ve Not Available [address], [address], 10/29/2024 15:48:55 10/30/19 25 10/29/2024 urina lysis , dipst ick Glucose Negati ve Not Available [address], [address], 10/29/2024 15:48:55 10/30/19 25 10/29/2024 urina lysis , dipst ick Appearance Clear Not Available [address], [address], 10/29/2024 15:48:55 10/30/19 25 10/29/2024 urina lysis , dipst ick Color Yellow Not Available [address], [address], 10/29/2024 15:48:55 01/26/20 25 01/25/2025 HbA1c (hemo globi n A1c), blood HbA1C 5.2 % Not Available [address], [address], 01/25/2025 15:34:15 01/30/20 25 01/30/2025 TSH+F REE T4 TSH 0.424 uIU/m L 0.450- 4.500 below low normal Not Available [facility] ([facility]) [address] [facility] [place], [address], 02/01/2025 16:08:18 01/30/20 25 01/30/2025 TSH+F REE T4 T4,free(dire ct) 1.57 NG/dL 0.82-1 .77 normal Not Available [facility] ([facility]) [address] [place], [address], 02/01/2025 16:08:18 01/30/20 25 01/30/2025 CBC WITH DIFFE RENTI AL/PL ATELE T WBC 10.3 x10e3 /uL 3.4-10 .8 normal Not Available [facility] ([facility]) [address] [place], [address], 02/01/2025 16:08:19 01/30/20 25 01/30/2025 CBC WITH DIFFE RENTI AL/PL ATELE T RBC 4.02 x10e6 /uL 3.77-5 .28 normal Not Available [facility] ([facility]) [address] [place], [address], 02/01/2025 16:08:19 01/30/20 25 01/30/2025 CBC WITH DIFFE RENTI AL/PL ATELE T hemoglobin 11.8 g/dL 11.1-1 5.9 normal Not Available [facility] ([facility]) [address] [place], [address], 02/01/2025 16:08:19 01/30/20 25 01/30/2025 CBC WITH DIFFE RENTI AL/PL ATELE T hematocrit 37.8 % 34.0-4 6.6 normal Not Available [facility] ([facility]) [address] [place], [address], 02/01/2025 16:08:19 01/30/20 25 01/30/2025 CBC WITH DIFFE RENTI AL/PL ATELE T MCV 94 fL 79-97 normal Not Available [facility] ([facility]) [address] [place], [address], 02/01/2025 16:08:19 01/30/20 25 01/30/2025 CBC WITH DIFFE RENTI AL/PL ATELE T MCH 29.4 pg 26.6-3 3.0 normal Not Available [facility] ([facility]) [address] [facility], [place], [address], 02/01/2025 16:08:19 01/30/20 25 01/30/2025 CBC WITH DIFFE RENTI AL/PL ATELE T MCHC 31.2 g/dL 31.5-3 5.7 below low normal Not Available [facility] ([facility]) [address] [facility], [place], [address], 02/01/2025 16:08:19 01/30/20 25 01/30/2025 CBC WITH DIFFE RENTI AL/PL ATELE T RDW 13.7 % 11.7-1 5.4 Not Available [facility] ([facility]) [address] [facility], [place], [address], 02/01/2025 16:08:19 01/30/20 25 01/30/2025 CBC WITH DIFFE RENTI AL/PL ATELE T platelets 342 x10e3 /uL 150-45 0 normal Not Available [facility] ([facility]) [address] [place], [address], 02/01/2025 16:08:19 01/30/20 25 01/30/2025 CBC WITH DIFFE RENTI AL/PL ATELE T neutrophils 80 % not estab. normal Not Available [facility] ([facility]) [address] [place], [address], 02/01/2025 16:08:19 01/30/20 25 01/30/2025 CBC WITH DIFFE RENTI AL/PL ATELE T lymphs 13 % not estab. normal Not Available [facility] ([facility]) [address] [place], [address], 02/01/2025 16:08:19 01/30/20 25 01/30/2025 CBC WITH DIFFE RENTI AL/PL ATELE T monocytes 5 % not estab. normal Not Available [facility] ([facility]) [address] [place], [address], 02/01/2025 16:08:19 01/30/20 25 01/30/2025 CBC WITH DIFFE RENTI AL/PL ATELE T eos 2 % not estab. normal Not Available [facility] ([facility]) [address] [place], [address], 02/01/2025 16:08:19 01/30/20 25 01/30/2025 CBC WITH DIFFE RENTI AL/PL ATELE T basos 0 % not estab. normal Not Available [facility] ([facility]) [address] [place], [address], 02/01/2025 16:08:19 01/30/20 25 01/30/2025 CBC WITH DIFFE RENTI AL/PL ATELE T immature cells LOGGING EQUIPMENT OPERATOR Not Available [facility] ([facility]) [address] [place], [address], 02/01/2025 16:08:19 01/30/20 25 01/30/2025 CBC WITH DIFFE RENTI AL/PL ATELE T neutrophils (absolute) 8.2 x10e3 /uL 1.4-7. 0 above high normal Not Available [facility] ([facility]) [address] [place], [address], 02/01/2025 16:08:19 01/30/20 25 01/30/2025 CBC WITH DIFFE RENTI AL/PL ATELE T lymphs (absolute) 1.3 x10e3 /uL 0.7-3. 1 normal Not Available [facility] ([facility]) [address] [place], [address], 02/01/2025 16:08:19 01/30/20 25 01/30/2025 CBC WITH DIFFE RENTI AL/PL ATELE T monocytes(ab solute) 0.5 x10e3 /uL 0.1-0. 9 normal Not Available [facility] ([facility]) [address] [facility], [place], [address], 02/01/2025 16:08:19 01/30/20 25 01/30/2025 CBC WITH DIFFE RENTI AL/PL ATELE T eos (absolute) 0.2 x10e3 /uL 0.0-0. 4 normal Not Available [facility] ([facility]) [address] [facility], [place], [address], 02/01/2025 16:08:19 01/30/20 25 01/30/2025 CBC WITH DIFFE RENTI AL/PL ATELE T baso (absolute) 0.0 x10e3 /uL 0.0-0. 2 normal Not Available [facility] ([facility]) [address] [place], [address], 02/01/2025 16:08:19 01/30/20 25 01/30/2025 CBC WITH DIFFE RENTI AL/PL ATELE T immature granulocytes 0 % not estab. Not Available [facility] ([facility]) [address] [place], [address], 02/01/2025 16:08:19 01/30/20 25 01/30/2025 CBC WITH DIFFE RENTI AL/PL ATELE T immature grans (abs) 0.0 x10e3 /uL 0.0-0. 1 Not Available [facility] ([facility]) [address] [place], [address], 02/01/2025 16:08:19 01/30/20 25 01/30/2025 CBC WITH DIFFE RENTI AL/PL ATELE T NRBC LOGGING EQUIPMENT OPERATOR Not Available [facility] ([facility]) [address] [place], [address], 02/01/2025 16:08:19 01/30/20 25 01/30/2025 CBC WITH DIFFE BRITNEY AL/PL ATELE T hematology comments: LOGGING EQUIPMENT OPERATOR Not Available [facility] ([facility]) [address] [facility], [place], [address], 02/01/2025 16:08:19 01/30/20 25 01/30/2025 COMP. METAB OLIC PANEL (14) glucose 93 mg/dL 70-99 normal Not Available [facility] ([facility]) [address] [facility] [place], [address], 02/01/2025 16:08:19 01/30/20 25 01/30/2025 COMP. METAB OLIC PANEL (14) BUN 10 mg/dL 8-27 normal Not Available [facility] ([facility]) [address] [place], [address], 02/01/2025 16:08:19 01/30/20 25 01/30/2025 COMP. METAB OLIC PANEL (14) creatinine 0.92 mg/dL 0.57-1 .00 normal Not Available [facility] ([facility]) [address] [facility], [place], [address], 02/01/2025 16:08:19 01/30/20 25 01/30/2025 COMP. METAB OLIC PANEL (14) eGFR 62 mL/mi n/1.7 3 >59 normal Not Available [facility] ([facility]) [address] [facility], [place], [address], 02/01/2025 16:08:19 01/30/20 25 01/30/2025 COMP. METAB OLIC PANEL (14) interpretati on: Commen t GFR estim ate at the follo wing level for >or=3 month s is class ified as follo ws: GFR WITH KIDNE Y DAMAG E WITHO UT KIDNE Y DAMAG E >or=9 0 Stage 1 Shauna l 60-89 Stage 2 Decr eased GFR 30-59 Stage 3 Stage 3 15-29 Stage 4 Stage 4 <15 (or dialy sis) Stage 5 Stage 5 Estim ated GFR will over estim ate true GFR if serum creat inine is risin g as in acute renal failu re and will under estim ate true GFR if serum creat inine is decli isidoro as in resol ving acute renal failu re. Addit ional infor hung mitzi may be found at www.k doqi. org. Not Available [facility] ([facility]) [address] [place], [address], 02/01/2025 16:08:19 01/30/20 25 01/30/2025 COMP. METAB OLIC PANEL (14) BUN/creatini ne ratio 11 12-28 below low normal Not Available [facility] ([facility]) [address] [place], [address], 02/01/2025 16:08:19 01/30/20 25 01/30/2025 COMP. METAB OLIC PANEL (14) sodium 138 mmol/ L 134-14 4 normal Not Available [facility] ([facility]) [address] [place], [address], 02/01/2025 16:08:19 01/30/20 25 01/30/2025 COMP. METAB OLIC PANEL (14) potassium 4.4 mmol/ L 3.5-5. 2 normal Not Available [facility] ([facility]) [address] [place], [address], 02/01/2025 16:08:19 01/30/20 25 01/30/2025 COMP. METAB OLIC PANEL (14) chloride 97 mmol/ L 96-106 normal Not Available [facility] ([facility]) [address] [place], [address], 02/01/2025 16:08:19 01/30/20 25 01/30/2025 COMP. METAB OLIC PANEL (14) carbon dioxide, total 23 mmol/ L 20-29 normal Not Available [facility] ([facility]) [address] [facility], [place], [address], 02/01/2025 16:08:19 01/30/20 25 01/30/2025 COMP. METAB OLIC PANEL (14) calcium 9.6 mg/dL 8.7-10 .3 normal Not Available [facility] ([facility]) [address] [facility], [place], [address], 02/01/2025 16:08:19 01/30/20 25 01/30/2025 COMP. METAB OLIC PANEL (14) protein, total 6.7 g/dL 6.0-8. 5 normal Not Available [facility] ([facility]) [address] [facility], [place], [address], 02/01/2025 16:08:19 01/30/20 25 01/30/2025 COMP. METAB OLIC PANEL (14) albumin 3.9 g/dL 3.7-4. 7 normal Not Available [facility] ([facility]) [address] [facility] [place], [address], 02/01/2025 16:08:19 01/30/20 25 01/30/2025 COMP. METAB OLIC PANEL (14) globulin, total 2.8 g/dL 1.5-4. 5 Not Available [facility] ([facility]) [address] [facility] [place], [address], 02/01/2025 16:08:19 01/30/20 25 01/30/2025 COMP. METAB OLIC PANEL (14) bilirubin, total 0.2 mg/dL 0.0-1. 2 normal Not Available [facility] ([facility]) [address] [facility] [place], [address], 02/01/2025 16:08:19 01/30/20 25 01/30/2025 COMP. METAB OLIC PANEL (14) alkaline phosphatase 75 IU/L 44-121 normal Not Available [facility]) [address] [facility], [place], [address], 02/01/2025 16:08:19 01/30/20 25 01/30/2025 COMP. METAB OLIC PANEL (14) AST (SGOT) 16 IU/L 0-40 normal Not Available [facility] ([facility]) [address] [facility] [place], [address], 02/01/2025 16:08:19 01/30/20 25 01/30/2025 COMP. METAB OLIC PANEL (14) ALT (SGPT) 9 IU/L 0-32 normal Not Available [facility] ([facility]) [address] [facility], [place], [address], 02/01/2025 16:08:19 01/30/20 25 01/30/2025 IRON AND TIBC iron bind.cap.(TI BC) 295 ug/dL 250-45 0 normal Not Available [facility] ([facility]) [address] [facility], [place], [address], 02/01/2025 16:08:19 01/30/20 25 01/30/2025 IRON AND TIBC UIBC 253 ug/dL 118-36 9 normal Not Available [facility] ([facility]) [address] [place], [address], 02/01/2025 16:08:19 01/30/20 25 01/30/2025 IRON AND TIBC iron 42 ug/dL 27-139 normal Not Available [facility] ([facility]) [address] [facility], [place], [address], 02/01/2025 16:08:19 01/30/20 25 01/30/2025 IRON AND TIBC iron saturation 14 % 15-55 below low normal Not Available [facility] ([facility]) [address] [place], [address], 02/01/2025 16:08:19 01/30/20 25 01/30/2025 VITAM IN D, 25-HY DROXY vitamin D, 25-hydroxy 35.7 NG/mL 30.0-1 00.0 Vitam in D defic iency has been defin ed by the Insti tute of Medic ine and an Endoc rine Socie ty pract ice guide line as a level of serum 25-OH vitam in D less than 20 ng/mL (1,2) . The Endoc rine Socie ty went on to furth er defin e vitam in D insuf ficie ncy as a level betwe en 21 and 29 ng/mL (2). 1. IOM (Inst itute of Medic ine). 2010. Jose Alejandro ry refer ence iram es for calci um and D. Meena frederick [place]: The [facility] . 2. Geoffrey lindsay MF, Mae long [place], Jay off-F errar i URRUTIA, et al. Evalu ation , treat ment, and preve ntion of vitam in D defic iency : an Endoc rine Socie ty clini pérez pract ice guide line. JCEM. 2010; 96(7) :1911 -30. Not Available [facility] ([facility]) [address] [place], [address], 02/01/2025 16:08:20 01/30/20 25 01/30/2025 VITAM IN B12 vitamin B12 >2000 pg/mL 232-12 45 above high normal Not Available [facility] ([facility]) [address] [place], [address], 02/01/2025 16:08:20 01/30/20 25 01/30/2025 MAGNE SIUM magnesium 1.9 mg/dL 1.6-2. 3 normal Not Available [facility] ([facility]) [address] [facility], [place], [address], 02/01/2025 16:08:21 01/30/20 25 02/01/2025 URINE CULTU RE, ROUTI NE urine culture, routine Final report abnormal Not Available [facility] ([facility]) [address] [place], [address], 02/01/2025 16:08:21 01/30/20 25 02/01/2025 URINE CULTU RE, ROUTI NE result 1 Escher ichia coli abnormal Cefaz toy with an BLANCA <=16 predi cts susce ptibi lity to the oral agent s cefac muriel, cefdi jose martin, cefpo doxim e, cefpr ozil, cefur oxime , cepha lexin , and lorac arbef when used for thera py of uncom plica keenan urina ry tract infec tions due to E. coli, Klebs iella pneum oniae , and Prote us mirab ilis. Multi -Drug Resis tant Organ ism Great er than 100,0 00 colon y formi ng units per mL Not Available [facility] ([facility]) [address] [facility], [place], [address], 02/01/2025 16:08:21 01/30/20 25 02/01/2025 URINE CULTU RE, ROUTI NE antimicrobia l susceptibili ty Commen t S = Susce ptibl e; I = Inter media te; R = Resis tant P = Posit jerry; N = Negat jerry MICS are expre ssed in micro grams per mL Antib iotic RSLT# 1 RSLT# 2 RSLT# 3 RSLT# 4 Amoxi cilli n/Cla vulan ic Acid S Ampic illin I Cefaz toy S Cefep jackson S Cefox itin I Cefpo doxim e S Ceftr iaxon e S Cipro floxa dale R Ertap enem S Genta micin S Levof loxac in R Merop enem S Nitro furan toin S Piper acill in/Ta zobac grande S Tetra cycli ne S Tobra mycin S Trime thopr im/Verduzco lfa S Not Available [facility] ([facility]) [address] [facility], [place], [address], 02/01/2025 16:08:21 01/30/20 25 01/29/2025 urina lysis , dipst ick Leukocytes Small Not Available [address], [address], 01/29/2025 11:10:56 01/30/20 25 01/29/2025 urina lysis , dipst ick Nitrite negati ve Not Available [address], [address], 01/29/2025 11:10:56 01/30/20 25 01/29/2025 urina lysis , dipst ick Urobilinogen .2 Not Available Yonatan [address], [address], 01/29/2025 11:10:56 01/30/20 25 01/29/2025 urina lysis , dipst ick Protein Negati ve Not Available [address], [address], 01/29/2025 11:10:56 01/30/20 25 01/29/2025 urina lysis , dipst ick pH 6.0 Not Available [address], [address], 01/29/2025 11:10:56 01/30/20 25 01/29/2025 urina lysis , dipst ick Blood Small Not Available [address], [address], 01/29/2025 11:10:56 01/30/20 25 01/29/2025 urina lysis , dipst ick Specific [place] 1.010 Not Available [address], [address], 01/29/2025 11:10:56 01/30/20 25 01/29/2025 urina lysis , dipst ick Ketone Negati ve Not Available [address], [address], 01/29/2025 11:10:56 01/30/20 25 01/29/2025 urina lysis , dipst ick Bilirubin Negati ve Not Available [address], [address], 01/29/2025 11:10:56 01/30/20 25 01/29/2025 urina lysis , dipst ick Glucose Negati ve Not Available [address], [address], 01/29/2025 11:10:56 01/30/20 25 01/29/2025 urina lysis , dipst ick Appearance Cloudy Not Available [address], [address], 01/29/2025 11:10:56 01/30/20 25 01/29/2025 urina lysis , dipst ick Color Yellow Not Available [address], [address], 01/29/2025 11:10:56 01/30/20 25 01/29/2025 hemog lobin (Hb), finge rstic k, blood HGB 12.6 Not Available [address], [id number], 01/29/2025 10:45:53 02/08/20 25 02/11/2025 URINE CULTU REOPHELIA urine culture, routine Final report abnormal Not Available [facility] ([facility]) [address] [facility], [place], [address], 02/11/2025 13:06:55 02/08/20 25 02/11/2025 URINE CULTU RE, ROUTI NE result 1 Escher ichia coli abnormal Cefaz toy with an BLANCA <=16 predi cts susce ptibi lity to the oral agent s cefac muriel, cefdi jose martin, cefpo doxim e, cefpr ozil, cefur oxime , cepha lexin , and lorac arbef when used for thera py of uncom plica keenan urina ry tract infec tions due to E. coli, Klebs iella pneum oniae , and Prote us mirab ilis. 50,00 0-100 ,000 colon y formi ng units per mL Not Available [facility] ([facility]) [address] [facility], [place], [address], 02/11/2025 13:06:55 02/08/20 25 02/11/2025 URINE CULTU RE, ROUTI NE antimicrobia l susceptibili ty Commen t S = Susce ptibl e; I = Inter media te; R = Resis tant P = Posit jerry; N = Negat jerry MICS are expre ssed in micro grams per mL Antib iotic RSLT# 1 RSLT# 2 RSLT# 3 RSLT# 4 Amoxi cilli n/Cla vulan ic Acid R Ampic illin R Cefaz toy S Cefep jackson S Cefox itin S Cefpo doxim e S Ceftr iaxon e S Cipro floxa dale S Ertap enem S Genta micin S Levof loxac in S Merop enem S Nitro furan toin S Piper acill in/Ta zobac grande S Tetra cycli ne S Tobra mycin S Trime thopr im/Verduzco lfa S Not Available [facility] ([facility]) [address] [facility], [place], [address], 02/11/2025 13:06:55 02/08/20 25 02/07/2025 urina lysis , dipst ick Leukocytes Trace Not Available Juan Diego [address], [address], 02/07/2025 10:51:07 02/08/20 25 02/07/2025 urina lysis , dipst ick Nitrite negati ve Not Available [address], [address], 02/07/2025 10:51:07 02/08/20 25 02/07/2025 urina lysis , dipst ick Urobilinogen .2 Not Available Yonatan [address], [address], 02/07/2025 10:51:07 02/08/20 25 02/07/2025 urina lysis , dipst ick Protein 30 Not Available [address], [address], 02/07/2025 10:51:07 02/08/20 25 02/07/2025 urina lysis , dipst ick pH 6.0 Not Available [address], [address], 02/07/2025 10:51:07 02/08/20 25 02/07/2025 urina lysis , dipst ick Blood Small Not Available [address], [address], 02/07/2025 10:51:07 02/08/20 25 02/07/2025 urina lysis , dipst ick Specific [place] 1.025 Not Available [address], [address], 02/07/2025 10:51:07 02/08/2002/07/2025 urina lysis , dipst ick Ketone Trace Not Available [address], [address], 02/07/2025 10:51:07 02/08/20 25 02/07/2025 urina lysis , dipst ick Bilirubin Negati ve Not Available [address], [address], 02/07/2025 10:51:07 02/08/20 25 02/07/2025 urina lysis , dipst ick Glucose Negati ve Not Available [address], [address], 02/07/2025 10:51:07 02/08/20 25 02/07/2025 urina lysis , dipst ick Appearance Clear Not Available [address], [address], 02/07/2025 10:51:07 02/08/20 25 02/07/2025 urina lysis , dipst ick Color Dark Yellow Not Available [address], [address], 02/07/2025 10:51:07 01/26/20 25 01/25/2025 elect rocar diogr am No observ ation record ed. efryman [address], [address], 01/28/2025 15:57:40 02/02/20 25 01/25/2025 elect rocar diogr am No observ ation record ed. [address], [address], 02/06/2025 09:14:18 Result Notes None recorded. Problems Name Problem SNOMED Code Status Onset Date Resolution Date Notes Provider Name and Address Organization Details Recorded Time Chronic obstructive pulmonary disease 62098602 Active 2021 Bran Rose, [facility] [address], [place], [address], [place] - [facility] 14:33:11 Hypothyroid ism 81769250 Active 2021 Bran Rose, [facility] [address], [place], [address], [place] - [facility] 2 14:33:13 Anxiety 63585011 Active 2021 Bran Rose, [facility] [address], [place], [address], [place] - [facility] 2 14:33:09 Vitamin D deficiency 12610556 Active 2022 Barn Rose, [facility] [address], [place], [address], [place] - [facility] 3 13:48:03 Dependence on supplementa l oxygen 538721473987 Active 2022 Bran Rose, [facility] [address], [place], [address], [place] [facility] 3 13:49:49 Anemia 375128143 Active 2023 Bran Rose, [facility] [address], [place], [address], [place] - [facility] 4 13:29:50 Problem [...] Name and Address Organization Details Recorded Time 800999 codeine medicatio n Not available Not available Not available 02/08/2022 2670 RxNorm Beba Stears null, [place] - [facility] 2 13:54:04 704286 Substance with sulfonami de structure and antibacte rial mechanism of action (substanc e) medicatio n Not available Not available Not available 02/10/2022 00731 8003 SNOMED Beba Stears null, [place] - [facility] 2 09:55:18 Medications Name Sig Start Date Stop [...] propionate 50 mcg/actuati on nasal spray,suspe nsion [place] 1 spray every day by intranasa l [...] Not Available Vitals Date Recorded Body height Respiratory rate Heart rate Oxygen saturation Oxygen saturation in Arterial blood by Pulse oximetry Body temperature Systolic And Diastolic Provider Name and Address Organization Details Last Updated DateTime 5 170.18 cm 22 /min 84 /min 94 % 94 % 97.9 [degF] 118/74 mm[Hg] Beba Stears [place] - [facility] 5 15:57:45 Date Recorded Body height Body temperature Oxygen saturation Oxygen saturation in Arterial blood by Pulse oximetry Heart rate Respiratory rate Systolic And Diastolic Provider Name and Address Organization Details Last Updated DateTime 5 170.18 cm 97.9 [degF] 93 % 93 % 140 /min 22 /min 122/68 mm[Hg] Beba Stears [place] - [facility] 5 15:13:48 Date Recorded Body height Heart rate Oxygen saturation Oxygen saturation in Arterial blood by Pulse oximetry Respiratory rate Body temperature Systolic And Diastolic Provider Name and Address Organization Details Last Updated DateTime 5 170.18 cm 80 /min 95 % 95 % 22 /min 97.8 [degF] 134/68 mm[Hg] Beba Jimenez [place] - [facility] 5 10:35:11 Date Recorded Body height Provider Name an d Address Organization Details Last Updated DateTime 02/07/2025 170.18 cm Bertha Greenberg [place] - [facility] 0 02/07/2025 10:52:50 Date Recorded Body height Body temperature Heart [...] Social History Question Answer Notes LastModified by Retslyat ion Details LastModified Time Tobacco Smoking Status Former Smoker Beba Jimenez [facility], [place] - [facility] 02/08/2022 13:56:55 Do You [...] Or The Highest Degree You Have Received? GP19096-3 Information not available 02/08/2022 Have There Been Any Changes To Your Family Or Social Situation? No Information no t available 02/08/2022 What Is The Fluoride Status Of Your Home? Unknown Information not available 02/08/2022 Have You Recently Or Are You Planning To Travel To An Area With Zika Virus? No Information not available 08/25/2023 Do You Have A Medical Power Of Press Officer? Yes Information not available 02/08/2022 What Was [...] Functional Status Question Answer Note LastModified by Organizat ion Details LastModified Time Do you use [...] anxious, or unable to sleep at night)? [id number] Information not available 02/08/2022 Do you have [...] dose or 50 mcg/0.25mL dose 1 completed DARLENE Tolliver - [facility] 07/15/2022 11:55:57 COVID-19, mRNA, LNP-S, PF, 100 mcg/0.5mL dose or 50 mcg/0.25mL dose 1 completed DARLENE Tolliver - [facility] 07/15/2022 11:55:57 COVID-19, mRNA, LNP-S, PF, 100 mcg/0.5mL dose or 50 mcg/0.25mL dose 1 completed Bertha Greenberg null, [place] - [facility] 07/15/2022 11:55:57 pneumococcal polysaccharide PPV23 1 completed Bertha Greenberg null, [place] - [facility] 07/15/2022 11:55:57 pneumococcal polysaccharide PPV23 3 completed Bertha Greenberg null, [facility] 07/15/2022 11:55:57 Tdap 6 completed Bertha Greenberg null, [facility] 07/15/2022 11:55:57 Pneumococcal conjugate PCV 13 6 completed Bertha Greenberg null, [facility] 07/15/2022 11:55:57 Influenza, high-dose, trivalent, PF 6 completed Bertha Greenberg null, [facility] 07/15/2022 11:55:57 Influenza, split virus, trivalent, preservative 4 completed Bertha Greenberg null, [facility] 07/15/2022 11:55:57 Influenza, split virus, trivalent, PF 3 completed Bertha Greenberg null, [facility] 07/15/2022 11:55:57 Influenza, split virus, trivalent, PF 0 completed Bertha Greenberg null, [facility] 07/15/2022 11:55:57 Td (adult), 2 Lf tetanus toxoid, preservative free, adsorbed 0 completed Bertha Greenberg null, [facility] 07/15/2022 11:55:57 Past Encounters Encounter ID Performer Location Encounter Start Date Encounter Closed Date Diagnosis/Indication Diagnosis SNOMED-CT Code Diagnosis ICD10 Code Diagnosis IMO Codes Diagnosis Note [id number] Bran Rose APRN [address] [address] 02/08/2022 13:13:05 02/08/2022 14:41:31 Diarrhea 51528596 R19.7 Acute urin terry tract infection 503875600 N39.0 return in 2 weeks for labs ( pt states she does not feel like getting labs today and check up Chronic ob structive pulmonary disease 34109629 J44.9 [id number] [place] [address] 07/15/2022 11:36:30 07/15/2022 12:03:53 Anemia 776335882 D64.9 hemoglobin low, tachycardi a, pale, soa, low 02- sent to ed for evaluation report to briana Acute urin terry tract infection 220883322 N39.0 sent to ed [id number] Bran Ortizganesh[address] [address] 01/27/2023 13:31:32 01/27/2023 13:50:26 Candidiasis of skin 07601530 B37.2 instructed pt on how to clean,appl y powder and gauze to keep skin from touching. [id number] Bran Ortizganesh[address] [address] 03/24/2023 13:18:59 03/24/2023 14:27:38 Anxiety 28343656 F41.9 Hypothyroidism 15264549 E03.9 Fatigue 86718827 R53.83 Anemia 404162168 D64.9 Vitamin D deficiency 347 43789 E55.9 Seasonal a llergic rhinitis 328866423 J30.2 Cellulitis 756754167 L03 .90 [id number] [facility] Ortizganesh[address] [address] 06/16/2023 11:17:55 06/16/2023 12:11:48 Allergic rhinitis 19962844 J30.9 [id number] [facility] Rose[address] [address] 07/12/2023 15:57:50 07/12/2023 17:13:35 Candidiasis of skin 52108829 B37.2 instructed pt on how to clean,appl y cream, Vaseline and gauze to keep skin from touching.p t states she is unable to keep area clean and dry. Impacted c erumen in right ear 2247102171 698843 H61.21 Seasonal a llergic rhinitis 569159196 J30.2 Chronic ob structive pulmonary disease 00449266 J44.9 Dependence on supplemental oxygen 2568554568 07 Z99.81 Self-bathi ng/hygiene deficit 26392412 Z74.1 will refer to for bathing assistance . [id number] [place] [address] 08/25/2023 11:13:24 08/25/2023 12:15:56 Upper respiratory infection 24414453 J06.9 Acute bronchitis 0568816 2 J20.9 Anemia 657263980 D64.9 Weakness present 3171539 07 M62.81 [id number] [facility] [place] [place] [address] 05/14/2024 13:15:27 05/14/2024 14:04:51 Acute bronchitis 95579944 J20.9 if symptoms worsen or no improvemen t return Acute maxi llary sinusitis 85173857 J01.00 follow up if no improvemen t Dependence on supplemental oxygen 8379129455 Z99.81 [id number] [facility] [place] [address] 05/31/2024 12:55:38 05/31/2024 13:46:52 Vitamin D deficiency 84368710 E55.9 Hypothyroidism 49872154 E03.9 Anemia 582617571 D64.9 Acute urin terry tract infection 284985543 N39.0 wait cx due to yeast infection form antibiotic sif symptoms worsen or no improvemen t return or go to ed Candidiasis of skin 4988 3006 B37.2 Muscle weakness 69839559 M62.81 [id number] [facility] Rose[address] [address] 10/29/2024 15:44:28 10/29/2024 16:49:57 Acute urinary tract infection 405502798 N39.0 786919 if symptoms worsen or no improvemen t return or go to ed [id number] Roxannamodestolaure [place] [address] [address] 01/25/2025 14:47:10 01/25/2025 15:54:03 Anxiety 98805520 F41.9 will start buspar at low dose- med discussed in detail- return if any concerns Hyperglycemia 23348401 R 73.01 519033 Tachycardia 7662092 R00. 0 12318 pt does not want to see cardiology at this time [id number] Roxannaakbar Rose [address] [address] 01/29/2025 10:18:14 01/29/2025 11:46:07 Anxiety 87540383 F41.9 working with pharm about ways to change meds to better control anxiety- will treat uti first while waiting to see what labs results are Hypothyroidism 13276158 E03.9 Vitamin D deficiency 347 43025 E55.9 Anemia 780286236 D64.9 Malaise and fatigue 2717 89945 R53.81 R53.83 44109 Confusional state 539031 003 R41.0 42636 Acute urin terry tract infection 311892442 N39.0 066346 increase fluidscran asencio juicewipe front to backvoid after intercours victorino not hold urineantib iotics as orderedcot ton underwearr eturn if symptoms worsen or do not improve [id number] Bran Rose [address] [address] 02/07/2025 10:51:14 02/07/2025 11:22:13 Urinary symptoms 344060414 R39.9 06991509 increase fluidscran asencio juicewipe front to backvoid after intercours victorino not hold urineantib iotics as orderedcot ton underwearr eturn if symptoms worsen or do not improve [id number] Roxannaakbar Rose [facility] [address] [address] 03/12/2025 16:17:55 03/12/2025 17:11:18 Herpes zoster 8663145 B02.9 48248022 meds as orderedif worsen or no improvemen t return Acute urin terry tract infection 117477660 N39.0 997527 increase fluidscran asencio juicewipe front to backvoid after intercours victorino not hold urinecotto n underwearp t took supplies home to obtain urineretur n if symptoms worsen or do not improve Health Concerns Section Related Observation LastModified by Organization Detai ls LastModified Time None Recorded Concern Status LastModified by Organization Details LastModified Time None Recorded Advance Directives Directive Y: Payers Insurance Date Sequence Insurance Name Policy Number Policy Boyle Covered Member ID Boyle Member ID Guarantor Name 03/14/2025 [employer] [place] [facility] (MEDICARE) Beba Casper [id number] Beba Casper 03/14/2025 1 [place] Beba Casper [id number] Beba Casper 03/13/2025 2 [place] [id number] Beba Casper [id number] Beba Casper Notes Date Note Type Note Provider Name and Address Organization Details Recorded Time 10/29/2024 text/html 84 year old female who presents to the office today with concerns of frequent urination, burning with urination Bran Rose, [employer] [address], [place], [address], [place] - [facility] 10/29/2024 17:13:16 01/25/2025 text/html ROS as noted in the HPI 84 year old female who presents to the office today with concerns of sleep problems- worrying about everything and not able to sleepnervous about everythinganxiety- pt states she always feels anxious and nervous about everything Bran Rose [facility] [address], [place], [address], [place] [facility] 01/25/2025 15:57:13 01/29/2025 text/html 84 year old female who presents to the office today with concerns ofanxiety, nervous, sleep problems, pt states she does not feel well hallucination s, shaking, agitated, very restlesshot at times, cold at timesstates buspirone left a bad taste in her mouth and caused her to be nauseated Bran RoseLUCILA [address], [place], [address], [facility] - [facility] 01/29/2025 14:42:17 02/07/2025 text/html ROS as noted in the HPI 84 yr old with continued uti symptoms. Has completed a course of keflex antibiotics.family dropped off urine pt unable/unwilling to leave house. Bran RoseLUCILA [address], [place], [address], [facility] - [facility] 02/07/2025 11:20:07 03/12/2025 text/html ROS as noted in the HPI 84 yr old female presents for possible uti and possible shingles. pt states she has had pain in flank for a few days but noticed now she has rash with burning and pain.pt also having to urinate alot Bran OrtizLUCILA andersen [address], [place], [address], [facility] - [facility] 03/15/2025 08:22:32 OBGyn Episode No OBEpisode recorded.
== END 2025-04-16 23:59 | disposition home or self-care (01) ==
LOC: LAB.DROPOF 04-17 20:59
PROVIDERS: PCP Internal Medicine; Visit Provider Internal Medicine
DX: I27.81 Cor pulmonale (chronic) (principal); N39.0 Urinary tract infection, site not specified; E03.9 Hypothyroidism, unspecified; D64.9 Anemia, unspecified
CPT/HCPCS: 80053; 84443; 87086; 87088; 87186